=== PATIENT | female | born 2000 | race Caucasian/White ===

== ENCOUNTER 2024-07-21 19:23 | Inpatient (IN) | payer OTHER, SELFPAY ==
--- OUTSIDE RECORDS SUMMARY | 2024-07-21 19:28 | XMS_ITS | Clinical Summary ---
Author Organization [facility] Address [address] [place] [phone] Phone Care Team Providers Care Lead Pressman [employer] Name Role Phone Physician, No Pcp Primary Care Provider Unavaila ble Allergies Active Allergy Reactions Criticality Noted Date Comments Sulfa (Sulfonamide Antibiotics) 09/2024 Medications Medication Sig Dispensed Refills Start Date End Date Status LORazepam (ATIVAN) 0.5 mg tablet Take 1 tablet (0.5 mg total) by mouth 1 (one) time each day. Max Daily Amount: 0.5 mg Active buPROPion SR (WELLBUTRIN SR) 150 mg 12 hr tablet Take 1 tablet (150 mg total) by mouth 1 (one) time each day. Do not crush, chew, or split. Active cloNIDine (CATAPRES) 0.1 mg tablet Take 1 tablet (0.1 mg total) by mouth 2 (two) times a day. Active norethindrone-ethinyl estradiol (FEMHRT 1/5) 1-5 mg-mcg per tablet Take 1 tablet by mouth 1 (one) time each day. Active DULoxetine (CYMBALTA) [address] capsule Take 2 capsules (120 mg total) by mouth 1 (one) time each day. Do not crush or chew. Active ARIPiprazole (ABILIFY) 5 mg tablet Take 1 tablet (5 mg total) by mouth 1 (one) time each day. Active methylphenidate 36 mg ER tablet Take 1 tablet (36 mg total) by mouth 1 (one) time each day in the morning. Do not crush, chew, or split. Max Daily Amount: 36 mg Active Encounters Date Type Department Care Team Description 07/20/2024 7:18 PM EST - 07/21/2024 7:08 PM EST Emergency [facility] Emergency [address] [place] [address] Dallas Negrete MD Millay, Scot A, MD Cauchon, Matthew C, Major depressive disorder, recurrent episode, moderate (CMS/HCC) (Primary Dx) Discharge Disposition: Another Health Care Institution Not Defined from Last 3 Months Social History Tobacco Use Types Packs/Day Years Used Date Smoking Tobacco: Never Assessed Sex and Gender Information Value Date Recorded Sex Assigned at Female 07/20/2024 8:41 PM EST Gender Identity Female 07/20/2024 8:41 PM EST Sexual Orientation Straight 07/20/2024 8: 41 PM EST Job Start Date Occupation Industry Not on file Not on file Not on file Obstetrics History Last Filed Vital Signs Vital Sign Reading Time Taken Comments Blood Pressure 94/68 07/21/2024 3:33 PM EST Pulse 90 07/21/2024 3:33 PM EST Temperature 36.3 ??C (97.3 ??F) 07/21/2024 3:33 PM ES T Respiratory Rate 18 07/21/2024 5:54 AM EST Oxygen Saturation 100% 07/21/2024 3:33 PM EST Inhaled Oxygen Concentration - - Weight 72.6 kg (160 lb) 07/20/2024 7:23 PM EST Height 160 cm (5' 3 ) 07/20/2024 7:23 PM EST Body Mass Index 28.34 07/20/2024 7:23 PM EST Plan of Treatment Health Maintenance Due Date Last Done Comments Cholesterol Screening (Lipid Panel) 07/17/2019 HIV Screening 07/17/2019 Hepatitis C Screening 07/17/2019 Social Influencers of Health Screening 07/17/2019 Cervical Cancer Screening: Pap Smear 02/16/2020 COVID-19 Vaccine ( season) 2024 Influenza Vaccine (#1) 2024 9, 04/01/2017, 02/22/2016, Additional history exists Depression Screening 07/06/2025 07/06/2024 DTaP,Tdap,and Td Vaccines (8 - Td or Tdap) 10/17/2030 10/17/2020, 05/27/2011, 04/18/2004, Additional history exists HIB Vaccines Completed 05/29/2000, 12/1999, 1999, Additional history exists Pneumococcal Vaccine: Pediatrics (0 to 5 Years) and At-Risk Patients (6 to 64 Years) Completed 08/27/2000, 05/29/2000, 02/20/2000 Hepatitis B Vaccines Completed 07/29/2001, 04/06/2001, 1999 MMR Vaccines Completed 04/27/2003, 05/29/2000 IPV Vaccines Completed 04/18/2004, 08/14, 1999, Additional history exists Varicella Vaccines Completed 07/01/2007, 02/20/2000 HPV Vaccines Completed 02/22/2016, 08/15, 03/07/2015 Meningococcal ACWY Vaccine Completed 04/01, 08/31/2012, 05/27/2011 Hepatitis A Vaccines Aged Out No long er eligible based on patient's age to complete this topic RSV Immunization Patients Under 20 months Aged Out No longer eligible based on patient's age to complete this topic Procedures Procedure Name Priority Date/Time Associated Diagnosis Comments ECG 12-LEAD STAT 07/20/2024 11:05 PM EST ECG 12-LEAD STAT 07/20/2024 8:10 PM EST CBC WITH AUTO DIFFERENTIAL STAT 07/20/2024 7:59 PM EST SALICYLATE LEVEL STAT 07/20/2024 7:59 PM EST ACETAMINOPHEN LEVEL STAT 07/20/2024 7 :59 PM EST ETHANOL STAT 07/20/2024 7:59 PM EST COMPREHENSIVE METABOLIC PANEL STAT 07/20/2024 7:59 PM EST CBC AND DIFFERENTIAL STAT 07/20/2024 7:59 PM EST POC , URINE DIAGNOSTIC STAT 07/20/2024 7:49 PM EST POC , URINE DIAGNOSTIC STAT 07/20/2024 7:45 PM EST METHADONE SCREEN, URINE STAT 07/20/2024 7:43 PM EST PHENCYCLIDINE, URINE STAT 07/20/2024 7:43 PM EST BUPRENORPHINE SCREEN, URINE STAT 07/20/2024 7:43 PM EST DRUG ABUSE SCREEN 8A PANEL, URINE STAT 07/20/2024 7:43 PM EST from Last 3 Months Results * (ABNORMAL) CBC auto differential (07/20/2024 7:59 PM EST) [facility] WBC 11.9(H) 4.8 - 10.8 K/mcL LAB HEMETOLOGY METHOD 07/20/2024 8:[address] [facility] RBC 4.40 3.80 - 4.80 M/mcL LAB HEMETOLOGY METHOD 07/20/2024 8:[address] [facility] Hemoglobin 13.6 11.5 - 16.0 g/dL LAB HEMETOLOGY METHOD 07/20/2024 8:[address] [facility] Hematocrit 38.9 35.0 - 47.0 % LAB HEMETOLOGY METHOD 07/20/2024 8:[address] [facility] MCV 89.2 79.0 - 98.0 FL LAB HEMETOLOGY METHOD 07/20/2024 8:[address] [facility] MCH 31.2 27.0 - 32.0 pcg LAB HEMETOLOGY METHOD 07/20/2024 8:[address] [facility] MCHC 35.0 32.0 - 37.0 g/dL LAB HEMETOLOGY METHOD 07/20/2024 8:[address] [facility] RDW 11.0 11.0 - 15.0 % LAB HEMETOLOGY METHOD 07/20/2024 8:[address] [facility] Platelets 284 130 - 400 K/mcL LAB HEMETOLOGY METHOD 07/20/2024 8:[address] [facility] MPV 10.5 7.0 - 11.0 FL LAB HEMETOLOGY METHOD 07/20/2024 8:[address] [facility] NRBC 0.0 <1.0 % LAB HEMETOLOGY METHOD 07/20/2024 8:[address] [facility] NRBC Absolute 0.00 <0.10 K/mcL LAB HEMETOLOGY METHOD 07/20/2024 8:[address] [facility] Neutrophils Relative 71.2 % LAB HEMETOLOGY METHOD 07/20/2024 8:[address] [facility] Lymphocytes Relative 17.8 % LAB HEMETOLOGY METHOD 07/20/2024 8:[address] [facility] Monocytes Relative 9.8 % LAB HEMETOLOGY METHOD 07/20/2024 8:[address] [facility] Eosinophils Relative 0.4 % LAB HEMETOLOGY METHOD 07/20/2024 8:[address] [facility] Basophils Relative 0.3 % LAB HEMETOLOGY METHOD 07/20/2024 8:[address] [facility] Immature Granulocytes Relative 0.5 % LAB HEMETOLOGY METHOD 07/20/2024 8:[address] [facility] Neutrophils Absolute 8.45(H) 1.50 - 7.00 K/mcL LAB HEMETOLOGY METHOD 07/20/2024 8:[address] [facility] Lymphocytes Absolute 2.12 1.00 - 5.00 K/mcL LAB HEMETOLOGY METHOD 07/20/2024 8:[address] [facility] Monocytes Absolute 1.16(H) 0.20 - 1.00 K/mcL LAB HEMETOLOGY METHOD 07/20/2024 8:[address] [facility] Eosinophils Absolute 0.05 0.00 - 0.50 K/mcL LAB HEMETOLOGY METHOD 07/20/2024 8:31 PM EST [facility] Basophils Absolute 0.04 0.00 - 0.20 K/[facility] LAB HEMETOLOGY METHOD 07/20/2024 8:31 PM EST [facility] Immature Granulocytes Absolute 0.06(H) 0.00 - 0.03 K/[facility] LAB HEMETOLOGY METHOD 07/20/2024 8:31 PM EST [facility] Blood Venous blood specimen / Unknown Venipuncture / Unknown 07/20/2024 7:59 PM EST 07/20/2024 8:11 PM EST Dallas Negrete MD LAB BLOOD ORDERABLE S Performing Organization Address City/[facility]/ZIP Co de Phone Number [facility] [address] [place] [address], * Ethanol (07/20/2024 7:59 PM EST) Ethanol Level <3 0 - 10 mg/dL LAB CHEMISTRY METHOD 07/20/2024 8:50 PM EST [facility] Blood Venous blood specimen / Unknown Venipuncture / Unknown 07/20/2024 7:59 PM EST 07/20/2024 8:11 PM EST Dallas Negrete MD LAB BLOOD ORDERABLE S Performing Organization Address City/[facility]/ZIP Co de Phone Number [facility] [address] [place] [address], * (ABNORMAL) Acetaminophen level (07/20/2024 7:59 PM EST) Acetaminophen Level <2.0(L) 10.0 - 30.0 mcg/mL LAB CHEMISTRY METHOD 07/20/2024 8:50 PM EST [facility] Blood Venous blood specimen / Unknown Venipuncture / Unknown 07/20/2024 7:59 PM EST 07/20/2024 8:11 PM EST Dallas Negrete MD LAB BLOOD ORDERABLE S [facility] [address] [place] [address], [place] [phone] * (ABNORMAL) Salicylate level (07/20/2024 7:59 PM EST) Salicylate Level <1.7(L) 2.0 - 29.0 mg/dL LAB CHEMISTRY METHOD 07/20/2024 8:50 PM EST [facility] Blood Venous blood specimen / Unknown Venipuncture / Unknown 07/20/2024 7:59 PM EST 07/20/2024 8:11 PM EST Dallas Negrete MD LAB BLOOD ORDERABLE S Performing Organization Address City/[facility]/ZIP Co de Phone Number [facility] [address] [place] [address], [place] [phone] * (ABNORMAL) Comprehensive metabolic panel (07/20/2024 7:59 PM EST) Sodium 135 133 - 145 mmol/L LAB CHEMISTRY METHOD 07/20/2024 8:[address] [facility] Potassium 3.9 3.5 - 5.5 mmol/L LAB CHEMISTRY METHOD 07/20/2024 8:[address] [facility] Chloride 105 96 - 110 mmol/L LAB CHEMISTRY METHOD 07/20/2024 8:[address] [facility] CO2 24 21 - 32 mmol/L LAB CHEMISTRY METHOD 07/20/2024 8:[address] [facility] Anion Gap 6 3 - 11 LAB CHEMISTRY METHOD 07/20/2024 8:[address] [facility] Glucose 136(H) 70 - 100 mg/dL LAB CHEMISTRY METHOD 07/20/2024 8:[address] [facility] BUN 12 5 - 25 mg/dL LAB CHEMISTRY METHOD 07/20/2024 8:[address] [facility] Creatinine 0.91 0.50 - 1.10 mg/dL LAB CHEMISTRY METHOD 07/20/2024 8:[address] [facility] eGFR 90 >=60 mL/min/1. 73m2 LAB CHEMISTRY METHOD 07/20/2024 8:[address] [facility] Comment:Calculation based on the??Chronic Kidney Disease Epidemiology Collaboration (CKD-EPI) equation refit??without adjustment for race. BUN/Creatinine Ratio 13.2 LAB CHEMISTRY METHOD 07/20/2024 8:[address] [facility] Calcium 9.2 8.5 - 10.5 mg/dL LAB CHEMISTRY METHOD 07/20/2024 8:[address] [facility] AST (SGOT) 13 10 - 42 unit/L LAB CHEMISTRY METHOD 07/20/2024 8:[address] [facility] ALT (SGPT) 21 10 - 60 unit/L LAB CHEMISTRY METHOD 07/20/2024 8:[address] [facility] Alkaline Phosphatase 62 42 - 121 unit/L LAB CHEMISTRY METHOD 07/20/2024 8:[address] [facility] Total Protein 6.7 6.0 - 8.0 g/dL LAB CHEMISTRY METHOD 07/20/2024 8:[address] [facility] Albumin 3.9 3.2 - 5.0 g/dL LAB CHEMISTRY METHOD 07/20/2024 8:[address] [facility] Total Bilirubin 0.3 0.0 - 1.4 mg/dL LAB CHEMISTRY METHOD 07/20/2024 8:[address] [facility] Blood Venous blood specimen / Unknown Venipuncture / Unknown 07/20/2024 7:59 PM EST 07/20/2024 8:11 PM EST Dallas Negrete MD LAB BLOOD ORDERABLE S [facility] [address] [place] [address], [place] [phone] * POC , urine manually resulted (07/20/2024 7:49 PM EST) Only the most recent of2 resultswithin the time period is included. HCG, Ur POC Negative Negative POC hCG Int QC Pass? Yes Yes Urine Urine specimen obtained by clean catch procedure / Unknown 07/20/2024 7:49 PM EST Dallas Negrete MD POINT OF CARE TEST ENTER/EDIT ORDERABLES * Drug abuse screen 8a panel, urine (07/20/2024 7:43 PM EST) Amphetamine Screen, Ur Negative Negative LAB CHEMISTRY METHOD 07/20/2024 9:[address] [facility] Comment:Certain OTC medicati ons containing ephedrine, phenylephrine, pseudoephedrine and phenylpropanolamine can cause false positive results. Barbiturate Screen, Ur Negative Negative LAB CHEMISTRY METHOD 07/20/2024 9:14 PM EST [facility] Benzodiazepine Screen, Ur Negative Negative LAB CHEMISTRY METHOD 07/20/2024 9:[address] [facility] Cocaine Screen, Ur Negative Negative LAB CHEMISTRY METHOD 07/20/2024 9:14 PM EST [facility] Opiate Screen, Ur Negative Negative LAB CHEMISTRY METHOD 07/20/2024 9:[address] [facility] Cannabinoid (THC) Screen, Ur Negative Negative LAB CHEMISTRY METHOD 07/20/2024 9:[address] [facility] Comment:Specimens from patie nts taking pantoprazole sodium (Protonix) have been shown to produce false positive results. Oxycodone Screen, Ur Negative Negative LAB CHEMISTRY METHOD 07/20/2024 9:14 PM EST [facility] Fentanyl, Ur Negative Negative LAB CHEMISTRY METHOD 07/20/2024 9:[address] [facility] Urine Urine specimen obtained by clean catch procedure / Unknown Non-blood Collection / Unknown 07/20/2024 7:43 PM EST 07/20/2024 8:04 PM EST Tamika [facility] - 07/20/2024 9:14 PM EST Assay cutoffs: Amphetamines ? 1000 ng/mL Barbiturates ?200 ng/mL Benzodiazepines ?? 200 ng/mL Cocaine ? 300 ng/mL Fentanyl ?1 ng/mL Opiates ? 300 ng/mL Oxycodone ? 100 ng/mL THC ?50 ng/mL Semi-quantitative assay for screening purposes only. Unconfirmed screening result should not be used for non-medical purposes. *ALTERNATE METHOD CONFIRMATION DONE UPON REQUEST ONLY* Dallas Negrete MD LAB URINE ORDERABLE S Performing Organization Address [facility] de Phone Number [facility] [address] [place] [address], * Buprenorphine screen, urine (07/20/2024 7:43 PM EST) [facility] Buprenorphine Screen Urine Negative Negative LAB CHEMISTRY METHOD 07/20/2024 8:48 PM EST [facility] Urine Urine specimen obtained by clean catch procedure / Unknown Non-blood Collection / Unknown 07/20/2024 7:43 PM EST 07/20/2024 8:04 PM EST Tamika [facility] - 07/20/2024 8:48 PM EST Assay cutoff 5 ng/mL Semi-quantitative assay for screening purposes only. Unconfirmed screening result should not be used for non-medical purposes. *ALTERNATE METHOD CONFIRMATION DONE UPON REQUEST ONLY* Dallas Negrete MD LAB URINE ORDERABLE S Performing Organization Address [facility]/ZIP Co de Phone Number [facility] [address] [place] [address], [place] [phone] * Methadone, urine (07/20/2024 7:43 PM EST) Methadone Screen, Urine Negative Negative LAB CHEMISTRY METHOD 07/20/2024 8:48 PM EST [facility] Comment: Assay cutoff 300 ng/mL Semi-quantitative assay for screening purposes only. Unconfirmed screening result should not be used for non-medical purposes. *ALTERNATE METHOD CONFIRMATION DONE UPON REQUEST ONLY* Urine Urine specimen obtained by clean catch procedure / Unknown Non-blood Collection / Unknown 07/20/2024 7:43 PM EST 07/20/2024 8:04 PM EST Dallas Negrete MD LAB URINE ORDERABLE S Performing Organization Address [facility]/ZIP Co de Phone Number [facility] [address] [place] [address], [place] [phone] * Phencyclidine, urine (07/20/2024 7:43 PM EST) PCP Scrn, Ur Negative Negative LAB CHEMISTRY METHOD 07/20/2024 8:48 PM EST [facility] Comment: Assay cutoff 25 ng/mL Semi-quantitative assay for screening purposes only. Unconfirmed screening result should not be used for non-medical purposes. *ALTERNATE METHOD CONFIRMATION DONE UPON REQUEST ONLY* Urine Urine specimen obtained by clean catch procedure / Unknown Non-blood Collection / Unknown 07/20/2024 7:43 PM EST 07/20/2024 8:04 PM EST Dallas Negrete MD LAB URINE ORDERABLE S [facility] [address] [place] [address], [place] [phone] from Last 3 Months Care Teams Lead [employer]man [employer] Relationship Specialty Start Date End Date Physician, No Pcp PCP - General 07/20/24
[2024-07-21 19:40] VITALS: BP 102/71; PULSE 90; RESP 16; TEMP 36.6; O2SAT 99
[2024-07-21 20:25] VITALS: BMI 28.1
--- NOTE | 2024-07-21 23:01 | PC.ADMIT ---
PT IS A 24 YEAR OLD, MALTESE SPEAKING, FEMALE ADMITTED TO [facility] FROM [facility] FOR AN INTENTIONAL SUICIDE ATTEMPT VIA OVERDOSE ON CLONIDINE. PT WAS ADMITTED ON A CONDITIONAL VOLUNTARY. 15 MINUTE CHECKS. PT HAS TURNERS SYNDROME. NO OTHER MEDICAL CONCERNS. SKIN CHECK WAS UNREMARKABLE. INDEPENDENT AMBULATION. EKG NORMAL SINUS RHYTHM. VITAL SIGNS STABLE. PT HAS A HISTORY OF CHRONIC DEPRESSION. NO PRIOR PSYCHIATRIC ADMISSIONS. NO PRIOR SUICIDE ATTEMPTS. NEGATIVE TOX SCREEN. SULFA ALLERGY. PT REPORTS THAT SHE DRINKS ALCOHOL 1-2 TIMES PER WEEK, 1 OR 2 DRINKS PER TIME. PT REPORTS THAT SHE HAS A THERAPIST WHICH SHE FINDS MINIMALLY HELPFUL. PT HAS A PSYCHIATRIST AND IS ON MEDICATIONS WHICH SHE ALSO FINDS MINIMALLY HELPFUL. SHE REPORTS MILD ANXIETY. SEVERE DEPRESSION. OCCASIONAL THOUGHTS OF SUICIDE. DENIES ANY CURRENT THOUGHTS, PLAN OR INTENT. PT DENIES AH/VH/HI. PT REPORTS EXPERIENCING FREQUENT EPISODES OF DISSOCIATION WHERE SHE FEELS SHE IS NOT IN REALITY . PT LIVES WITH HER MOTHER WHICH SHE FEELS LIKE A BURDEN TO AT TIMES. PT REPORTS THAT SHE HAS A MILD TRAUMA HISTORY. SHE REPORTS HER SISTER HAD A SUBSTANCE USE PROBLEM YEARS AGO WHICH WAS DIFFICULT. HER FATHER FROM ALCOHOL RELATED CAUSES APPROXIMATELY ONE YEAR AGO. PT SIGNED RELEASES, PARTICIPATED IN SAFETY TOOL, AND WENT TO SLEEP. FEELS SAFE ON UNIT.
--- NOTE | 2024-07-21 23:36 | HO.PM.IMCN ---
History of Present Illness Data of Consult Service Date: 07/21/24 Requesting physician: Marky Gillette Primary Care Provider: Unknown Physician HPI Reason for consult: Medical consult Patient is a 24-year-old female with a past medical history significant for alcohol use disorder, and Nash's syndrome, transferred from [facility] and admitted to adult Psychiatry for intentional suicide attempt to overdose on clonidine. She reports that she drinks 1 to 2 times a week not in excess and has no history of alcohol withdrawal. She has no current medical complaints including headache, change in vision, chest pain, shortness of breath, abdominal pain, urinary symptoms including frequency urgency or hematuria. Review of Systems Constitutional: Constitutional: Denies body ache(s), Denies chills, Denies fatigue, Denies fever(s) and Denies headache(s) Eyes: Eyes: Denies change in vision and Denies photophobia ENT: Denies headache(s), Denies nasal congestion, Denies nasal discharge and Denies neck pain Cardiovascular: Cardiovascular: Denies chest pain, Denies rapid heart rate, Denies leg edema, Denies lightheadedness and Denies dyspnea Respiratory: Respiratory: Denies chest congestion, Denies cough, Denies dyspnea and Denies wheezing Gastrointestinal: Gastrointestinal: Denies constipation, Denies diarrhea, Denies nausea and Denies vomiting Genitourinary: Genitourinary: Denies hematuria, Denies difficulty voiding and Denies urinary urgency Musculoskeletal: Musculoskeletal: Denies neck pain, Denies numbness and Denies tingling Integumentary/Breasts: Skin/Breast: Denies rash Neurologic: Denies confusion, Denies headache(s), Denies numbness and Denies tingling Psychiatric: Psychiatric: Denies confusion Endocrine: Endocrine: Denies fatigue Hematologic/Lymphatic: Hematologic/Lymphatic: Denies easy bleeding and Denies easy bruising Allergic/Immunologic: Allergic/Immunologic: Denies wheezing PMFSH Functional capacity: independent ambulation Social History Household Members: Family Household Members Other:: MOTHER Housing: House Do you presently have visiting nurse or other home services: No Patient Tobacco Use Status: Never used Tobacco Smoked in Last 30 Days: No e-Cigarette/Vaping Use: Never Used Patient Interested in Nicotine Replacement: No Patient Given Instructions on How to Stop Smoking: No Second Hand Smoke Exposure: No Use of substances other than those prescribed or required for medical reasons: No Currently Displaying Signs/Symptoms of Drug Intoxication Withdrawal: No Any prior treatment program specific to substance use: No Have you been hit, kicked, punched, or otherwise hurt by someone within the past year? If so, by whom?: No Do you feel safe in your current relationship?: No Current Relationship Is there a partner from a previous relationship who is making you feel unsafe now?: No Are you made to feel afraid or neglected: No Advance Directives: No Advance Directives Information Provided: No Do you have thoughts of harming others: None Do you have a plan to hurt others: No Plan Recently lost weight without trying: No Eating poorly because of decreased appetite: No Nutrition Risks: No Nutritional Risk Patient : No : No Poor oral hygiene: No Narrative: Social occasional alcohol, 1 to 2 times a week, 1-2 drinks at a time. No substance use or smoking Meds Allergies Allergy/AdvReac Type Severity Reaction Status Date / Time Sulfa (Sulfonamide Allergy Unknown Verified 07/21/24 20:23 Antibiotics) Active Medications: Current Medications Acetaminophen (Acetaminophen 325 Mg Tablet) 650 mg PO Q6H PRN PRN Reason: Headache/Pain Mild Scale (1-3) Al Hydroxide/Mg Hydroxide (Magnesium Hydrox/Alum Hydrox 30 Ml Oral.Susp) 30 ml PO Q6H PRN PRN Reason: Heartburn/Nausea Hydroxyzine HCl (Hydroxyzine Hcl 25 Mg Tablet) 25 mg PO Q6H PRN PRN Reason: Anxiety Magnesium Hydroxide (Milk Of Magnesia 30 Ml Oral.Susp) 30 ml PO DAILY PRN PRN Reason: Constipation Nicotine Polacrilex (Nicotine Polacrilex 2 Mg Gum) 4 mg BUCCAL Q2H PRN PRN Reason: Nicotine Cravings Trazodone HCl (Trazodone Hcl 50 Mg Tablet) 50 mg PO BEDTIME MRX1 PRN PRN Reason: Insomnia Home Medications ?Medication ?Instructions ?Recorded ?Confirmed ?Last Taken ?Type aripiprazole 5 mg tablet 5 mg PO DAILY 07/21/24 07/21/24 Unknown History bupropion HCl 150 mg 24 hr tablet, 150 mg PO DAILY 07/21/24 07/21/24 Unknown History extended release dextroamphetamine-amphetamine ER 25 mg PO QAM 07/21/24 07/21/24 Unknown History 25 mg 24hr capsule,extend release duloxetine 60 mg capsule,delayed 120 mg PO DAILY 07/21/24 07/21/24 Unknown History release Physical Exam Vital Signs and Narrative: Vital Signs: Last Vital Signs Temp 97.9 F 07/21/24 19:40 Pulse 90 07/21/24 19:40 Resp 16 07/21/24 19:40 BP 102/71 07/21/24 19:40 Pulse Ox 99 07/21/24 19:40 O2 Del Method Room Air 07/21/24 19:40 BMI result Body Mass Index 28.1 General: AOx3, no acute distress Resp: CTA bilaterally CVS: S1, S2, RRR GI: +BS, NT, no distention Skin: Warm, dry Neuro: Cranial nerves II-XII grossly intact bilaterally. Motor grossly intact bilaterally Extremities: No LE edema Psych: Appropriate affect Const: General: No confusion Orientation/consciousness: No confusion Eyes: Direct Ophthalmoscopy: No photophobia Neuro: General: No confusion Assessment and Plan (1) Medical clearance for psychiatric admission: Status: Acute Plan Patient is a 24-year-old female with a past medical history significant for alcohol use disorder, and Nash's syndrome, transferred from [facility] and admitted to adult Psychiatry for intentional suicide attempt to overdose on clonidine. No acute medical concerns. Patient cleared for psychiatric floor. Mood disorder - plan per psych Alcohol use disorder - does not report significant alcohol use at this time therefore no concern for alcohol withdrawal Thank you for allowing me to participate in the pt's care. Signing off for now. Please contact the medical team if any questions or concerns.
[2024-07-22 08:00] VITALS: BP 88/51; PULSE 70; RESP 18; TEMP 36.6; O2SAT 99
[2024-07-22 09:58] LABS: MANUAL DIFF FLAG NO
[2024-07-22 10:08] LABS: Basophils Percent Auto 0.3 % (0-2); Eosinophils Absolute Auto 0.1 X10*3/uL (0.0-0.4); Eosinophils Percent Auto 2.1 % (0-4); Hematocrit 41.1 % (37.0-47.0); Hemoglobin 14.3 g/dl (12.0-16.0); Imm Gran Abs Auto 0.03 X10*3/uL (0.00-0.03); Imm Gran Pct Auto 0.5 % (0.0-0.4); Lymphocytes Absolute Auto 2.4 X10*3/uL (1.2-4.9); Lymphocytes Percent Auto 36.1 % (20-40); Mean Corpuscular HGB Conc 34.8 g/dl (31.0-35.0); Mean Corpuscular Hemoglobin 31.6 pg (27.0-33.0); Mean Corpuscular Volume 90.9 fL (80.0-98.0); Mean Platelet Volume 10.6 fL (9.4-12.3); Monocytes Absolute Auto 0.5 X10*3/uL (0.1-1.2); Monocytes Percent Auto 6.9 % (2-11); Neutrophils Absolute Auto 3.5 x10*3/uL (2.0-8.3); Neutrophils Percent Auto 54.1 % (45-73); Platelet Count 252 X10*3/uL (160-400); Red Blood Count 4.52 X10*6/uL (4.20-5.50); Red Cell Distribution Width 11.4 % (11.0-16.0); White Blood Count 6.5 X10*3/uL (4.8-10.8)
[2024-07-22 11:00] LABS: Alanine Aminotransferase 13 U/L (0-31); Alkaline Phosphatase 61 U/L (39-117); Aspartate Amino Transferase 25 U/L (5-31); Bilirubin Direct 0.1 mg/dL (0.0-0.5); Bilirubin Total 0.4 mg/dL (0.0-1.0); Cholesterol 190 mg/dL (<200); HDL Cholesterol 58 mg/dL (>40); LDL Cholesterol Calculated 106 mg/dL (<100); Total Protein 6.5 g/dL (6.5-8.0); Triglycerides 134 mg/dL (<150)
[2024-07-22 11:06] LABS: Free T4 (Free Thyroxine) 1.17 ng/dL (0.71-1.85)
[2024-07-22 11:15] LABS: Folate 7.3 ng/mL (> or = 4.0); Vitamin B12 212 pg/mL (200-900)
[2024-07-22 11:18] LABS: Estimated Average Glucose 97 mg/dL; Hemoglobin A1C 113.2644 umol/L; Total Hemoglobin (HGBA1C) 3598.4106 umol/L
--- NOTE | 2024-07-22 11:39 | HO.PSYADMNOT ---
HPI Date of Service: 07/22/24 Chief Complaint: Major depressive disorder, recurrent, moderate Sources of Information: patient interviewed, chart reviewed and crisis/core team assessment reviewed HPI Subjective Notes: Romero Warning, Conditional Voluntary and 3 Day Narrative: Pt is a 24-year-old female with history of Nash syndrome, depression anxiety, starting in middle school who self presents for worsening depression, following SI with intentional overdose. Patient reports that on Cymbalta 120 mg her depression was a little improved and last summer she was doing overall okay, enjoying working at [employer] in [place]. Got back this fall, at home by herself, depression set back in but it ebbed some. Around late April depression worsened, with seasonal change and the approaching 1 year anniversary of her fathers this June. Patient mostly staying at home by herself throughout the day. With worsening depression, pt developed diminished interest,concentration, appetite low energy, increased guilty feelings, and trouble sleeping; chronically she'll have intermittent passive wish however, these thoughts intensified. Due to depression, started missing Cymbalta doses about 3x week over last 2 weeks This past week, she had an increase in self-deprecating thoughts, that she's a bad person. She tried to distract herself but became overwhelmed with unrelenting thoughts that she does not deserve to be here and made sudden decision to take an overdose, left a note from mom and took overdose of Clonidine; she immediately called 911. In hindsight she does not think she wanted to be forever, and more just wanted the intrusive thoughts to stop. Patient currently not suicidal but remains very depressed and open to medication management. Denies history of manic type episodes or behaviors; no drug use; minimal alcohol intake; no overt trauma history Patient seen on 07/22/2024 around 11:30 Past Psychiatric History: No past psych admissions No past suicide attempts Medication trials: -currently on Cymbalta 120 mg the past year which she finds helpful -currently on Wellbutrin XL 150 mg for about a year which she thought was helpful -currently on Abilify 5 mg for about a year which she feels helped with moments of deeper depression -prozac: helped but caused tremors -paxil: Does not remember effect -others Medical Evaluation Reviewed: Yes [facility] Medical History (Updated 07/23/24 @ 09:19 by Marky Gillette MD) MDD (major depressive disorder), recurrent severe, without psychosis Family History: Mother: Depression father: alcoholism Sister: Addiction history Social History: graduate with associate's degree Father a year ago July 2023 3 sisters lives at home mom who is supportive Substance History: None Trauma History: No overt trauma history Diagnostics Vital Signs (24Hr): Vital Signs - 24 hr 07/21/24 19:40 07/22/24 08:00 Temperature 97.9 F 97.8 F Pulse Rate 90 70 Respiratory Rate 16 18 Blood Pressure 102/71 88/51 L Pulse Oximetry 99 99 Oxygen Delivery Method Room Air Room Air BMI result Body Mass Index 28.1 Labs 07/22/24 09:30 Labs: Laboratory Results - last 48 hr 07/22/24 09:30 WBC 6.5 RBC 4.52 Hgb 14.3 Hct 41.1 MCV 90.9 MCH 31.6 MCHC 34.8 RDW 11.4 Plt Count 252 MPV 10.6 Immature Gran % (Auto) 0.5 H Neut % (Auto) 54.1 Lymph % (Auto) 36.1 [place] % (Auto) 6.9 Eos % (Auto) 2.1 Baso % (Auto) 0.3 Lymph # (Auto) 2.4 [place] # (Auto) 0.5 Eos # (Auto) 0.1 Baso # (Auto) 0.0 Abs Immat Gran (auto) 0.03 Absolute Neuts (auto) 3.5 Absolute Nucleated RBC 0.000 Nucleated RBC % (auto) 0.0 Estimat Average Glucose 97 Hemoglobin A1c % 5.0 Total Bilirubin 0.4 Direct Bilirubin 0.1 AST 25 ALT 13 Alkaline Phosphatase 61 Total Protein 6.5 Albumin 4.0 Triglycerides 134 Cholesterol 190 LDL Cholesterol, Calc 106 H HDL Cholesterol 58 Vitamin B12 212 Folate 7.3 TSH 2.20 Free T4 1.17 Meds/Allergies Meds Home Medications ?Medication ?Instructions ?Recorded ?Confirmed ?Type aripiprazole 5 mg tablet 5 mg PO DAILY 07/21/24 07/22/24 History bupropion HCl 150 mg 24 hr tablet, 150 mg PO DAILY 07/21/24 07/22/24 History extended release duloxetine 60 mg capsule,delayed 120 mg PO DAILY 07/21/24 07/22/24 History release lorazepam 0.5 mg tablet 0.5 mg PO DAILY PRN Anxiety 07/22/24 07/22/24 History methylphenidate HCl 36 mg 36 mg PO DAILY 07/22/24 07/22/24 History tablet,extended release 24 hr trazodone 50 mg tablet 50 - 100 mg PO BEDTIME 07/22/24 07/22/24 History Allergies Allergies Allergy/AdvReac Type Severity Reaction Status Date / Time Sulfa (Sulfonamide Allergy Unknown Verified 07/21/24 20:23 Antibiotics) Mental Status Exam Mental Status Exam Narrative: Pt is alert and oriented; behavior is cooperative, quiet, calm; patient is not in distress; dressed in casual attire with unkempt hair but adequate hygiene; mood is described as depressed and affect congruent, downcast, reticent; eye contact limited; Speech is slow and soft; psychomotor retardation present; thought process is organized and goal directed; Thought content is on self-deprecating thoughts but also on tx; otherwise pertinent to relevant topics and without any delusional content, paranoid ideations or grandiosity; intermittent passive SI remains but active SI fully resolved; no HI; intrusive thoughts; not sure if AH though patient does seem to be a little internally preoccupied. Patients insight and judgment impaired Assessment & Plan Assessment & Plan (1) MDD (major depressive disorder), recurrent severe, without psychosis: Status: Acute Code(s): F33.2 - Major depressive disorder, recurrent severe without psychotic features (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 Patient reports that on Cymbalta 120 mg her depression was a little improved and last summer she was doing overall okay, enjoying working at [employer] in [place]. Got back this fall, at home by herself, depression set back in but it ebbed some. Around late April depression worsened, with seasonal change and the approaching 1 year anniversary of her fathers this June. Patient mostly staying at home by herself throughout the day. With worsening depression, pt developed diminished interest,concentration, appetite low energy, increased guilty feelings, and trouble sleeping; chronically she'll have intermittent passive wish however, these thoughts intensified. Due to depression, started missing Cymbalta doses about 3x week over last 2 weeks This past week, she had an increase in self-deprecating thoughts, that she's a bad person. She tried to distract herself but became overwhelmed with unrelenting thoughts that she does not deserve to be here and made sudden decision to take an overdose, left a note from mom and took overdose of Clonidine; she immediately called 911. In hindsight she does not think she wanted to be forever, and more just wanted the intrusive thoughts to stop. Patient currently not suicidal but remains very depressed and open to medication management. Denies history of manic type episodes or behaviors; no drug use; minimal alcohol intake; no overt trauma history Formulation/clinical reasoning: Patient has chronic depression and anxiety and prevents with severe depression and clear psychomotor retardation. Also has intrusive thoughts which seem to be self-deprecating thoughts. Will seek to better rule out OCD; need to further assess if any AH. Patient on 3 medications for depression, the combination only being partially helpful. Seems that Abilify was started before Wellbutrin maxed out. Sewer Tapper discussed risks/side effects of medication regimen including risks of antipsychotic/Abilify and also the possibility that with increased Wellbutrin, she may not need Abilify, all of which patient understands. However she wants to remain on Abilify however since she thought it was helpful but agrees to increasing Wellbutrin; will leave Cymbalta since patient found it partially helpful. -history of Nash syndrome which patient cites says something in which has been difficult to accept and a part of her ongoing chronic depression -has therapist however it is clearly not a fit; consistent helpful therapy very likely strong missing component Plan: CV Q 15 minutes Continue Cymbalta 120 mg daily Increase Wellbutrin XL to 300 mg daily Continue Abilify 5 mg daily Will seek together collateral Patient educated on: diagnosis, medication risk/benefits and therapeutic strategies Informed Consent: understands Reason for continued inpatient stay Substantial Risk for: rapid decompensation Statement Statement: I have reviewed the history and physical and performed a pertinent examination on my patient. No changes have occurred unless specified. If the History and Physical was not performed prior to admission, the Hospitalist's service will be consulted for completing the admission physical. Time Spent With Patient Time: Total time managing care of this patient today ____ minutes.
[2024-07-22] MEDS: ARIPiprazole 5 MG TABLET PO (13:01)
[2024-07-22] MEDS: buPROPion HCl XL 300 MG TAB.ER.24H PO (13:01)
[2024-07-22] MEDS: ETHINYL ESTRADIOL PO (14:21)
[2024-07-22] MEDS: NORETHINDRONE ACETATE PO (14:21)
[2024-07-22 20:00] VITALS: BP 128/86; PULSE 104; TEMP 36.7; O2SAT 99
[2024-07-22] MEDS: traZODone HCL 50 MG TABLET PO (21:07)
[2024-07-23 08:00] VITALS: BP 117/72; PULSE 90; TEMP 36.8; O2SAT 98
[2024-07-23] MEDS: ARIPiprazole 5 MG TABLET PO (09:19)
[2024-07-23] MEDS: DULoxetine HCl 60 MG CAPSULE.DR 120 MG PO (09:19)
[2024-07-23] MEDS: NORETHINDRONE ACETATE PO (09:19)
[2024-07-23] MEDS: buPROPion HCl XL 300 MG TAB.ER.24H PO (09:19)
[2024-07-23] MEDS: ETHINYL ESTRADIOL PO (09:19)
--- NOTE | 2024-07-23 09:20 | P.PNPSI_ITS ---
Subjective Subjective Date of Service: 07/23/24 Reason For Visit: Major depressive disorder, recurrent, moderate Interim History: Met with patient; discussed with team Patient reports that she is feeling a little better and has a noticeably brighter affect. She is not sure why she is feeling better, did sleep well enough last night. Patient realized after talking with her mom that she is actually on Wellbutrin 450 mg. Discussed how patient is doing better despite the fact that she has been on lower dose than usual and that perhaps it has been the social interaction of the milieu that has helped her mood increase. Patient started asking about possible discharge Mental Status Exam Mental Status Exam Narrative: Pt is alert and oriented; behavior is cooperative, friendly and calm; patient is not in distress; dressed in casual attire with adequate hygiene; mood is described as better and affect congruent, noticeably brighter; eye contact appropriate; Speech is with a latent pause however otherwise normal rate, volume and prosody; no psychomotor agitation/retardation present; thought process is organized and goal directed; Thought content is on tx, intermittently with self- deprecating thoughts but much less; otherwise pertinent to relevant topics and without any delusional content, paranoid ideations or grandiosity; denies any SI/HI. Denies AVH; seems internally preoccupied but this was addressed and patient said she is just thinking about what she wants to say. Patients insight and judgment improving Diagnostics Vital Signs (24Hr): Vital Signs - 24 hr 07/22/24 20:00 07/23/24 08:00 Temperature 98.1 F 98.2 F Pulse Rate 104 H 90 Blood Pressure 128/86 117/72 Pulse Oximetry 99 98 Oxygen Delivery Method Room Air Room Air BMI result Body Mass Index 28.1 Labs 07/22/24 09:30 Labs: Laboratory Results - last 48 hr 07/22/24 09:30 WBC 6.5 RBC 4.52 Hgb 14.3 Hct 41.1 MCV 90.9 MCH 31.6 MCHC 34.8 RDW 11.4 Plt Count 252 MPV 10.6 Immature Gran % (Auto) 0.5 H Neut % (Auto) 54.1 Lymph % (Auto) 36.1 [place] % (Auto) 6.9 Eos % (Auto) 2.1 Baso % (Auto) 0.3 Lymph # (Auto) 2.4 [place] # (Auto) 0.5 Eos # (Auto) 0.1 Baso # (Auto) 0.0 Abs Immat Gran (auto) 0.03 Absolute Neuts (auto) 3.5 Absolute Nucleated RBC 0.000 Nucleated RBC % (auto) 0.0 Estimat Average Glucose 97 Hemoglobin A1c % 5.0 Total Bilirubin 0.4 Direct Bilirubin 0.1 AST 25 ALT 13 Alkaline Phosphatase 61 Total Protein 6.5 Albumin 4.0 Triglycerides 134 Cholesterol 190 LDL Cholesterol, Calc 106 H HDL Cholesterol 58 Vitamin B12 212 Folate 7.3 TSH 2.20 Free T4 1.17 Medications Medications Current Medications Acetaminophen (Acetaminophen 325 Mg Tablet) 650 mg PO Q6H PRN PRN Reason: Headache/Pain Mild Scale (1-3) Al Hydroxide/Mg Hydroxide (Magnesium Hydrox/Alum Hydrox 30 Ml Oral.Susp) 30 ml PO Q6H PRN PRN Reason: Heartburn/Nausea Aripiprazole (Aripiprazole 5 Mg Tablet) 5 mg PO DAILY [facility] Last Admin: 07/22/24 13:01 Dose: 5 mg Bupropion HCl (Bupropion Hcl Xl 300 Mg Tab.Er.24h) 300 mg PO DAILY [facility] Last Admin: 07/22/24 13:01 Dose: 300 mg Duloxetine HCl (Duloxetine Hcl 60 Mg Capsule.Dr) 120 mg PO DAILY [facility] Hydroxyzine HCl (Hydroxyzine Hcl 25 Mg Tablet) 25 mg PO Q6H PRN PRN Reason: mild Anxiety Magnesium Hydroxide (Milk Of Magnesia 30 Ml Oral.Susp) 30 ml PO DAILY PRN PRN Reason: Constipation Nicotine Polacrilex (Nicotine Polacrilex 2 Mg Gum) 4 mg BUCCAL Q2H PRN PRN Reason: Nicotine Cravings Pt Owned Med ( Fyavolv [ Norethindrone Acetate/Ethinyl Estradiol] 1mg/5mcg Tablets) 1 each PO DAILY [facility] Last Admin: 07/22/24 14:21 Dose: 1 each Trazodone HCl (Trazodone Hcl 50 Mg Tablet) 50 mg PO BEDTIME MRX1 PRN PRN Reason: Insomnia Last Admin: 07/22/24 21:07 Dose: 50 mg Allergies Allergies Allergy/AdvReac Type Severity Reaction Status Date / Time Sulfa (Sulfonamide Allergy Unknown Verified 07/21/24 20:23 Antibiotics) Assessment & Plan Assessment & Plan (1) MDD (major depressive disorder), recurrent severe, without psychosis: Status: Acute Code(s): F33.2 - Major depressive disorder, recurrent severe without psychotic features (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 Patient reports that on Cymbalta 120 mg her depression was a little improved and last summer she was doing overall okay, enjoying working at [employer] in [place]. Got back this fall, at home by herself, depression set back in but it ebbed some. Around late April depression worsened, with seasonal change and the approaching 1 year anniversary of her fathers this June. Patient mostly staying at home by herself throughout the day. With worsening depression, pt developed diminished interest,concentration, appetite low energy, increased guilty feelings, and trouble sleeping; chronically she'll have intermittent passive wish however, these thoughts intensified. Due to depression, started missing Cymbalta doses about 3x week over last 2 weeks This past week, she had an increase in self-deprecating thoughts, that she's a bad person. She tried to distract herself but became overwhelmed with unrelenting thoughts that she does not deserve to be here and made sudden decision to take an overdose, left a note from mom and took overdose of Clonidine; she immediately called 911. In hindsight she does not think she wanted to be forever, and more just wanted the intrusive thoughts to stop. Patient currently not suicidal but remains very depressed and open to medication management. Denies history of manic type episodes or behaviors; no drug use; minimal alcohol intake; no overt trauma history Formulation/clinical reasoning: Patient has chronic depression and anxiety and prevents with severe depression and clear psychomotor retardation. Also has intrusive thoughts which seem to be self-deprecating thoughts. Will seek to better rule out OCD; need to further assess if any AH. Patient on 3 medications for depression, the combination only being partially helpful. Seems that Abilify was started before Wellbutrin maxed out. [employer] Professor discussed risks/side effects of medication regimen including risks of antipsychotic/Abilify and also the possibility that with increased Wellbutrin, she may not need Abilify, all of which patient understands. However she wants to remain on Abilify however since she thought it was helpful but agrees to increasing Wellbutrin; will leave Cymbalta since patient found it partially helpful. -history of Nash syndrome which patient cites says something in which has been difficult to accept and a part of her ongoing chronic depression -has therapist however it is clearly not a fit; consistent helpful therapy very likely strong missing component Hospital course: 07/23 Patient reports that she is feeling a little better and has a noticeably brighter affect. She is not sure why she is feeling better, did sleep well enough last night. Patient realized after talking with her mom that she is actually on Wellbutrin 450 mg. Discussed how patient is doing better despite the fact that she has been on lower dose than usual and that perhaps it has been the social interaction of the milieu that has helped her mood increase. Patient started asking about possible discharge -discussed what appears to be internal preoccupation; patient says her speech latency is just due to thinking through what she wants to say and denies any AH -will continue to monitor patient's progress Plan: CV Q 15 minutes Continue Cymbalta 120 mg daily Continue Wellbutrin XL to 450 mg daily Continue Abilify 5 mg daily Will seek together collateral Patient educated on: diagnosis, medication risk/benefits and therapeutic strategies Informed Consent: understands Reason for continued inpatient stay Substantial Risk for: stable for discharge, rapid decompensation and med/psych decompensation Time Spent With Patient Time: Total time managing care of this patient today ____ minutes.
[2024-07-23 19:46] VITALS: BP 131/95; PULSE 110; RESP 16; TEMP 36.8; O2SAT 99
[2024-07-23] MEDS: traZODone HCL 100 MG TABLET PO (21:37)
[2024-07-23] MEDS: traZODone HCL 50 MG TABLET PO (21:37)
[2024-07-23] MEDS: cloNIDine HCL 0.1 MG TABLET PO (21:37)
[2024-07-24 08:00] VITALS: BP 97/64; PULSE 73; RESP 16; TEMP 36.6; O2SAT 99
--- NOTE | 2024-07-24 08:13 | HO.PSYCHPN ---
Subjective Subjective Date of Service: 07/24/24 Reason For Visit: Major depressive disorder, recurrent, moderate Interim History: Met with patient; discussed with team. Slept better last night. Tense stay in room and reading. Patient reports mood is a little bit better. No suicidal thoughts or thoughts of self-harm. Feels the medications are helpful. Has noticed that Adderall is more effective than Ritalin. A mood perspective, appetite still low along with depression. Medication Compliance: Yes Side effects from medications: No Attending Groups: Intermittent Review of Systems Acute medical concerns: No Review of Systems Review of Systems Unremarkable Mental Status Exam Mental Status Exam Narrative: Pt is alert and oriented; behavior is cooperative, friendly and calm; patient is not in distress; dressed in casual attire with adequate hygiene; mood is described as better and affect congruent, eye contact appropriate; Speech is with a latent pause however otherwise normal rate, volume and prosody; no psychomotor agitation/retardation present; thought process is organized and goal directed; Thought content is on tx and pertinent to relevant topics and without any delusional content, paranoid ideations or grandiosity; denies any SI/HI. Denies AVH. Patients insight and judgment improving Diagnostics Vital Signs (24Hr): Vital Signs - 24 hr 07/23/24 19:46 Temperature 98.2 F Pulse Rate 110 H Respiratory Rate 16 Blood Pressure 131/95 H Pulse Oximetry 99 Oxygen Delivery Method Room Air BMI result Body Mass Index 28.1 Labs 07/22/24 09:30 Labs: Laboratory Results - last 48 hr 07/22/24 09:30 WBC 6.5 RBC 4.52 Hgb 14.3 Hct 41.1 MCV 90.9 MCH 31.6 MCHC 34.8 RDW 11.4 Plt Count 252 MPV 10.6 Immature Gran % (Auto) 0.5 H Neut % (Auto) 54.1 Lymph % (Auto) 36.1 Garfield % (Auto) 6.9 Eos % (Auto) 2.1 Baso % (Auto) 0.3 Lymph # (Auto) 2.4 Garfield # (Auto) 0.5 Eos # (Auto) 0.1 Baso # (Auto) 0.0 Abs Immat Gran (auto) 0.03 Absolute Neuts (auto) 3.5 Absolute Nucleated RBC 0.000 Nucleated RBC % (auto) 0.0 Estimat Average Glucose 97 Hemoglobin A1c % 5.0 Total Bilirubin 0.4 Direct Bilirubin 0.1 AST 25 ALT 13 Alkaline Phosphatase 61 Total Protein 6.5 Albumin 4.0 Triglycerides 134 Cholesterol 190 LDL Cholesterol, Calc 106 H HDL Cholesterol 58 Vitamin B12 212 Folate 7.3 TSH 2.20 Free T4 1.17 Medications Medications Current Medications Acetaminophen (Acetaminophen 325 Mg Tablet) 650 mg PO Q6H PRN PRN Reason: Headache/Pain Mild Scale (1-3) Al Hydroxide/Mg Hydroxide (Magnesium Hydrox/Alum Hydrox 30 Ml Oral.Susp) 30 ml PO Q6H PRN PRN Reason: Heartburn/Nausea Amphetamine/Dextroamphetamine (Dextroamphetamine/Amphetamine Xr 10 Mg Cap.Er.24h) 30 mg PO DAILY [facility] Aripiprazole (Aripiprazole 5 Mg Tablet) 5 mg PO DAILY [facility] Last Admin: 07/23/24 09:19 Dose: 5 mg Bupropion HCl (Bupropion Hcl Xl 150 Mg Tab.Er.24h) 450 mg PO DAILY [facility] Clonidine HCl (Clonidine Hcl 0.1 Mg Tablet) 0.1 mg PO BEDTIME [facility]; Protocol Last Admin: 07/23/24 21:37 Dose: 0.1 mg Duloxetine HCl (Duloxetine Hcl 60 Mg Capsule.Dr) 120 mg PO DAILY [facility] Last Admin: 07/23/24 09:19 Dose: 120 mg Hydroxyzine HCl (Hydroxyzine Hcl 25 Mg Tablet) 25 mg PO Q6H PRN PRN Reason: mild Anxiety Magnesium Hydroxide (Milk Of Magnesia 30 Ml Oral.Susp) 30 ml PO DAILY PRN PRN Reason: Constipation Nicotine Polacrilex (Nicotine Polacrilex 2 Mg Gum) 4 mg BUCCAL Q2H PRN PRN Reason: Nicotine Cravings Pt Owned Med ( Fyavolv [ Norethindrone Acetate/Ethinyl Estradiol] 1mg/5mcg Tablets) 1 each PO DAILY [facility] Last Admin: 07/23/24 09:19 Dose: 1 each Trazodone HCl (Trazodone Hcl 50 Mg Tablet) 50 mg PO BEDTIME MRX1 PRN PRN Reason: Insomnia Last Admin: 07/23/24 21:37 Dose: 50 mg Trazodone HCl (Trazodone Hcl 100 Mg Tablet) 100 mg PO BEDTIME [facility] Last Admin: 07/23/24 21:37 Dose: 100 mg Allergies Allergies Allergy/AdvReac Type Severity Reaction Status Date / Time Sulfa (Sulfonamide Allergy Unknown Verified 07/21/24 20:23 Antibiotics) Assessment & Plan Assessment & Plan (1) MDD (major depressive disorder), recurrent severe, without psychosis: Status: Acute Code(s): F33.2 - Major depressive disorder, recurrent severe without psychotic features (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 Patient reports that on Cymbalta 120 mg her depression was a little improved and last summer she was doing overall okay, enjoying working at [employer] in [place]. Got back this fall, at home by herself, depression set back in but it ebbed some. Around late April depression worsened, with seasonal change and the approaching 1 year anniversary of her fathers this June. Patient mostly staying at home by herself throughout the day. With worsening depression, pt developed diminished interest,concentration, appetite low energy, increased guilty feelings, and trouble sleeping; chronically she'll have intermittent passive wish however, these thoughts intensified. Due to depression, started missing Cymbalta doses about 3x week over last 2 weeks This past week, she had an increase in self-deprecating thoughts, that she's a bad person. She tried to distract herself but became overwhelmed with unrelenting thoughts that she does not deserve to be here and made sudden decision to take an overdose, left a note from mom and took overdose of Clonidine; she immediately called 911. In hindsight she does not think she wanted to be forever, and more just wanted the intrusive thoughts to stop. Patient currently not suicidal but remains very depressed and open to medication management. Denies history of manic type episodes or behaviors; no drug use; minimal alcohol intake; no overt trauma history Formulation/clinical reasoning: Patient has chronic depression and anxiety and prevents with severe depression and clear psychomotor retardation. Also has intrusive thoughts which seem to be self-deprecating thoughts. Will seek to better rule out OCD; need to further assess if any AH. Patient on 3 medications for depression, the combination only being partially helpful. Seems that Abilify was started before Wellbutrin maxed out. Physician Relations Specialist discussed risks/side effects of medication regimen including risks of antipsychotic/Abilify and also the possibility that with increased Wellbutrin, she may not need Abilify, all of which patient understands. However she wants to remain on Abilify however since she thought it was helpful but agrees to increasing Wellbutrin; will leave Cymbalta since patient found it partially helpful. -history of Nash syndrome which patient cites says something in which has been difficult to accept and a part of her ongoing chronic depression -has therapist however it is clearly not a fit; consistent helpful therapy very likely strong missing component Hospital course: 07/23 Patient reports that she is feeling a little better and has a noticeably brighter affect. She is not sure why she is feeling better, did sleep well enough last night. Patient realized after talking with her mom that she is actually on Wellbutrin 450 mg. Discussed how patient is doing better despite the fact that she has been on lower dose than usual and that perhaps it has been the social interaction of the milieu that has helped her mood increase. Patient started asking about possible discharge -discussed what appears to be internal preoccupation; patient says her speech latency is just due to thinking through what she wants to say and denies any AH -will continue to monitor patient's progress 07/24: no changes. Notices adderal is more effective than ritalin Plan: CV Q 15 minutes Continue Cymbalta 120 mg daily Continue Wellbutrin XL to 450 mg daily Continue Abilify 5 mg daily Will seek together collateral Reason for continued inpatient stay Substantial Risk for: harm to self and rapid decompensation Time Spent With Patient Time: Total time managing care of this patient today ____ minutes.
[2024-07-24] MEDS: Dextroamphetamine/Amphetamine XR 10 MG CAP.ER.24H 30 MG PO (08:50)
[2024-07-24] MEDS: ARIPiprazole 5 MG TABLET PO (08:50)
[2024-07-24] MEDS: buPROPion HCl XL 150 MG TAB.ER.24H 450 MG PO (08:50)
[2024-07-24] MEDS: DULoxetine HCl 60 MG CAPSULE.DR 120 MG PO (08:50)
[2024-07-24] MEDS: NORETHINDRONE ACETATE PO (08:51)
[2024-07-24] MEDS: ETHINYL ESTRADIOL PO (08:51)
[2024-07-24 19:45] VITALS: BP 125/89; PULSE 117; RESP 16; TEMP 36.4; O2SAT 100
[2024-07-24] MEDS: cloNIDine HCL 0.1 MG TABLET PO (21:09)
[2024-07-24] MEDS: traZODone HCL 100 MG TABLET PO (21:09)
[2024-07-24] MEDS: traZODone HCL 50 MG TABLET PO (21:10)
[2024-07-25 07:50] VITALS: BP 109/62; PULSE 98; RESP 18; TEMP 36.4; O2SAT 97
[2024-07-25] MEDS: buPROPion HCl XL 150 MG TAB.ER.24H 450 MG PO (08:13)
[2024-07-25] MEDS: DULoxetine HCl 60 MG CAPSULE.DR 120 MG PO (08:14)
[2024-07-25] MEDS: Dextroamphetamine/Amphetamine XR 10 MG CAP.ER.24H 30 MG PO (08:15)
[2024-07-25] MEDS: ARIPiprazole 5 MG TABLET PO (08:16)
[2024-07-25] MEDS: NORETHINDRONE ACETATE PO (08:28)
[2024-07-25] MEDS: ETHINYL ESTRADIOL PO (08:28)
--- NOTE | 2024-07-25 11:19 | HO.PSYCHPN ---
Subjective Subjective Date of Service: 07/25/24 Reason For Visit: Major depressive disorder, recurrent, moderate Interim History: Met with patient; discussed with team. Sleep improving. Feeling less depressed. Positive around family visiting. Attended our group. Still reading in room. No med concerns. Medication Compliance: Yes Side effects from medications: No Attending Groups: Yes Review of Systems Acute medical concerns: No Review of Systems Review of Systems Unremarkable Mental Status Exam Mental Status Exam Narrative: Pt is alert and oriented; behavior is cooperative, friendly and calm; patient is not in distress; dressed in casual attire with adequate hygiene; mood is described as better and affect congruent, eye contact appropriate; Speech is with a latent pause however otherwise normal rate, volume and prosody; no psychomotor agitation/retardation present; thought process is organized and goal directed; Thought content is on tx and pertinent to relevant topics and without any delusional content, paranoid ideations or grandiosity; denies any SI/HI. Denies AVH. Patients insight and judgment improving Diagnostics Vital Signs (24Hr): Vital Signs - 24 hr 07/24/24 19:45 07/25/24 07:50 Temperature 97.6 F 97.5 F Pulse Rate 117 H 98 Respiratory Rate 16 18 Blood Pressure 125/89 109/62 Pulse Oximetry 100 97 Oxygen Delivery Method Room Air Room Air BMI result Body Mass Index 28.1 Labs 07/22/24 09:30 Medications Medications Current Medications Acetaminophen (Acetaminophen 325 Mg Tablet) 650 mg PO Q6H PRN PRN Reason: Headache/Pain Mild Scale (1-3) Al Hydroxide/Mg Hydroxide (Magnesium Hydrox/Alum Hydrox 30 Ml Oral.Susp) 30 ml PO Q6H PRN PRN Reason: Heartburn/Nausea Amphetamine/Dextroamphetamine (Dextroamphetamine/Amphetamine Xr 10 Mg Cap.Er.24h) 30 mg PO DAILY [facility] Last Admin: 07/25/24 08:15 Dose: 30 mg Aripiprazole (Aripiprazole 5 Mg Tablet) 5 mg PO DAILY [facility] Last Admin: 07/25/24 08:16 Dose: 5 mg Bupropion HCl (Bupropion Hcl Xl 150 Mg Tab.Er.24h) 450 mg PO DAILY [facility] Last Admin: 07/25/24 08:13 Dose: 450 mg Clonidine HCl (Clonidine Hcl 0.1 Mg Tablet) 0.1 mg PO BEDTIME [facility]; Protocol Last Admin: 07/24/24 21:09 Dose: 0.1 mg Duloxetine HCl (Duloxetine Hcl 60 Mg Capsule.Dr) 120 mg PO DAILY [facility] Last Admin: 07/25/24 08:14 Dose: 120 mg Hydroxyzine HCl (Hydroxyzine Hcl 25 Mg Tablet) 25 mg PO Q6H PRN PRN Reason: mild Anxiety Magnesium Hydroxide (Milk Of Magnesia 30 Ml Oral.Susp) 30 ml PO DAILY PRN PRN Reason: Constipation Nicotine Polacrilex (Nicotine Polacrilex 2 Mg Gum) 4 mg BUCCAL Q2H PRN PRN Reason: Nicotine Cravings Pt Owned Med ( Fyavolv [ Norethindrone Acetate/Ethinyl Estradiol] 1mg/5mcg Tablets) 1 each PO DAILY [facility] Last Admin: 07/25/24 08:28 Dose: 1 each Trazodone HCl (Trazodone Hcl 50 Mg Tablet) 50 mg PO BEDTIME MRX1 PRN PRN Reason: Insomnia Last Admin: 07/24/24 21:10 Dose: 50 mg Trazodone HCl (Trazodone Hcl 100 Mg Tablet) 100 mg PO BEDTIME [facility] Last Admin: 07/24/24 21:09 Dose: 100 mg Allergies Allergies Allergy/AdvReac Type Severity Reaction Status Date / Time Sulfa (Sulfonamide Allergy Unknown Verified 07/21/24 20:23 Antibiotics) Assessment & Plan Assessment & Plan (1) MDD (major depressive disorder), recurrent severe, without psychosis: Status: Acute Code(s): F33.2 - Major depressive disorder, recurrent severe without psychotic features (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 Patient reports that on Cymbalta 120 mg her depression was a little improved and last summer she was doing overall okay, enjoying working at [employer] in [place]. Got back this fall, at home by herself, depression set back in but it ebbed some. Around late April depression worsened, with seasonal change and the approaching 1 year anniversary of her fathers this June. Patient mostly staying at home by herself throughout the day. With worsening depression, pt developed diminished interest,concentration, appetite low energy, increased guilty feelings, and trouble sleeping; chronically she'll have intermittent passive wish however, these thoughts intensified. Due to depression, started missing Cymbalta doses about 3x week over last 2 weeks This past week, she had an increase in self-deprecating thoughts, that she's a bad person. She tried to distract herself but became overwhelmed with unrelenting thoughts that she does not deserve to be here and made sudden decision to take an overdose, left a note from mom and took overdose of Clonidine; she immediately called 911. In hindsight she does not think she wanted to be forever, and more just wanted the intrusive thoughts to stop. Patient currently not suicidal but remains very depressed and open to medication management. Denies history of manic type episodes or behaviors; no drug use; minimal alcohol intake; no overt trauma history Formulation/clinical reasoning: Patient has chronic depression and anxiety and prevents with severe depression and clear psychomotor retardation. Also has intrusive thoughts which seem to be self-deprecating thoughts. Will seek to better rule out OCD; need to further assess if any AH. Patient on 3 medications for depression, the combination only being partially helpful. Seems that Abilify was started before Wellbutrin maxed out. Equities Analyst discussed risks/side effects of medication regimen including risks of antipsychotic/Abilify and also the possibility that with increased Wellbutrin, she may not need Abilify, all of which patient understands. However she wants to remain on Abilify however since she thought it was helpful but agrees to increasing Wellbutrin; will leave Cymbalta since patient found it partially helpful. -history of Nash syndrome which patient cites says something in which has been difficult to accept and a part of her ongoing chronic depression -has therapist however it is clearly not a fit; consistent helpful therapy very likely strong missing component Hospital course: 07/23 Patient reports that she is feeling a little better and has a noticeably brighter affect. She is not sure why she is feeling better, did sleep well enough last night. Patient realized after talking with her mom that she is actually on Wellbutrin 450 mg. Discussed how patient is doing better despite the fact that she has been on lower dose than usual and that perhaps it has been the social interaction of the milieu that has helped her mood increase. Patient started asking about possible discharge -discussed what appears to be internal preoccupation; patient says her speech latency is just due to thinking through what she wants to say and denies any AH -will continue to monitor patient's progress 07/24: no changes. Notices adderal is more effective than ritalin 07/25: no changes Plan: CV Q 15 minutes Continue Cymbalta 120 mg daily Continue Wellbutrin XL to 450 mg daily Continue Abilify 5 mg daily Will seek together collateral Reason for continued inpatient stay Substantial Risk for: harm to self and inability to function Time Spent With Patient Time: Total time managing care of this patient today ____ minutes.
[2024-07-25 20:00] VITALS: BP 137/90; PULSE 114; RESP 16; TEMP 36.7; O2SAT 100
[2024-07-25 21:27] VITALS: BP 137/90
[2024-07-25] MEDS: traZODone HCL 50 MG TABLET PO (21:27)
[2024-07-25] MEDS: cloNIDine HCL 0.1 MG TABLET PO (21:27)
[2024-07-25] MEDS: traZODone HCL 100 MG TABLET PO (21:27)
[2024-07-26 07:42] VITALS: BP 110/57; PULSE 93; RESP 18; TEMP 37; O2SAT 100
[2024-07-26] MEDS: DULoxetine HCl 60 MG CAPSULE.DR 120 MG PO (07:57)
[2024-07-26] MEDS: Dextroamphetamine/Amphetamine XR 10 MG CAP.ER.24H 30 MG PO (07:57)
[2024-07-26] MEDS: ARIPiprazole 5 MG TABLET PO (07:58)
[2024-07-26] MEDS: ETHINYL ESTRADIOL PO (07:58)
[2024-07-26] MEDS: buPROPion HCl XL 150 MG TAB.ER.24H 450 MG PO (07:58)
[2024-07-26] MEDS: NORETHINDRONE ACETATE PO (07:58)
[2024-07-26] MEDS: Milk of Magnesia 30 ML ORAL.SUSP PO (08:14)
--- NOTE | 2024-07-26 09:42 | HO.PSYCHPN ---
Subjective Subjective Date of Service: 07/26/24 Reason For Visit: Major depressive disorder, recurrent, moderate Interim History: Met with patient; discussed with team Patient says that her mood is better and she is feeling much more stable.... She says she still gets perioids of depressive moments that last about an hour, triggered by some negative thought however once she realizes that she can get herself out of it. Discussed her speech latency and her struggle intrusive thoughts. Patient says that if she watches a pest control worker shows she will start to ask herself if she is a sociopath.. She will worry about it for little while until she questions herself and realizes it is not true; it remains resolved until she watches another pest control worker show. No obvious compulsions. Discussed medication management and she agrees to start clomipramine and make Abilify a p.r.n.. Also discussed how Patient will talks to herself sometimes to help soothe herself, repeating things she heard her mother say years ago; help normalize this for patient. Diagnostics Vital Signs (24Hr): Vital Signs - 24 hr 07/25/24 20:00 07/25/24 21:27 07/26/24 07:42 Temperature 98.1 F 98.6 F Pulse Rate 114 H 93 Respiratory Rate 16 18 Blood Pressure 137/90 H 137/90 H 110/57 L Pulse Oximetry 100 100 Oxygen Delivery Method Room Air Room Air BMI result Body Mass Index 28.1 Labs 07/22/24 09:30 Medications Medications Current Medications Acetaminophen (Acetaminophen 325 Mg Tablet) 650 mg PO Q6H PRN PRN Reason: Headache/Pain Mild Scale (1-3) Al Hydroxide/Mg Hydroxide (Magnesium Hydrox/Alum Hydrox 30 Ml Oral.Susp) 30 ml PO Q6H PRN PRN Reason: Heartburn/Nausea Amphetamine/Dextroamphetamine (Dextroamphetamine/Amphetamine Xr 10 Mg Cap.Er.24h) 30 mg PO DAILY [facility] Last Admin: 07/26/24 07:57 Dose: 30 mg Aripiprazole (Aripiprazole 5 Mg Tablet) 5 mg PO DAILY [facility] Last Admin: 07/26/24 07:58 Dose: 5 mg Bupropion HCl (Bupropion Hcl Xl 150 Mg Tab.Er.24h) 450 mg PO DAILY [facility] Last Admin: 07/26/24 07:58 Dose: 450 mg Clonidine HCl (Clonidine Hcl 0.1 Mg Tablet) 0.1 mg PO BEDTIME [facility]; Protocol Last Admin: 07/25/24 21:27 Dose: 0.1 mg Duloxetine HCl (Duloxetine Hcl 60 Mg Capsule.Dr) 120 mg PO DAILY [facility] Last Admin: 07/26/24 07:57 Dose: 120 mg Hydroxyzine HCl (Hydroxyzine Hcl 25 Mg Tablet) 25 mg PO Q6H PRN PRN Reason: mild Anxiety Magnesium Hydroxide (Milk Of Magnesia 30 Ml Oral.Susp) 30 ml PO DAILY PRN PRN Reason: Constipation Last Admin: 07/26/24 08:14 Dose: 30 ml Nicotine Polacrilex (Nicotine Polacrilex 2 Mg Gum) 4 mg BUCCAL Q2H PRN PRN Reason: Nicotine Cravings Pt Owned Med ( Fyavolv [ Norethindrone Acetate/Ethinyl Estradiol] 1mg/5mcg Tablets) 1 each PO DAILY [facility] Last Admin: 07/26/24 07:58 Dose: 1 each Trazodone HCl (Trazodone Hcl 50 Mg Tablet) 50 mg PO BEDTIME [facility]1 PRN PRN Reason: Insomnia Last Admin: 07/25/24 21:27 Dose: 50 mg Trazodone HCl (Trazodone Hcl 100 Mg Tablet) 100 mg PO BEDTIME [facility] Last Admin: 07/25/24 21:27 Dose: 100 mg Allergies Allergies Allergy/AdvReac Type Severity Reaction Status Date / Time Sulfa (Sulfonamide Allergy Unknown Verified 07/21/24 20:23 Antibiotics) Assessment & Plan Assessment & Plan (1) MDD (major depressive disorder), recurrent severe, without psychosis: Status: Acute Code(s): F33.2 - Major depressive disorder, recurrent severe without psychotic features (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 Patient reports that on Cymbalta 120 mg her depression was a little improved and last summer she was doing overall okay, enjoying working at [employer] in [place]. Got back this fall, at home by herself, depression set back in but it ebbed some. Around late April depression worsened, with seasonal change and the approaching 1 year anniversary of her fathers this June. Patient mostly staying at home by herself throughout the day. With worsening depression, pt developed diminished interest,concentration, appetite low energy, increased guilty feelings, and trouble sleeping; chronically she'll have intermittent passive wish however, these thoughts intensified. Due to depression, started missing Cymbalta doses about 3x week over last 2 weeks This past week, she had an increase in self-deprecating thoughts, that she's a bad person. She tried to distract herself but became overwhelmed with unrelenting thoughts that she does not deserve to be here and made sudden decision to take an overdose, left a note from mom and took overdose of Clonidine; she immediately called 911. In hindsight she does not think she wanted to be forever, and more just wanted the intrusive thoughts to stop. Patient currently not suicidal but remains very depressed and open to medication management. Denies history of manic type episodes or behaviors; no drug use; minimal alcohol intake; no overt trauma history Formulation/clinical reasoning: Patient has chronic depression and anxiety and prevents with severe depression and clear psychomotor retardation. Also has intrusive thoughts which seem to be self-deprecating thoughts. Will seek to better rule out OCD; need to further assess if any AH. Patient on 3 medications for depression, the combination only being partially helpful. Seems that Abilify was started before Wellbutrin maxed out. Senior Solutions Engineer discussed risks/side effects of medication regimen including risks of antipsychotic/Abilify and also the possibility that with increased Wellbutrin, she may not need Abilify, all of which patient understands. However she wants to remain on Abilify however since she thought it was helpful but agrees to increasing Wellbutrin; will leave Cymbalta since patient found it partially helpful. -history of Nash syndrome which patient cites says something in which has been difficult to accept and a part of her ongoing chronic depression -has therapist however it is clearly not a fit; consistent helpful therapy very likely strong missing component Hospital course: 07/23 Patient reports that she is feeling a little better and has a noticeably brighter affect. She is not sure why she is feeling better, did sleep well enough last night. Patient realized after talking with her mom that she is actually on Wellbutrin 450 mg. Discussed how patient is doing better despite the fact that she has been on lower dose than usual and that perhaps it has been the social interaction of the milieu that has helped her mood increase. Patient started asking about possible discharge -discussed what appears to be internal preoccupation; patient says her speech latency is just due to thinking through what she wants to say and denies any AH -will continue to monitor patient's progress 07/24: no changes. Notices adderal is more effective than ritalin 07/26 Patient says that her mood is better and she is feeling much more stable.... She says she still gets perioids of depressive moments that last about an hour, triggered by some negative thought however once she realizes that she can get herself out of it. Discussed her speech latency and her struggle intrusive thoughts. Patient says that if she watches a pest control worker shows she will start to ask herself if she is a sociopath.. She will worry about it for little while until she questions herself and realizes it is not true; it remains resolved until she watches another pest control worker show. No obvious compulsions. Discussed medication management and she agrees to start clomipramine and make Abilify a p.r.n.. Also discussed how Patient will talks to herself sometimes to help soothe herself, repeating things she heard her mother say years ago; help normalize this for patient. -no SI; future oriented; talking about ways she can keep herself engaged socially which she finds has been the wilson to treating depression Plan: CV Q 15 minutes Start clomipramine 25mg qhs Continue Cymbalta 120 mg daily Continue Wellbutrin XL to 450 mg daily [facility] TO prn Abilify 5 mg daily; open clomipramine can replace this Will seek together collateral Patient educated on: diagnosis, medication risk/benefits and therapeutic strategies Informed Consent: understands Reason for continued inpatient stay Substantial Risk for: stable for discharge and rapid decompensation Time Spent With Patient Time: Total time managing care of this patient today ____ minutes.
[2024-07-26 20:00] VITALS: BP 122/87; PULSE 107; TEMP 36.4; O2SAT 100
[2024-07-26 21:12] VITALS: BP 122/87
[2024-07-26] MEDS: traZODone HCL 100 MG TABLET PO (21:12)
[2024-07-26] MEDS: clomiPRAMINE HCl 25 MG CAPSULE PO (21:12)
[2024-07-26] MEDS: cloNIDine HCL 0.1 MG TABLET PO (21:12)
--- NOTE | 2024-07-27 00:29 | PC.NURSE ---
Patient filled out a 3 day notice this evening at approximately 2029; this will be up on , 07/29/24.
[2024-07-27 08:00] VITALS: BP 99/66; PULSE 96; RESP 18; TEMP 36.7; O2SAT 97
[2024-07-27] MEDS: DULoxetine HCl 60 MG CAPSULE.DR 120 MG PO (08:07)
[2024-07-27] MEDS: Dextroamphetamine/Amphetamine XR 10 MG CAP.ER.24H 30 MG PO (08:07)
[2024-07-27] MEDS: buPROPion HCl XL 150 MG TAB.ER.24H 450 MG PO (08:07)
[2024-07-27] MEDS: NORETHINDRONE ACETATE PO (08:09)
[2024-07-27] MEDS: ETHINYL ESTRADIOL PO (08:09)
--- NOTE | 2024-07-27 09:37 | P.PNPSI_ITS ---
Subjective Subjective Date of Service: 07/27/24 Reason For Visit: Major depressive disorder, recurrent, moderate Interim History: met with patient; discussed with team; family meeting with patients sister pt reports doing better; discussed in detail however intrusive thoughts with sisterbritni Tamayo's input. Pt will often have intrusive thoughts that interfere with life functioning. One example is when patient will be vacuuming the room and every few minutes she will stop vacuuming, close her eyes and be as if frozen for 30 seconds...this was addressed at her job as well as she was falling behind due to same. Patient shares that frequently it is an upsetting memory from high school that will intrude upon distracts her. She is aware the whole time and can still hear things and is aware of her surroundings. She says she is often embarrassed to talk about it which is why she has not really shared much about this with her therapist. Understands that this is necessary as well as sharing about particular high school memories that are upsetting. Patient feels good about pursuing treatment in this way. Mental Status Exam Mental Status Exam Narrative: Pt is alert and oriented; behavior is cooperative, friendly and calm; patient is not in distress; dressed in casual attire with adequate hygiene; mood is described as good and affect congruent, brighter; more calm. eye contact appropriate; Speech is with intermittent latent pauses which is baseline; otherwise normal rate, volume and prosody; no psychomotor agitation/retardation present; thought process is organized and goal directed; Thought content is on tx and pertinent to relevant topics and without any delusional content, paranoid ideations or grandiosity; denies any SI/HI. Denies AVH. Patients insight and judgment fair and adequate Diagnostics Vital Signs (24Hr): Vital Signs - 24 hr 07/26/24 20:00 07/26/24 21:12 07/27/24 08:00 Temperature 97.6 F 98.0 F Pulse Rate 107 H 96 Respiratory Rate 18 Blood Pressure 122/87 122/87 99/66 Pulse Oximetry 100 97 Oxygen Delivery Method Room Air Room Air BMI result Body Mass Index 28.1 Labs 07/22/24 09:30 Labs: Laboratory Results - last 48 hr 07/22/24 09:30 WBC 6.5 RBC 4.52 Hgb 14.3 Hct 41.1 MCV 90.9 MCH 31.6 MCHC 34.8 RDW 11.4 Plt Count 252 MPV 10.6 Immature Gran % (Auto) 0.5 H Neut % (Auto) 54.1 Lymph % (Auto) 36.1 [place] % (Auto) 6.9 Eos % (Auto) 2.1 Baso % (Auto) 0.3 Lymph # (Auto) 2.4 [place] # (Auto) 0.5 Eos # (Auto) 0.1 Baso # (Auto) 0.0 Abs Immat Gran (auto) 0.03 Absolute Neuts (auto) 3.5 Absolute Nucleated RBC 0.000 Nucleated RBC % (auto) 0.0 Estimat Average Glucose 97 Hemoglobin A1c % 5.0 Total Bilirubin 0.4 Direct Bilirubin 0.1 AST 25 ALT 13 Alkaline Phosphatase 61 Total Protein 6.5 Albumin 4.0 Triglycerides 134 Cholesterol 190 LDL Cholesterol, Calc 106 H HDL Cholesterol 58 Vitamin B12 212 Folate 7.3 TSH 2.20 Free T4 1.17 Medications Medications Current Medications Acetaminophen (Acetaminophen 325 Mg Tablet) 650 mg PO Q6H PRN PRN Reason: Headache/Pain Mild Scale (1-3) Al Hydroxide/Mg Hydroxide (Magnesium Hydrox/Alum Hydrox 30 Ml Oral.Susp) 30 ml PO Q6H PRN PRN Reason: Heartburn/Nausea Amphetamine/Dextroamphetamine (Dextroamphetamine/Amphetamine Xr 10 Mg Cap.Er.24h) 30 mg PO DAILY [facility] Last Admin: 07/27/24 08:07 Dose: 30 mg Aripiprazole (Aripiprazole 5 Mg Tablet) 5 mg PO DAILY PRN PRN Reason: depression/agitation Bupropion HCl (Bupropion Hcl Xl 150 Mg Tab.Er.24h) 450 mg PO DAILY [facility] Last Admin: 07/27/24 08:07 Dose: 450 mg Clomipramine HCl (Clomipramine Hcl 25 Mg Capsule) 25 mg PO BEDTIME [facility] Last Admin: 07/26/24 21:12 Dose: 25 mg Clonidine HCl (Clonidine Hcl 0.1 Mg Tablet) 0.1 mg PO BEDTIME [facility]; Protocol Last Admin: 07/26/24 21:12 Dose: 0.1 mg Duloxetine HCl (Duloxetine Hcl 60 Mg Capsule.Dr) 120 mg PO DAILY [facility] Last Admin: 07/27/24 08:07 Dose: 120 mg Hydroxyzine HCl (Hydroxyzine Hcl 25 Mg Tablet) 25 mg PO Q6H PRN PRN Reason: mild Anxiety Magnesium Hydroxide (Milk Of Magnesia 30 Ml Oral.Susp) 30 ml PO DAILY PRN PRN Reason: Constipation Last Admin: 07/26/24 08:14 Dose: 30 ml Nicotine Polacrilex (Nicotine Polacrilex 2 Mg Gum) 4 mg BUCCAL Q2H PRN PRN Reason: Nicotine Cravings Pt Owned Med ( Fyavolv [ Norethindrone Acetate/Ethinyl Estradiol] 1mg/5mcg Tablets) 1 each PO DAILY [facility] Last Admin: 07/27/24 08:09 Dose: 1 each Trazodone HCl (Trazodone Hcl 50 Mg Tablet) 50 mg PO BEDTIME MRX1 PRN PRN Reason: Insomnia Last Admin: 07/25/24 21:27 Dose: 50 mg Trazodone HCl (Trazodone Hcl 100 Mg Tablet) 100 mg PO BEDTIME [facility] Last Admin: 07/26/24 21:12 Dose: 100 mg Allergies Allergies Allergy/AdvReac Type Severity Reaction Status Date / Time Sulfa (Sulfonamide Allergy Unknown Verified 07/21/24 20:23 Antibiotics) Assessment & Plan Assessment & Plan (1) MDD (major depressive disorder), recurrent severe, without psychosis: Status: Acute Code(s): F33.2 - Major depressive disorder, recurrent severe without psychotic features (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 Patient reports that on Cymbalta 120 mg her depression was a little improved and last summer she was doing overall okay, enjoying working at [employer] in [place]. Got back this fall, at home by herself, depression set back in but it ebbed some. Around late April depression worsened, with seasonal change and the approaching 1 year anniversary of her fathers this June. Patient mostly staying at home by herself throughout the day. With worsening depression, pt developed diminished interest,concentration, appetite low energy, increased guilty feelings, and trouble sleeping; chronically she'll have intermittent passive wish however, these thoughts intensified. Due to depression, started missing Cymbalta doses about 3x week over last 2 weeks This past week, she had an increase in self-deprecating thoughts, that she's a bad person. She tried to distract herself but became overwhelmed with unrelenting thoughts that she does not deserve to be here and made sudden decision to take an overdose, left a note from mom and took overdose of Clonidine; she immediately called 911. In hindsight she does not think she wanted to be forever, and more just wanted the intrusive thoughts to stop. Patient currently not suicidal but remains very depressed and open to medication management. Denies history of manic type episodes or behaviors; no drug use; minimal alcohol intake; no overt trauma history Formulation/clinical reasoning: Patient has chronic depression and anxiety and prevents with severe depression and clear psychomotor retardation. Also has intrusive thoughts which seem to be self-deprecating thoughts. Will seek to better rule out OCD; need to further assess if any AH. Patient on 3 medications for depression, the combination only being partially helpful. Seems that Abilify was started before Wellbutrin maxed out. Child Psychology Teacher discussed risks/side effects of medication regimen including risks of antipsychotic/Abilify and also the possibility that with increased Wellbutrin, she may not need Abilify, all of which patient understands. However she wants to remain on Abilify however since she thought it was helpful but agrees to increasing Wellbutrin; will leave Cymbalta since patient found it partially helpful. -history of Nash syndrome which patient cites says something in which has been difficult to accept and a part of her ongoing chronic depression -has therapist however it is clearly not a fit; consistent helpful therapy very likely strong missing component Hospital course: 07/23 Patient reports that she is feeling a little better and has a noticeably brighter affect. She is not sure why she is feeling better, did sleep well enough last night. Patient realized after talking with her mom that she is actually on Wellbutrin 450 mg. Discussed how patient is doing better despite the fact that she has been on lower dose than usual and that perhaps it has been the social interaction of the milieu that has helped her mood increase. Patient started asking about possible discharge -discussed what appears to be internal preoccupation; patient says her speech latency is just due to thinking through what she wants to say and denies any AH -will continue to monitor patient's progress 07/24: no changes. Notices adderal is more effective than ritalin 07/26 Patient says that her mood is better and she is feeling much more stable.... She says she still gets perioids of depressive moments that last about an hour, triggered by some negative thought however once she realizes that she can get herself out of it. Discussed her speech latency and her struggle intrusive thoughts. Patient says that if she watches a [employer] shows she will start to ask herself if she is a sociopath.. She will worry about it for little while until she questions herself and realizes it is not true; it remains resolved until she watches another [employer] show. No obvious compulsions. Discussed medication management and she agrees to start clomipramine and make Abilify a p.r.n.. Also discussed how Patient will talks to herself sometimes to help soothe herself, repeating things she heard her mother say years ago; help normalize this for patient. -no SI; future oriented; talking about ways she can keep herself engaged socially which she finds has been the wilson to treating depression 07/27 pt reports doing better; discussed in detail however intrusive thoughts with sisterbritni Tamayo's input. Pt will often have intrusive thoughts that interfere with life functioning. One example is when patient will be vacuuming the room and every few minutes she will stop vacuuming, close her eyes and be as if frozen for 30 seconds...this was addressed at her job as well as she was falling behind due to same. Patient shares that frequently it is an upsetting memory from high school that will intrude upon distracts her. She is aware the whole time and can still hear things and is aware of her surroundings. She says she is often embarrassed to talk about it which is why she has not really shared much about this with her therapist. Understands that this is necessary as well as sharing about particular high school memories that are upsetting. Patient feels good about pursuing treatment in this way. -increasing clomipramine to 50 mg; will likely continue to titrate -continued Cymbalta and Wellbutrin since patient reports these have helped her mood; will defer to outpatient provider to see how clomipramine does and whether not it can replace 1 of these 2 medications -patient will remain on the unit for further stabilization and possible titration of clomipramine; otherwise she is in good behavioral and impulse control, good mood, future oriented and okay for discharge. Plan: Three day Q 15 minutes Increase to clomipramine 50mg qhs Continue Cymbalta 120 mg daily Continue Wellbutrin XL to 450 mg daily ChangE TO prn Abilify 5 mg daily; open clomipramine can replace this Will seek together collateral Patient educated on: diagnosis, medication risk/benefits and therapeutic strategies Informed Consent: understands Reason for continued inpatient stay Substantial Risk for: stable for discharge Time Spent With Patient Time: Total time managing care of this patient today ____ minutes.
[2024-07-27 20:00] VITALS: BP 124/88; PULSE 101; TEMP 36.9; O2SAT 99
[2024-07-27 21:00] VITALS: BP 124/88
[2024-07-27] MEDS: clomiPRAMINE HCl 25 MG CAPSULE 50 MG PO (21:00)
[2024-07-27] MEDS: traZODone HCL 100 MG TABLET PO (21:00)
[2024-07-27] MEDS: cloNIDine HCL 0.1 MG TABLET PO (21:00)
[2024-07-28 08:00] VITALS: BP 112/68; PULSE 107; RESP 18; TEMP 36.4; O2SAT 98
[2024-07-28] MEDS: DULoxetine HCl 60 MG CAPSULE.DR 120 MG PO (08:16)
[2024-07-28] MEDS: buPROPion HCl XL 150 MG TAB.ER.24H 450 MG PO (08:16)
[2024-07-28] MEDS: Dextroamphetamine/Amphetamine XR 10 MG CAP.ER.24H 30 MG PO (08:16)
[2024-07-28] MEDS: ETHINYL ESTRADIOL PO (08:16)
[2024-07-28] MEDS: NORETHINDRONE ACETATE PO (08:16)
--- NOTE | 2024-07-28 13:42 | P.PNPSI_ITS ---
Subjective Subjective Date of Service: 07/28/24 Reason For Visit: Major depressive disorder, recurrent, moderate Interim History: Active on unit, attending groups. Pt reports she is feeling a lot better than when I got here because I'm spending time around people and not alone . Pt reports she plans on attending PHP after discharge;social science manager aware and putting in referral. 3 day up on 07/29/24; plan to discharge home. Pt reports she plans on following up with her outpatient providers. denies SI/HI/VH/AH. Medication Compliance: Yes Side effects from medications: No Attending Groups: Yes Mental Status Exam Mental Status Exam Narrative: Pt is alert and oriented; behavior is cooperative and calm; dressed in casual attire with adequate hygiene; mood is described as good ; eye contact appropriate; Speech is with intermittent latent pauses which is baseline; otherwise normal rate, volume and prosody; thought process is organized; Thought content is on tx; denies SI/HI/AH/VH Diagnostics Vital Signs (24Hr): Vital Signs - 24 hr 07/27/24 20:00 07/27/24 21:00 07/28/24 08:00 Temperature 98.5 F 97.6 F Pulse Rate 101 H 107 H Respiratory Rate 18 Blood Pressure 124/88 124/88 112/68 Pulse Oximetry 99 98 Oxygen Delivery Method Room Air Room Air BMI result Body Mass Index 28.1 Labs 07/22/24 09:30 Medications Medications Current Medications Acetaminophen (Acetaminophen 325 Mg Tablet) 650 mg PO Q6H PRN PRN Reason: Headache/Pain Mild Scale (1-3) Al Hydroxide/Mg Hydroxide (Magnesium Hydrox/Alum Hydrox 30 Ml Oral.Susp) 30 ml PO Q6H PRN PRN Reason: Heartburn/Nausea Amphetamine/Dextroamphetamine (Dextroamphetamine/Amphetamine Xr 10 Mg Cap.Er.24h) 30 mg PO DAILY [facility] Last Admin: 07/28/24 08:16 Dose: 30 mg Aripiprazole (Aripiprazole 5 Mg Tablet) 5 mg PO DAILY PRN PRN Reason: depression/agitation Bupropion HCl (Bupropion Hcl Xl 150 Mg Tab.Er.24h) 450 mg PO DAILY [facility] Last Admin: 07/28/24 08:16 Dose: 450 mg Clomipramine HCl (Clomipramine Hcl 25 Mg Capsule) 50 mg PO BEDTIME [facility] Last Admin: 07/27/24 21:00 Dose: 50 mg Clonidine HCl (Clonidine Hcl 0.1 Mg Tablet) 0.1 mg PO BEDTIME [facility]; Protocol Last Admin: 07/27/24 21:00 Dose: 0.1 mg Duloxetine HCl (Duloxetine Hcl 60 Mg Capsule.Dr) 120 mg PO DAILY [facility] Last Admin: 07/28/24 08:16 Dose: 120 mg Hydroxyzine HCl (Hydroxyzine Hcl 25 Mg Tablet) 25 mg PO Q6H PRN PRN Reason: mild Anxiety Magnesium Hydroxide (Milk Of Magnesia 30 Ml Oral.Susp) 30 ml PO DAILY PRN PRN Reason: Constipation Last Admin: 07/26/24 08:14 Dose: 30 ml Nicotine Polacrilex (Nicotine Polacrilex 2 Mg Gum) 4 mg BUCCAL Q2H PRN PRN Reason: Nicotine Cravings Pt Owned Med ( Fyavolv [ Norethindrone Acetate/Ethinyl Estradiol] 1mg/5mcg Tablets) 1 each PO DAILY [facility] Last Admin: 07/28/24 08:16 Dose: 1 each Trazodone HCl (Trazodone Hcl 50 Mg Tablet) 50 mg PO BEDTIME MRX1 PRN PRN Reason: Insomnia Last Admin: 07/25/24 21:27 Dose: 50 mg Trazodone HCl (Trazodone Hcl 100 Mg Tablet) 100 mg PO BEDTIME [facility] Last Admin: 07/27/24 21:00 Dose: 100 mg Allergies Allergies Allergy/AdvReac Type Severity Reaction Status Date / Time Sulfa (Sulfonamide Allergy Unknown Verified 07/21/24 20:23 Antibiotics) Assessment & Plan Assessment & Plan (1) MDD (major depressive disorder), recurrent severe, without psychosis: Status: Acute Code(s): F33.2 - Major depressive disorder, recurrent severe without psychotic features (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 Patient reports that on Cymbalta 120 mg her depression was a little improved and last summer she was doing overall okay, enjoying working at [employer] in [place]. Got back this fall, at home by herself, depression set back in but it ebbed some. Around late April depression worsened, with seasonal change and the approaching 1 year anniversary of her fathers this June. Patient mostly staying at home by herself throughout the day. With worsening depression, pt developed diminished interest,concentration, appetite low energy, increased guilty feelings, and trouble sleeping; chronically she'll have intermittent passive wish however, these thoughts intensified. Due to depression, started missing Cymbalta doses about 3x week over last 2 weeks This past week, she had an increase in self-deprecating thoughts, that she's a bad person. She tried to distract herself but became overwhelmed with unrelenting thoughts that she does not deserve to be here and made sudden decision to take an overdose, left a note from mom and took overdose of Clonidine; she immediately called 911. In hindsight she does not think she wanted to be forever, and more just wanted the intrusive thoughts to stop. Patient currently not suicidal but remains very depressed and open to medication management. Denies history of manic type episodes or behaviors; no drug use; minimal alcohol intake; no overt trauma history Formulation/clinical reasoning: Patient has chronic depression and anxiety and prevents with severe depression and clear psychomotor retardation. Also has intrusive thoughts which seem to be self-deprecating thoughts. Will seek to better rule out OCD; need to further assess if any AH. Patient on 3 medications for depression, the combination only being partially helpful. Seems that Abilify was started before Wellbutrin maxed out. Track Patrol discussed risks/side effects of medication regimen including risks of antipsychotic/Abilify and also the possibility that with increased Wellbutrin, she may not need Abilify, all of which patient understands. However she wants to remain on Abilify however since she thought it was helpful but agrees to increasing Wellbutrin; will leave Cymbalta since patient found it partially helpful. -history of Nash syndrome which patient cites says something in which has been difficult to accept and a part of her ongoing chronic depression -has therapist however it is clearly not a fit; consistent helpful therapy very likely strong missing component Hospital course: 07/23 Patient reports that she is feeling a little better and has a noticeably brighter affect. She is not sure why she is feeling better, did sleep well enough last night. Patient realized after talking with her mom that she is actually on Wellbutrin 450 mg. Discussed how patient is doing better despite the fact that she has been on lower dose than usual and that perhaps it has been the social interaction of the milieu that has helped her mood increase. Patient started asking about possible discharge -discussed what appears to be internal preoccupation; patient says her speech latency is just due to thinking through what she wants to say and denies any AH -will continue to monitor patient's progress 07/24: no changes. Notices adderal is more effective than ritalin 07/26 Patient says that her mood is better and she is feeling much more stable.... She says she still gets perioids of depressive moments that last about an hour, triggered by some negative thought however once she realizes that she can get herself out of it. Discussed her speech latency and her struggle intrusive thoughts. Patient says that if she watches a director experimental [employer] shows she will start to ask herself if she is a sociopath.. She will worry about it for little while until she questions herself and realizes it is not true; it remains resolved until she watches another director experimental medicine show. No obvious compulsions. Discussed medication management and she agrees to start clomipramine and make Abilify a p.r.n.. Also discussed how Patient will talks to herself sometimes to help soothe herself, repeating things she heard her mother say years ago; help normalize this for patient. -no SI; future oriented; talking about ways she can keep herself engaged socially which she finds has been the wilson to treating depression 07/27 pt reports doing better; discussed in detail however intrusive thoughts with sisterbritni Tamayo's input. Pt will often have intrusive thoughts that interfere with life functioning. One example is when patient will be vacuuming the room and every few minutes she will stop vacuuming, close her eyes and be as if frozen for 30 seconds...this was addressed at her job as well as she was falling behind due to same. Patient shares that frequently it is an upsetting memory from high school that will intrude upon distracts her. She is aware the whole time and can still hear things and is aware of her surroundings. She says she is often embarrassed to talk about it which is why she has not really shared much about this with her therapist. Understands that this is necessary as well as sharing about particular high school memories that are upsetting. Patient feels good about pursuing treatment in this way. -increasing clomipramine to 50 mg; will likely continue to titrate -continued Cymbalta and Wellbutrin since patient reports these have helped her mood; will defer to outpatient provider to see how clomipramine does and whether not it can replace 1 of these 2 medications -patient will remain on the unit for further stabilization and possible titration of clomipramine; otherwise she is in good behavioral and impulse control, good mood, future oriented and okay for discharge. 07/28: Active on unit, attending groups. Pt reports she is feeling a lot better than when I got here because I'm spending time around people and not alone . Pt reports she plans on attending PHP after discharge;social science manager aware and putting in referral. 3 day up on 07/29/24; plan to discharge home. Pt reports she plans on following up with her outpatient providers. denies SI/HI/VH/AH. Plan: Three day Q 15 minutes Increase to clomipramine 50mg qhs Continue Cymbalta 120 mg daily Continue Wellbutrin XL to 450 mg daily ChangE TO prn Abilify 5 mg daily; open clomipramine can replace this Will seek together collateral Patient educated on: diagnosis and medication risk/benefits Reason for continued inpatient stay Substantial Risk for: stable for discharge Time Spent With Patient Time: Total time managing care of this patient today _20___ minutes.
[2024-07-28 19:53] VITALS: BP 140/94; PULSE 101; TEMP 36.8; O2SAT 98
[2024-07-28] MEDS: clomiPRAMINE HCl 25 MG CAPSULE 50 MG PO (21:22)
[2024-07-28] MEDS: cloNIDine HCL 0.1 MG TABLET PO (21:22)
[2024-07-28] MEDS: traZODone HCL 100 MG TABLET PO (21:22)
[2024-07-29 08:00] VITALS: BP 107/73; PULSE 89; RESP 16; TEMP 36.8; O2SAT 100
[2024-07-29] MEDS: ETHINYL ESTRADIOL PO (08:57)
[2024-07-29] MEDS: NORETHINDRONE ACETATE PO (08:57)
[2024-07-29] MEDS: DULoxetine HCl 60 MG CAPSULE.DR 120 MG PO (08:58)
[2024-07-29] MEDS: buPROPion HCl XL 150 MG TAB.ER.24H 450 MG PO (08:58)
[2024-07-29] MEDS: Dextroamphetamine/Amphetamine XR 10 MG CAP.ER.24H 30 MG PO (08:59)
--- NOTE | 2024-07-29 15:31 | PM.PSYDC ---
DS: Providers Provider Date of Service: 07/29/24 Date of admission: 07/21/24 19:23 Date of discharge: 07/29/24 Primary care physician: Unknown Physician Attending physician on admission: Marky Gillette Consults: 07/21/24 20:50 Consult to Hospitalist Routine Comment: Consulting Provider: [facility] Reason For Exam: OSH admission Attending physician on discharge: Ivan Murphy Discharging clinician: Genevieve Copeland DS: Diagnosis Discharge Diagnosis (1) MDD (major depressive disorder), recurrent severe, without psychosis: Status: Acute (2) Nash syndrome: Status: Acute DS: Medications Discharge Medications Home Medications: Home Medications ?Medication ?Instructions ?Recorded ?Confirmed methylphenidate HCl 36 mg 36 mg PO DAILY 07/22/24 07/22/24 tablet,extended release 24 hr Previous Rx's ?Medication ?Instructions ?Recorded Patient Own Medication 1 ea PO DAILY ##0 07/28/24 bupropion HCl 150 mg 24 hr tablet, 450 mg (3 x 150 mg) PO DAILY 7 07/28/24 extended release days #21 tabs clomipramine 50 mg capsule 50 mg PO BEDTIME 7 days #7 caps 07/28/24 clonidine HCl 0.1 mg tablet 0.1 mg PO BEDTIME 7 days #7 tabs 07/28/24 duloxetine 60 mg capsule,delayed 120 mg (2 x 60 mg) PO DAILY 7 days 07/28/24 release #14 caps trazodone 100 mg tablet 100 mg PO BEDTIME 7 days #7 tabs 07/28/24 Mental Status Exam Mental Status Exam Narrative: Pt is alert and oriented; behavior is cooperative and calm; dressed in casual attire; mood is described as good ; eye contact appropriate; Speech is with intermittent latent pauses which is baseline; otherwise normal rate, volume and prosody; thought process is organized; Thought content is on tx; denies SI/HI/AH/VH Data Data Completed and Pending Completed studies during hospitalization [Text1]: 07/22/24 09:30 WBC 6.5 RBC 4.52 Hgb 14.3 Hct 41.1 MCV 90.9 MCH 31.6 MCHC 34.8 RDW 11.4 Plt Count 252 MPV 10.6 Immature Gran % (Auto) 0.5 H Neut % (Auto) 54.1 Lymph % (Auto) 36.1 [place] % (Auto) 6.9 Eos % (Auto) 2.1 Baso % (Auto) 0.3 Lymph # (Auto) 2.4 [place] # (Auto) 0.5 Eos # (Auto) 0.1 Baso # (Auto) 0.0 Abs Immat Gran (auto) 0.03 Absolute Neuts (auto) 3.5 Absolute Nucleated RBC 0.000 Nucleated RBC % (auto) 0.0 Estimat Average Glucose 97 Hemoglobin A1c % 5.0 Total Bilirubin 0.4 Direct Bilirubin 0.1 AST 25 ALT 13 Alkaline Phosphatase 61 Total Protein 6.5 Albumin 4.0 Triglycerides 134 Cholesterol 190 LDL Cholesterol, Calc 106 H HDL Cholesterol 58 Vitamin B12 212 Folate 7.3 TSH 2.20 Free T4 1.17 DS: Summary Hospital Course Hospital Course: Pt is a 24-year-old female with history of Nash syndrome, depression anxiety, starting in middle school who self presents for worsening depression, following SI with intentional overdose. Patient reports that on Cymbalta 120 mg her depression was a little improved and last summer she was doing overall okay, enjoying working at [employer] in [place]. Got back this fall, at home by herself, depression set back in but it ebbed some. Around late April depression worsened, with seasonal change and the approaching 1 year anniversary of her fathers this June. Patient mostly staying at home by herself throughout the day. With worsening depression, pt developed diminished interest,concentration, appetite low energy, increased guilty feelings, and trouble sleeping; chronically she'll have intermittent passive wish however, these thoughts intensified. Due to depression, started missing Cymbalta doses about 3x week over last 2 weeks This past week, she had an increase in self-deprecating thoughts, that she's a bad person. She tried to distract herself but became overwhelmed with unrelenting thoughts that she does not deserve to be here and made sudden decision to take an overdose, left a note from mom and took overdose of Clonidine; she immediately called 911. In hindsight she does not think she wanted to be forever, and more just wanted the intrusive thoughts to stop. Patient currently not suicidal but remains very depressed and open to medication management. Denies history of manic type episodes or behaviors; no drug use; minimal alcohol intake; no overt trauma history Formulation/clinical reasoning: Patient has chronic depression and anxiety and prevents with severe depression and clear psychomotor retardation. Also has intrusive thoughts which seem to be self-deprecating thoughts. Will seek to better rule out OCD; need to further assess if any AH. Patient on 3 medications for depression, the combination only being partially helpful. Seems that Abilify was started before Wellbutrin maxed out. Die Maker [employer] discussed risks/side effects of medication regimen including risks of antipsychotic/Abilify and also the possibility that with increased Wellbutrin, she may not need Abilify, all of which patient understands. However she wants to remain on Abilify however since she thought it was helpful but agrees to increasing Wellbutrin; will leave Cymbalta since patient found it partially helpful. -history of Nash syndrome which patient cites says something in which has been difficult to accept and a part of her ongoing chronic depression -has therapist however it is clearly not a fit; consistent helpful therapy very likely strong missing component Plan: Three day Q 15 minutes Increase to clomipramine 50mg qhs Continue Cymbalta 120 mg daily Continue Wellbutrin XL to 450 mg daily ChangE TO prn Abilify 5 mg daily; open clomipramine can replace this Will seek together collateral Hospital course: Patient reports that she is feeling a little better and has a noticeably brighter affect. She is not sure why she is feeling better, did sleep well enough last night. Patient realized after talking with her mom that she is actually on Wellbutrin 450 mg. Discussed how patient is doing better despite the fact that she has been on lower dose than usual and that perhaps it has been the social interaction of the milieu that has helped her mood increase. Patient started asking about possible discharge -discussed what appears to be internal preoccupation; patient says her speech latency is just due to thinking through what she wants to say and denies any AH -will continue to monitor patient's progress no changes. Notices adderal is more effective than ritalin Patient says that her mood is better and she is feeling much more stable.... She says she still gets perioids of depressive moments that last about an hour, triggered by some negative thought however once she realizes that she can get herself out of it. Discussed her speech latency and her struggle intrusive thoughts. Patient says that if she watches a presidential support specialist shows she will start to ask herself if she is a sociopath.. She will worry about it for little while until she questions herself and realizes it is not true; it remains resolved until she watches another presidential support specialist show. No obvious compulsions. Discussed medication management and she agrees to start clomipramine and make Abilify a p.r.n.. Also discussed how Patient will talks to herself sometimes to help soothe herself, repeating things she heard her mother say years ago; help normalize this for patient. -no SI; future oriented; talking about ways she can keep herself engaged socially which she finds has been the wilson to treating depression pt reports doing better; discussed in detail however intrusive thoughts with sisterbritni Tamayo's input. Pt will often have intrusive thoughts that interfere with life functioning. One example is when patient will be vacuuming the room and every few minutes she will stop vacuuming, close her eyes and be as if frozen for 30 seconds...this was addressed at her job as well as she was falling behind due to same. Patient shares that frequently it is an upsetting memory from high school that will intrude upon distracts her. She is aware the whole time and can still hear things and is aware of her surroundings. She says she is often embarrassed to talk about it which is why she has not really shared much about this with her therapist. Understands that this is necessary as well as sharing about particular high school memories that are upsetting. Patient feels good about pursuing treatment in this way. -increasing clomipramine to 50 mg; will likely continue to titrate -continued Cymbalta and Wellbutrin since patient reports these have helped her mood; will defer to outpatient provider to see how clomipramine does and whether not it can replace 1 of these 2 medications -patient will remain on the unit for further stabilization and possible titration of clomipramine; otherwise she is in good behavioral and impulse control, good mood, future oriented and okay for discharge. Active on unit, attending groups. Pt reports she is feeling a lot better than when I got here because I'm spending time around people and not alone . Pt reports she plans on attending PHP after discharge;licensed master social worker aware and putting in referral. 3 day up on 07/29/24; plan to discharge home. Pt reports she plans on following up with her outpatient providers. denies SI/HI/VH/AH. Status at Discharge Cognitive/behavioral status at discharge: Patient has insight and demonstrates good judgment in terms of wanting to pursue treatment. Patient has a safety plan that includes presenting to the closest ER or calling 911 if feeling unsafe. Functional status at discharge: independent ambulation Overall status at discharge: patient is back to baseline Time Spent with Patient Time attestation: Total time managing care of this patient today __20__ minutes. Time spent: Less than 30 minutes Discharge Plan Discharge Anticipated Discharge Date/Time: 07/29/24 11:00 Patient Disposition: Home, Self-Care Discharge Diagnosis: MDD Referrals: Therapy- Geena Pate [Other] - 07/30/24 3:00 pm (Appointment will be via telehealth ) Medication Management- Danielle Gil [Other] - 08/31/24 10:30 am (Appointment is via telehealth) [facility]- Walk-in [Other] - 1 Week (Open Friday?Friday, 8am?8pm; Friday/Friday, 9am?5pm. ) [facility]'s Partial Hospitalization Program [Other] - 1 Week (Alisha will call you with your appointment date and time, if you do not hear from her in one week please call the provided number) Physician,Unknown J [Primary Care Provider] - 1 Week (Pt declined PCP follow up appt.) Discharge Medications: New trazodone 100 mg Tablet 100 mg PO BEDTIME 7 Days Qty: 7 3RF Patient Own Medication 1 ea PO DAILY Qty: 0 0RF clonidine HCl 0.1 mg Tablet 0.1 mg PO BEDTIME 7 Days Qty: 7 3RF Protocol: Hold for SBP< HOLD for SBP < : 90 bupropion HCl 150 mg Tablet Extended Release 24 Hr 450 mg PO DAILY 7 Days Qty: 21 3RF clomipramine 50 mg capsule 50 mg PO BEDTIME 7 Days Qty: 7 3RF duloxetine 60 mg Capsule,Delayed Release(Dr/Ec) 120 mg PO DAILY 7 Days Qty: 14 3RF Continued methylphenidate HCl 36 mg tablet extended release 24hr 36 mg PO DAILY Discontinued aripiprazole 5 mg tablet 5 mg PO DAILY bupropion HCl 150 mg tablet extended release 24 hr 150 mg PO DAILY duloxetine 60 mg capsule,delayed release(DR/EC) 120 mg PO DAILY trazodone 50 mg tablet 50 - 100 mg PO BEDTIME lorazepam 0.5 mg tablet 0.5 mg PO DAILY PRN (Reason: Anxiety) Discharge Orders: Discharge Order (Routine); Ordered 07/29/24 Ordered By: Genevieve Copeland Diet: Regular diet Activity on Discharge: As tolerated Stand Alone Forms: Patient Portal Discharge page, Community Support Print Language: Irish Care Plan Goals: Maintain mood and safe behaviors Take medications as prescribed Practice coping skills Continue with outpatient providers and reach out to them as needed Health Concerns: Mood stability and behaviors Plan of Treatment: Follow up with your PCP, psychiatric provider and other outpatient providers regarding above concerns Take medications as prescribed Assessment: Patient has insight and demonstrates good judgment in terms of wanting to pursue treatment. Patient has a safety plan that includes presenting to the closest ER or calling 911 if feeling unsafe. Discharge Date/Time: 07/29/24 10:50
== END 2024-07-29 10:50 | disposition home or self-care (01) | DRG 885 ==
PROVIDERS: Psychiatry & Neurology Psychiatry; Admitting Provider Psychiatry & Neurology Psychiatry; Visit Provider Psychiatry & Neurology Psychiatry
DX: F33.2 Major depressive disorder, recurrent severe without psychotic features (principal); Q96.9 Turner's syndrome, unspecified; Z63.4 Disappearance and death of family member; Z79.899 Other long term (current) drug therapy
CPT/HCPCS: 36415; 80061; 80076; 82607; 82746; 83036; 84439; 84443; 85025

== ENCOUNTER → 2024-07-21 19:23 | Outpatient (BNV) | payer OTHER, SELFPAY | PROVIDERS: Admitting Provider Psychiatry & Neurology Psychiatry; Visit Provider Physician Assistant | DX: Z00.8 Encounter for other general examination (principal) | CPT/HCPCS: 99429 ==

== ENCOUNTER → 2024-07-21 19:23 | Outpatient (BNV) | payer OTHER, SELFPAY | PROVIDERS: Admitting Provider Psychiatry & Neurology Psychiatry; Visit Provider Psychiatry & Neurology Psychiatry | DX: F33.2 Major depressive disorder, recurrent severe without psychotic features (principal); Q96.9 Turner's syndrome, unspecified | CPT/HCPCS: 90792; 99232 ==

== ENCOUNTER 2024-08-19 17:18 | Inpatient (IN) | payer OTHER, SELFPAY ==
[2024-08-19 18:22] VITALS: BMI 29.0
[2024-08-19 18:23] VITALS: BP 121/82; PULSE 100; RESP 17; TEMP 36.3; O2SAT 99
--- NOTE | 2024-08-19 18:33 | PC.ADMIT ---
Patient is a 24 year old female transferred from [facility] at 1740 on a CV for treatment of Major Depressive Disorder. Patient was admitted after a medication overdose, taking between 15-20 ibuprofen related to an increase in feelings of depression. Pt has an extensive hx of admissions r/t depression and suicidal attempts, with the most recent being last month after overdosing on clonidine. Patient is pleasant with the admission process, affect is blunted though she is pleasant, calm and cooperative. She rates current depression a 4 but denies anxiety and though she admits to the recent suicidal attempt, she denies any current thoughts of wanting to hurt herself. Patient is A&Ox3 with clear speech and organized thought process. Reports appetite and sleep are fine , tox screen negative and she is denying any other physical complaints. Skin check completed with excoriations noted to bilateral knuckles, pt reports it's from dry skin. She is placed on 15 minute checks for safety
--- OUTSIDE RECORDS SUMMARY | 2024-08-19 19:36 | XMS_ITS ---
Author Organization [facility] Address [address] [facility] [place] [address] Care Team Providers Care Protective Signal Operations Supervisor Name Role Phone Roxy Banuelos [place] [phone] REASON FOR VISIT bought Vircin Encounters Encounter Location Date Provider Diagnosis [address] [address] 05/05/2023 Roxy Banuelos Plan Of Treatment No Information Progress Notes * Bertha STUBBSDOB:[birth year] (23 yo F)Acc No.[id number]:05/05/2023 Patient:?Bertha Stubbs :2000???Age:23 Y???Sex:Female Address:[address] [place], [place] [address], [address] * true * Date:? Generated for Betyi fabricio/Adrianna/eTransmitting on:?08/19/2024 07:36 PM EST
--- OUTSIDE RECORDS SUMMARY | 2024-08-19 19:36 | XMS_ITS ---
Author Organization [facility] Address [address] [facility] [place] [address] Care Team Providers Care Quality Compliance Coordinator Name Role Phone Roxy Banuelos Unavailable [phone] TristinPretty urban Unavailable [phone] Allergies Allergen (clinical drug ingredient) Drug/Non Drug Allergy documented on EMR Reaction Allergy Type Onset Date Status Substance with sulfonamide structure and antibacterial mechanism of action (substance) Sulfa Antibiotics Unknown Drug Allergy Active REASON FOR VISIT Wart(s) Medications Medication SIG (Take, Route, Frequency, Duration) Notes Start Date End Date Status Fish Oil 1000 MG 1 capsule Orally Onc e a day for 30 day(s) Active Fyavolv 1-5 MG-MCG 1 tablet Orally Once a day for 30 day(s) Active DULoxetine HCl 60 MG 1 capsule Orally Tw ice a day Active buPROPion HCl 100 MG 1 tablet Orally Twi ce a day for 30 day(s) Active Amphetamine-Dextroamphetam ine 20 MG 1 tablet Orally Twice a day Active Abilify Active Social History Tobacco Use: Social History Observation Description Date Details (start date - stop date) Never Smoker NA - NA Tobacco Use/Smoking Question Answer Notes Are you a: nonsmoker Alcohol Screen Question Answer Notes Did you have a drink containing alcohol in the p ast year? Yes Points 0 Interpretation Negative Tobacco use other than smoking: Question Answer Notes Are you an other tobacco user? No Vital Signs Height 5 ft 3 in in 06/05/2023 Weight 145 lbs 06/05/2023 BMI 25.68 kg/m2 06/05/2023 Encounters Encounter Location Date Provider Diagnosis [facility] [address] [facility] [place] [address] 06/05/2023 Pretty Jang Right foot pain M79.671 ; Plantar wart B07.0 and Pain in left foot M79.672 Assessments Encounter Date Diagnosis (ICD Code) Assessment Notes Treatment Notes Treatment Clinical Notes Section Notes 06/05/2023 Right foot pain (ICD-10 - M79.671) 06/05/2023 Plantar wart (ICD-10 - B07.0) 06/05/2023 Pain in left foot (ICD-10 - M79.672) Plan Of Treatment Next Appt Details Follow Up: prn, Reason: Pt l eaving until November Procedure Notes * Category Sub-Category Detail Notes Wart Treatment Procedure Verrucae were de brided to pin-point bleeding margins with sterile 15 surgical blade, silver nitrate chemocautery applied, recomm. immune-boosting meds such as zinc, recomm. follow up with topical chemosurgical agents , Discussed/Rxed use of Custom Compounded anti-viral creams , use until the lesion is completely resolved Progress Notes * Bertha STUBBSDOB:[birth year] (23 yo F)Acc No.[id number]:06/05/2023 Progress Notes Patient:?Estellamanishtrice Bertha Provider:?Pretty Jang DPM :2000???Age:23 Y???Sex:Female D ate:06/05/2023 Address:[address] [place], [place] [id number] Subjective: * Chief Complaints: * ???Wart(s) * HPI: ???Skin problems:?Pt States PCP Visit: ?DATE?11/27/2022 * ROS:?General/Constitutional:?Nausea?denies, denies.?Vomiting?denies, denies.?Hunger Thirst?denies, denies.?Loss appetite?denies, denies.?Chills?denies, denies.?Fatigue?denies, denies.?Fever?denies, denies.?Night Sweats denies, denies.?Unexplained weight loss?denies, denies.?Unexplained weight gain?denies, denies.?HEENTM:?Dentures?denies, denies.?Dizziness?denies, denies.?Glasses/contacts?denies, denies.?Retinopathy?denies, denies.?Blurred/double vision?denies, denies.?TMJ?denies, denies.?Discharge/drainage?denies, denies.?Implants?denies, denies.?Sore throat?denies, denies.?Dental implants?denies, denies.?Hard of hearing ?denies, denies.?Difficulty chewing/swallowing/speaking?denies, denies.?Nose bleeds?denies, denies.?Sore mouth?denies, denies.?Respiratory:?On Oxygen?denies, denies.?Pneumonia/pleurisy?denies, denies.?Bronchitis?denies, denies.?Emphysema?denies, denies.?Coughing?denies, denies.?Cough blood?denies, denies.?Shortness of breath?denies, denies.?Wheezing?denies, denies.?Cardiovascular:?Pacemaker?denies, denies.?MVP?denies, denies.?WPW?denies, denies.?CHF?denies, denies.?Heart attack?denies, denies.?Septal defect?denies, denies.?Rapid beat?denies, denies.?Chest pain ?denies, denies.?Atrial Fib.?denies, denies.?Murmur/Palpitations?denies, denies.?Gastrointestinal:?Hemorrhoids?denies, denies.?Stomach/Abdominal pain?denies, denies.?Dark blood stool?denies, denies.?Irritable bowel ?denies, denies.?Constipation?denies, denies.?Diarrhea?denies, denies.?Hematology:?Swelling?denies, denies.?Clots?denies, denies.?Varicose Veins?denies, denies.?Bruising?denies, denies.?Bleeding problem?denies, denies.?Genitourinary:?Blood urine?denies, denies.?Frequent/Painfu/urination/bladder control?denies, denies.?Kidney stones?denies, denies.?Infection (UTI)?denies, denies.?Nephropathy?denies, denies.?sex trans dis (STD)?denies, denies.?Prostate?denies, denies.?Musculoskeletal:?Hammertoes?denies, denies.?Bunions?denies, denies.?Back Pain?denies, denies.?Muscle Cramps/ Resting?denies, denies.?Muscle cramps / walking?denies, denies.?Generalized aches and pains?denies, denies.?Weakness?denies, denies.?Integ.:?[place]?denies, denies.?Scars?denies, denies.?Corns/calluses?denies, denies.?Ingrown nails?denies, denies.?Painful nails?denies, denies.?Open Sores?denies, denies.?Rashes?denies, denies.?Neurologic:?Difficulty sleeping?denies, denies.?Brain disorder?denies, denies.?Numbness?denies, denies.?Balance trouble?denies, denies.?Confusion?denies, denies.?Fainting/blackouts?denies, denies.?Tingling?denies, denies.?Tremors?denies, denies.? * Medical History:? * Surgical History:?Ear tube P lacement 2008 * Hospitalization/Major Diagno stic Procedure:?No Hospitalization History. * Family History:?Mother: nisha kay, diagnosed with Family history of arthritis.?Father: alive.?Paternal Grand Mother: unknown, diagnosed with Diabetic - NIDDM, Unspecified essential hypertension, Family history of arthritis.?Maternal Grand Mother: unknown, diagnosed with Family history of arthritis, Diabetic - NIDDM, Unspecified essential hypertension.?Maternal Grand Father: unknown, cancer.?Paternal uncle: unknown, heart attack.? * Social History:?Tobacco Use:?Tobacco Use/Smoking?Are you a:?nonsmoker ?Tobacco use other than smoking?Are you an other tobacco user??No ???Drugs/Alcohol:?Drugs?Have you used drugs other than those for medical reasons in the past 12 months??No ?Alcohol Screen?Did you have a drink containing alcohol in the past year??Yes ?Points?0 ?Interpretation?Negative ???Miscellaneous:?Caffeine: yes, frequency:, 1-2 cups per day. ?Exercise: yes, reading, watching TV, hanging out with Friends. ?Marital status: single. ?Occupation: weeks/months/years, [employer] in [place]. * Medications:?TakingAbilify F vianney Oil 1000 MG Capsule 1 capsule Orally Once a dayFyavolv 1-5 MG-MCG Tablet 1 tablet Orally Once a dayDULoxetine HCl 60 MG Capsule Delayed Release Sprinkle 1 capsule Orally Twice a daybuPROPion HCl 100 MG Tablet 1 tablet Orally Twice a dayAmphetamine-Dextroamphetamine 20 MG Tablet 1 tablet Orally Twice a dayMedication List reviewed and reconciled with the patientTaking Lauren Taking Fish Oil 1000 MG Capsule 1 capsule Orally Once a dayTaking Fyavolv 1-5 MG-MCG Tablet 1 tablet Orally Once a dayTaking DULoxetine HCl 60 MG Capsule Delayed Release Sprinkle 1 capsule Orally Twice a dayTaking buPROPion HCl 100 MG Tablet 1 tablet Orally Twice a dayTaking Amphetamine-Dextroamphetamine 20 MG Tablet 1 tablet Orally Twice a dayMedication List reviewed and reconciled with the patient * Allergies:?Sulfa Antibiotics yes[Allergies Verified] Objective: * Vitals:?Ht: 5 ft 3 in, Wt: 1 45, BMI:25.68, Shoe size: 9. * Examination: ???Dermatologic: ?VERRUCA:?Reveals Multiple ( 4), multi-loculated , mosaic-patterned, round, raised, flat-topped, petechial bleeding papule(s), with cauliflower appearance and interruption of skin lines, with pain to lateral compression, and size estimated at 3mm diameter, plantar Forefoot, RIGHT , Reveals a Single , multi-loculated , mosaic-patterned, round, raised, flat-topped, petechial bleeding papule(s), with cauliflower appearance and interruption of skin lines, pain to lateral compression, and size estimated at 5 mm diameter , plantar Forefoot , LEFT.? Assessment: * Assessment: 1.?Right foot pain - M79.671 ?2.?Plantar wart - B07.0 (Primary)?3.?Pain in left foot - M79.672? Plan: * Treatment: * Procedures:?Wart Treatment:?Procedure?Verrucae were debrided to pin-point bleeding margins with sterile 15 surgical blade, silver nitrate chemocautery applied, recomm. immune-boosting meds such as zinc, recomm. follow up with topical chemosurgical agents , Discussed/Rxed use of Custom Compounded anti-viral creams , use?until the lesion is completely resolved.? * Procedure Codes:?65578 Wart Destruction, 1-14, Modifiers: XS * Follow Up:?prn (Reason: Pt l eaving until November) * Images: * Sign off status: Completed true * Provider:?Pretty Jang, SATNAM Date:? Generated for Randolph regalado/Adrianna/Apurva on:?08/19/2024 07:36 PM EST History and Physical Notes * HPI (History of Present Illness) Category Sub-Category Detail Notes Category Not es Skin problems Pt States PCP Visit: DATE: 11/27/2022 Examination Category Sub-Category Detail Notes Category Not es Dermatologic VERRUCA: Reveals Multiple ( 4), multi-loculated , mosaic-patterned, round, raised, flat-topped, petechial bleeding papule(s), with cauliflower appearance and interruption of skin lines, with pain to lateral compression, and size estimated at 3mm diameter, plantar Forefoot, RIGHT , Reveals a Single , multi-loculated , mosaic-patterned, round, raised, flat-topped, petechial bleeding papule(s), with cauliflower appearance and interruption of skin lines, pain to lateral compression, and size estimated at 5 mm diameter , plantar Forefoot , LEFT
--- OUTSIDE RECORDS SUMMARY | 2024-08-19 19:37 | XMS_ITS | Encounter Summary ---
Author Organization [facility] Address [address] [place] [address] Care Team Providers Care Bag Hanger Name Role Phone Physician, No Pcp Primary Care Provider Unavaila ble Reason for Visit * Reason Comments Drug Overdose ?clonidine od- took 10 pills 45min ago=intentional Encounter Details Date Type Department Care Team (Late st Contact Info) Description 07/20/2024 7:18 PM EST - 07/21/2024 7:08 PM EST Emergency [facility] Emergency [address] [place] [id number] Dallas Negrete MD [address] [address] Dank Guevara MD [address] [place] [address] Maulik Dey, DO [address] [place] [address] Major depressive disorder, recurrent episode, moderate (CMS/HCC) (Primary Dx) Discharge Disposition: Psych[facility] Social History Tobacco Use Types Packs/Day Years Used Date Smoking Tobacco: Never Assessed Comments Unknown Sex and Gender Information Value Date Recorded Sex Assigned at Female 07/20/2024 8:41 PM EST Legal Sex Female 9:48 PM EST Gender Identity Female 07/20/2024 8:41 PM EST Sexual Orientation Straight 07/20/2024 8: 41 PM EST documented as of this encounter Last Filed Vital Signs Vital Sign Reading [...] Mass Index 28.34 07/20/2024 7:23 PM EST documented in this encounter Functional Status * Are you deaf or do you have serious difficulty hearing? Answer Date of Assessment Author No 07/20/2024 8:21 PM Yolande Shaw RN * Are you blind or do you have serious difficulty seeing, even when wearing glasses? Answer Date of Assessment Author No 07/20/2024 8:21 PM Yolande Shaw RN * Do you have serious difficulty walking or climbing stairs? Answer Date of Assessment Author No 07/20/2024 8:21 PM Yolande Shaw RN * Do you have serious difficulty dressing or bathing? Answer Date of Assessment Author No 07/20/2024 8:21 PM Yolande Shaw RN * Because of a physical, mental, or emotional condition, do you have serious difficulty doing errandsalone such as visiting the doctor? Answer Date of Assessment Author No 07/20/2024 8:21 PM Yolande Shaw RN documented as of this encounter Mental Status * Because of a physical, mental, or emotional condition, do you have serious difficulty concentrating, remembering, or making decisions? (5 years old or older) Answer Entry Date Author No 07/20/2024 8:21 PM Yolande Shaw RN documented in this encounter Medications at Time of Discharge buPROPion XL (WELLBUTRIN XL) 300 mg 24 hr tablet Take 1 tablet (300 mg total) by mouth daily. 08/04/2020 DULoxetine (CYMBALTA) [address] capsule Take 2 capsules (120 mg total) by mouth daily. 06/01/2024 traZODone (DESYREL) 50 mg tablet Take 1-2 tablets (50-100 mg total) by mouth daily. 09/12/2023 ARIPiprazole (ABILIFY) 5 mg tablet Take 1 tablet (5 mg total) by mouth 1 (one) time each day. cloNIDine (CATAPRES) 0.1 mg tablet Take 1 tablet (0.1 mg total) by mouth 2 (two) times a day. DULoxetine (CYMBALTA) [address] capsule Take 2 capsules (120 mg total) by mouth 1 (one) time each day. Do not crush or chew. LORazepam (ATIVAN) 0.5 mg tablet Take 1 tablet (0.5 mg total) by mouth 1 (one) time each day. Max Daily Amount: 0.5 mg methylphenidate 36 mg ER tablet Take 1 tablet (36 mg total) by mouth 1 (one) time each day in the morning. Do not crush, chew, or split. Max Daily Amount: 36 mg norethindrone-et hinyl estradiol (FEMHRT 06/20) 1-5 mg-mcg per tablet Take 1 tablet by mouth 1 (one) time each day. buPROPion SR (WELLBUTRIN SR) 150 mg 12 hr tablet Take 1 tablet (150 mg total) by mouth 1 (one) time each day. Do not crush, chew, or split. 08/18/2024 documented as of this encounter Discharge Disposition Disposition Code Departure Means Destination [facility] documented in this encounter Progress Notes * Julian Jarquin RN - 07/21/2024 5:54 PM EST Patients mom took her personal cellphone patient is aware. * Julian Jarquin RN - 07/21/2024 5:13 PM EST Transport to picker tender helper patient at 6pm. [facility] rec completed * Julian Jarquin RN - 07/21/2024 5:10 PM EST Medications verified by Chris * Donna Isaac LCSW - 07/21/2024 2:17 PM EST BE FOUND- Patient accepted to [facility], , by Dr. Marky Pal. ETA will be determined during nurse to nurse. * Maulik Dey DO - 07/21/2024 8:30 AM EST ED Course as of 07/21/24 1501 Tue Jul 20, 2024 2147 Discussed with poison control. Observe for bradycardia. Supportive care, IVF, can tolderate low HR unless symptomatic. Monitor for SENIOR APPLICATIONS ENGINEER and resp depression. Repeat EKG in 2 hours for stability. If asymptomatic can monitor until midnight and be medically cleared. [JL] 2309 EKG shows no change in QTc. Signed out to oncoming provider. Medically cleared for crisis at 12AM [JL] Wed Jul 21, 2024 0830 Signed out to ne at shift transfer care. Intentional overdose, medically stable. Pending crisis evaluation. No overnight issues with patient or nurse. [MC] ED Course User Index [JL] Dallas Negrete MD [MC] Maulik Dey DO Clinical Impressions as of 07/21/24 1501 Major depressive disorder, recurrent episode, moderate (CMS/HCC) Transfer to Another Facility 1. Major depressive disorder, recurrent episode, moderate (CMS/HCC) Procedures * Susanne Payne RN - 07/21/2024 6:47 AM EST REPORT TO JULIAN DE LA ROSA * Susanne Payne RN - 07/21/2024 6:01 AM EST POISON CONTROL CALLED REQUESTING MOST RECENT SET OF VS, VS HAD JUST BEEN COMPLETED,VS PROVIDED TO POISON CONTROL * Susanne Payne RN - 07/21/2024 5:45 AM EST RESTING, COOPERATIVE FOR VS,REPOSITIONS AND RETURNS TO SLEEP AFTER VS * Susanne Payne RN - 07/21/2024 4:07 AM EST Pt resting on hospital bed, repositioning self for comfort, nad, rr even * Susanne Payne RN - 07/21/2024 3:00 AM EST PT REPOSITIONS IN BED INDEPENDENTLY * Susanne Payne RN - 07/21/2024 1:22 AM EST PT INDEPENDENTLY REPOSITIONING IN BED * Susanne Payne RN - 07/21/2024 1:11 AM EST AMBULATORY FROM YELLOW POD TO AQUA POD * Susanne Payne RN - 07/21/2024 12:58 AM EST ASSUMED CARE OF PT * Yenny Nash RN - 07/21/2024 12:50 AM EST Security check complete and pt wanded. Pt has stable vitals and no medical complaints. Transitionedpatient into aqua pod. IV removed. Belongings list complete, belongings placed in appropriate locker. [place] [id number] * Yenny Avilez RN - 07/20/2024 10:22 PM EST Mother at bedside, mother is a RN here in [facility]. * Yenny Avilez RN - 07/20/2024 8:35 PM EST Pt able to drink all of the charcoal, dry heaving immediately after - zofran given for nausea. At this time has not vomited anything up, states zofran helped nausea. BP noted to drop from 136/108 at 194 to 112/92 at 2031. Provider notified, no new orders will watch for additional changes in BP. Fluids running at 125 ml/hr. Pt requested this RN to call her mom, called x2 no answer left voicemail to call back. * Yenny Avilez RN - 07/20/2024 8:19 PM EST Pt drinking charcoal, tolerating at this time. BP stable. Pt scared but cooperative. * Marina Ley RN - 07/20/2024 7:21 PM EST Pt took ?clonidine pills x 10- intentional od * Dallas Negrete MD - 07/20/2024 7:16 PM EST Emergency Medicine Note Patient Name: Twyla Banks Initial Evaluation: 07/20/2024 : 2000 Patient's PCP: No primary care provider on file. Emergency Physician: Dallas Negrete MD History of Present Illness Chief Complaint: Chief Complaint Patient presents with ??? Drug Overdose ?clonidine od- took 10 pills 45min ago =intentional HPI: Is a 24-year-old female the history of chronic depression with a recently self-reported intentional overdose of clonidine approximately 10 tablets of clonidine 0.1 mg. At 6:30pm She also takes medication for depression but did not overdose on this. Denies any other drug use. Prior suicide attempts. There is a long history of depression ROS: I have performed a ROS with the pertinent positives and negatives documented in the history ofpresent illness. Previous History History reviewed. No pertinent past medical history. History reviewed. No pertinent surgical history. No family history on file. is allergic to sulfa (sulfonamide antibiotics). No current facility-administered medications on file prior to encounter. No current outpatient medications on file prior to encounter. Physical Exam ED Triage Vitals [07/20/241922] Temp Heart Rate Resp BP 36.4 ??C (97.5 ??F) 90 16 (!) 131/101 SpO2 Temp src Heart Rate Source Patient Position 100 % -- -- Sitting BP Location FiO2 (%) Left arm -- General: Well-appearing, well nourished, in no acute distress HEENT: PERRL, EOMI, external ears and nose appear unremarkable, airway is patent Neck: Supple, full range of motion, no meningismus, no JVD Chest: Clear to auscultation; no evidence of respiratory distress Circulatory: The rate and rhythm , no murmurs rubs or gallops Abdomen: Non-distended, Non-Tender Extremities: Normal ROM, No edema, ranging all extremities without difficulty Skin: Warm and dry, well-perfused , no rashes Neuro: Alert and oriented x 3. no motor or sensory deficits Psyche: Flat affect Results Labs Reviewed CBC AND DIFFERENTIAL Narrative: The following orders were created for panel order CBC and differential. Procedure Abnormality Status --------- ------ CBC auto differential[[id number]] Please view results for these tests on the individual orders. COMPREHENSIVE METABOLIC PANEL ETHANOL ACETAMINOPHEN LEVEL SALICYLATE LEVEL DRUG ABUSE SCREEN 8A PANEL, URINE BUPRENORPHINE SCREEN, URINE PHENCYCLIDINE, URINE METHADONE SCREEN, URINE CBC WITH AUTO DIFFERENTIAL Abnormal Labs Reviewed - No abnormal labs to display No orders to display I have discussed the incidental/abnormal imaging and/or lab abnormalities with the patient and haveinstructed them the need for further evaluation and workup with their primary care doctor. I have provided the patient with a paper copy of the abnormality. The laboratory results, imaging results and other diagnostic exam results were reviewed in the EMR. EKG Interpretation EKG shows a normal sinus rhythm rate of 86 bpm T wave inversion in V2 no terminal R wave in aVR QTcis 4 4 9 ms Critical Care Time None Medical Decision Making Medications - No data to display ED Course as of 07/20/242309 [facility] Jul 20, [id number] Discussed with poison control. Observe for bradycardia. Supportive care, IVF, can tolderate low HR unless symptomatic. Monitor for SENIOR APPLICATIONS ENGINEER and resp depression. Repeat EKG in 2 hours for stability. If asymptomatic can monitor until midnight and be medically cleared. [JL] 230 EKG shows no change in QTc. Signed out to oncoming provider. Medically cleared for crisis at 12AM [JL] ED Course User Index [JL] Dallas Negrete MD Procedures Procedures Diagnosis No diagnosis found. Disposition Data Unavailable ED Prescriptions None Physician Attestation Dallas Negrete MD 07/20/241932 Dallas Negrete MD 07/20/241944 Dallas Negrete MD 07/20/242048 Dallas Negrete MD 07/20/242146 Dallas Negrete MD 07/20/242309 documented in this encounter Consult Notes * Donna Isaac LCSW - 07/21/2024 10:09 AM ESTAssociated Order(s): IP CONSULT TO [employer] [facility] [facility] - Crisis Assessment Important times Time of arrival: 07/20/24 19:16 Time of referral: 07/21/24 04:45 Time of readiness: 07/21/24 08:40 Time assessment started: 07/21/24 08:45 Time of disposition: 07/21/24 10:00 Location: [facility] Emergency Room (ER) Consulted case with: JAQUELIN Peralta LCSW -*PURPOSE OF CONSULT/PRESENTING PROBLEM*- Twyla Banks is being seen by [facility] Behavioral Health Specialist due to coming into the ED for a drug overdose suicide attempt by taking 10 tablets of clonidine 0.1 mg at 6:30 pm 07/20/24. Twyla shared about having family issues that she feels is her fault, causing her to feel like a ???burden?? and a ???bad person?? . Twyla disclosed that she has diagnosed depression and that she doesn't feel as if her medication she takes is working. Twyla sees her therapist twice a month and mentioned that she doesn't feel like her therapist is helping and that its not a good fit for her. Inpatient services were recommended to her, and she agreed it would be the best option for her to receive better mental health services and review her medications. 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 Social/Educational History: Guardian: Self [place] Status: N/A State Agency Involvement: None Wilfredo's Order: None Marital Status: Not discussed Alternative Placement Details: None Living Situation for patient: Patient lives with her mom. Friendships/Family/Social Peer Support/Relationships: Patient mentioned her mom a good relationship. Highest level of education: Not discussed Occupation: Not discussed Employment/Extracurricular Activities/Hobbies: Not discussed Limitations of Daily Activities: None -*LIVING SITUATION*- Twyla said that she lives with her mom. -*STRENGTHS & SUPPORTS*- Help-seeking, Twyla mentioned her mother being a support in her life. -*COLLATERRALS, CONTACT INFORMATION, AND ENGAGEMENT LEVEL*- Therapist: Twyla mentioned seeing a therapist but the name and number were not disclosed. Psychiatrist: Dr. Gil at [facility], mentioned by her mother. PCP: Family: Fiona Layton, mother. Cell phone: [phone] Fiona mentioned that Twyla has been ???very Down?? the last few months. She mentioned that Twyla has come to her talking about hurting herself and constant talk about it would be ???better if she wasn't here?? . Fiona mentioned that when Twyla was in high school it was the worst mentally, she has ever been, and she feels as is Twyla is resorting bad to that mental state. She noticed that Twyla has been talking to herself in private and in public and that she has been isolating herself more than usual and constantly in her room. Twyla's mom said that she has been to a [facility] where she befriended someone and created a safety plan for when either of them felt like hurting themselves. Other: Patient mentioned she has a therapist but that they were not a good fit for her. -*MENTAL STATUS EXAM*- Speech: WNL Eye Contact: Intermittent Motor Activity: WNL Mood: Depressed Affect: Appropriate Sleep: Poor Appetite: Poor Memory: WNL Attention/ Concentration: WNL Behavior: Cooperative Hallucinations: Not discussed Delusions: Not discussed Thought Content: WNL SI: Denied HI: Denied Thought Process: WNL Orientation Impairment: None Insight: Poor Judgment: Poor Impulse Control: Fair -*SUBSTANCE USE*- She reported drinking alcohol, we did not discuss how much and how frequently. Tox screen was clearall substances or alcohol. SUBSTANCE USE TREATMENT HISTORY: None reported FAMILY HISTORY OF SUBSTANCE USE: None reported -*MENTAL HEALTH*- Past/Current Diagnoses: Nash Syndrome ADHD Major Depressive OCD Current Medications: Wellbutrin 450 mg Duloxetine Clonidine Trazadone TREATMENT HISTORY: Twyla has no behavioral health history with [facility]. She has seen therapists and psychologist in the past and currently and takes antidepressants. She denied any history of inpatient admissions. FAMILY HISTORY OF MENTAL ILLNESS: Not discussed with patient. TRAUMA HISTORY: Twyla disclosed that there was trauma history in high school and that she felt as if she was going through psychosis. -*RISK ASSESSMENT*- Self-Harm: Current, patient had intentional overdose on psychiatric medications prior to arrival tot ED. Suicidality: Current, Passed. Patient stated that she isn't currently feeling suicidal but has had thoughts in the past. Homicidally: None Physical Assault: None Physical Aggression: None Property Damage: None Verbal Aggression: None Family History of suicide: Not discussed Protective factor: Can advocate for her own needs Help-seeking Open and willing to get mental health treatment. Was honest about her medication not working for her and that her therapist wasn't a got fit for her. Risk factors: Current suicide attempt by overdose on medciations. Past suicidal thoughts. Major depressive diagnosis. Suicide risk: Based on history and current presentation, patient's level of risk for intentional lethal harm is low-moderate. -*Risk Assessment Summary and Safety Plan*- SAFETY PLAN COMPLETED? No CONSIDERATIONS FOR REFERRALS: Transportation: Able to transport self Preferred Gender of Provider: Current providers Appt Times Availability: Any -*INTERVENTIONS*- Risk assessment Motivational interviewing Empathetic listening -*RESPONSE TO INTERVENTIONS*- Twyla was fully engaged during the assessment. She was open to trying new mental health treatments such as new antidepressants and trying to find a new therapist that better fits her needs. DSM-5 DIAGNOSIS: F33.1 Major depressive disorder, recurrent, moderate -*PLAN*- Based on the severity of Twyla's overdose, she would benefit from voluntary inpatient to help review medications, therapeutic options, and to ensure she safety to return home when she is ready. Patient meets criteria for inpatient hospitalization for safety and containment, mood stabilization, medication evaluation, individual and group therapies, and connection to community providers. Patient is currently voluntary for admission, however, should they change their mind, they need to be re-evaluated by the Behavioral Health team to determine if that is appropriate based on their current level of risk and presentation. It is a pleasure to assist in the care of Twyla Banks here at [facility]. This report is written and finalized by: JAQUELIN Quezada Student Forest Management Teacher Supervised by JAQUELIN Chadwick, [facility] Behavioral Health Specialist [facility] (tel): / (fax): documented in this encounter Plan of Treatment Not on file documented as of this encounter Procedures Procedure Name Priority Date/Time Associated Diagnosis Comments ECG 12-LEAD STAT 07/20/2024 11:05 PM EST ECG 12-LEAD STAT 07/20/2024 8:10 PM EST CBC WITH AUTO DIFFERENTIAL STAT 07/20/2024 7:59 PM EST CBC AND DIFFERENTIAL STAT 07/20/2024 7:59 PM EST ETHANOL STAT 07/20/2024 7:59 PM EST ACETAMINOPHEN LEVEL STAT 07/20/2024 7 :59 PM EST SALICYLATE LEVEL STAT 07/20/2024 7:59 PM EST COMPREHENSIVE METABOLIC PANEL STAT 07/20/2024 7:59 PM EST POC , URINE DIAGNOSTIC STAT 07/20/2024 7:49 PM EST POC , URINE DIAGNOSTIC STAT 07/20/2024 7:45 PM EST DRUG ABUSE SCREEN 8A PANEL, URINE STAT 07/20/2024 7:43 PM EST BUPRENORPHINE SCREEN, URINE STAT 07/20/2024 7:43 PM EST METHADONE SCREEN, URINE STAT 07/20/2024 7:43 PM EST PHENCYCLIDINE, URINE STAT 07/20/2024 7:43 PM EST ECG ANNOTATED 07/20/2024 documented in this encounter Results * ECG 12 lead (07/20/2024 11:05 PM EST) Ventricular Rate ECG 80 BPM GEMUSE Atrial Rate 80 BPM GEMUSE P-R Interval 154 ms GEMUSE QRS Duration 92 ms GEMUSE Q-T Interval 402 ms GEMUSE QTc 463 ms GEMUSE P Wave [place] 80 degrees GEMUSE R [place] 74 degrees GEMUSE T [place] 63 degrees GEMUSE ECG Interpretation Normal sinus rhythm Possible Left atrial enlargement When compared with ECG of 20-JUL-2024 20:10, (unconfirmed) No significant change was found Confirmed by XUAN DENNISON ([id number]) on 07/22/2024 4:55:39 AM GEMUSE 07/20/2024 11:0 5 PM EST 07/22/2024 4:55 AM EST us Dallas Negrete MD ECG ORDERABLES Final Resul t GEMUSE * ECG 12 lead (07/20/2024 8:10 PM EST) Ventricular Rate ECG 86 BPM GEMUSE Atrial Rate 86 BPM GEMUSE P-R Interval 150 ms GEMUSE QRS Duration 80 ms GEMUSE Q-T Interval 376 ms GEMUSE QTc 449 ms GEMUSE P Wave [place] 73 degrees GEMUSE R [place] 65 degrees GEMUSE T [place] 59 degrees GEMUSE ECG Interpretation Normal sinus rhythm Possible Left atrial enlargement No previous ECGs available Confirmed by XUAN DENNISON ([id number]) on 07/22/2024 4:54:13 AM GEMUSE 07/20/2024 8:10 PM EST 07/22/2024 4:54 AM EST us Dallas Negrete MD ECG ORDERABLES Final Resul t GEMUSE * (ABNORMAL) CBC auto differential (07/20/2024 7:59 PM EST) [facility] WBC 11.9(H) 4.8 - 10.8 K/mcL LAB HEMETOLOGY METHOD 07/20/2024 8:31 PM [facility] RBC 4.40 3.80 - 4.80 M/mcL LAB HEMETOLOGY METHOD 07/20/2024 8:31 PM [facility] Hemoglobin 13.6 11.5 - 16.0 g/dL LAB HEMETOLOGY METHOD 07/20/2024 8:31 PM [facility] Hematocrit 38.9 35.0 - 47.0 % LAB HEMETOLOGY METHOD 07/20/2024 8:31 PM [facility] MCV 89.2 79.0 - 98.0 FL LAB HEMETOLOGY METHOD 07/20/2024 8:31 PM [facility] MCH 31.2 27.0 - 32.0 pcg LAB HEMETOLOGY METHOD 07/20/2024 8:31 PM [facility] MCHC 35.0 32.0 - 37.0 g/dL LAB HEMETOLOGY METHOD 07/20/2024 8:31 PM [facility] RDW 11.0 11.0 - 15.0 % LAB HEMETOLOGY METHOD 07/20/2024 8:31 PM [facility] Platelets 284 130 - 400 K/mcL LAB HEMETOLOGY METHOD 07/20/2024 8:31 PM [facility] MPV 10.5 7.0 - 11.0 FL LAB HEMETOLOGY METHOD 07/20/2024 8:31 PM [facility] NRBC 0.0 <1.0 % LAB HEMETOLOGY METHOD 07/20/2024 8:31 PM [facility] NRBC Absolute 0.00 <0.10 K/mcL LAB HEMETOLOGY METHOD 07/20/2024 8:31 PM [facility] Neutrophils Relative 71.2 % LAB HEMETOLOGY METHOD 07/20/2024 8:31 PM [facility] Lymphocytes Relative 17.8 % LAB HEMETOLOGY METHOD 07/20/2024 8:31 PM [facility] Monocytes Relative 9.8 % LAB HEMETOLOGY METHOD 07/20/2024 8:31 PM [facility] Eosinophils Relative 0.4 % LAB HEMETOLOGY METHOD 07/20/2024 8:31 PM [facility] Basophils Relative 0.3 % LAB HEMETOLOGY METHOD 07/20/2024 8:31 PM [facility] Immature Granulocytes Relative 0.5 % LAB HEMETOLOGY METHOD 07/20/2024 8:31 PM [facility] Neutrophils Absolute 8.45(H) 1.50 - 7.00 K/mcL LAB HEMETOLOGY METHOD 07/20/2024 8:31 PM [facility] Lymphocytes Absolute 2.12 1.00 - 5.00 K/mcL LAB HEMETOLOGY METHOD 07/20/2024 8:31 PM EST [facility] Monocytes Absolute 1.16(H) 0.20 - 1.00 K/[facility] LAB HEMETOLOGY METHOD 07/20/2024 8:31 PM EST [facility] Eosinophils Absolute 0.05 0.00 - 0.50 K/[facility] LAB HEMETOLOGY METHOD 07/20/2024 8:31 PM EST [facility] Basophils Absolute 0.04 0.00 - 0.20 K/[facility] LAB HEMETOLOGY METHOD 07/20/2024 8:31 PM EST [facility] Immature Granulocytes Absolute 0.06(H) 0.00 - 0.03 K/[facility] LAB HEMETOLOGY METHOD 07/20/2024 8:31 PM EST [facility] Blood Venous blood specimen / Unknown Venipuncture / Unknown 07/20/2024 7:59 PM EST 07/20/2024 8:11 PM EST Dallas Negrete MD LAB BLOOD ORDERABLES Final Result Performing Organization Address City/[facility]/ZIP Co de Phone Number [facility] [address] [place] [address], [place] [phone] * (ABNORMAL) Salicylate level (07/20/2024 7:59 PM EST) Salicylate Level <1.7(L) 2.0 - 29.0 mg/dL LAB CHEMISTRY METHOD 07/20/2024 8:50 PM EST [facility] Blood Venous blood specimen / Unknown Venipuncture / Unknown 07/20/2024 7:59 PM EST 07/20/2024 8:11 PM EST Dallas Negrete MD LAB BLOOD ORDERABLES Final Result [facility] [address] [place] [address], [place] [phone] * (ABNORMAL) Acetaminophen level (07/20/2024 7:59 PM EST) Acetaminophen Level <2.0(L) 10.0 - 30.0 mcg/mL LAB CHEMISTRY METHOD 07/20/2024 8:50 PM EST [facility] Blood Venous blood specimen / Unknown Venipuncture / Unknown 07/20/2024 7:59 PM EST 07/20/2024 8:11 PM EST Dallas Negrete MD LAB BLOOD ORDERABLES Final Result Performing Organization Address City/[facility]/ZIP Co de Phone Number [facility] [address] [place] [address], [place] [phone] * Ethanol (07/20/2024 7:59 PM EST) Ethanol Level <3 0 - 10 mg/dL LAB CHEMISTRY METHOD 07/20/2024 8:50 PM EST [facility] Blood Venous blood specimen / Unknown Venipuncture / Unknown 07/20/2024 7:59 PM EST 07/20/2024 8:11 PM EST Dallas Negrete MD LAB BLOOD ORDERABLES Final Result Performing Organization Address City/[facility]/ZIP Co de Phone Number [facility] [address] [place] [address], [place] [phone] * (ABNORMAL) Comprehensive metabolic panel (07/20/2024 7:59 PM EST) Sodium 135 133 - 145 mmol/L LAB CHEMISTRY METHOD 07/20/2024 8:50 PM EST [facility] Potassium 3.9 3.5 - 5.5 mmol/L LAB CHEMISTRY METHOD 07/20/2024 8:50 PM EST [facility] Chloride 105 96 - 110 mmol/L LAB CHEMISTRY METHOD 07/20/2024 8:50 PM [facility] CO2 24 21 - 32 mmol/L LAB CHEMISTRY METHOD 07/20/2024 8:50 PM [facility] Anion Gap 6 3 - 11 LAB CHEMISTRY METHOD 07/20/2024 8:50 PM [facility] Glucose 136(H) 70 - 100 mg/dL LAB CHEMISTRY METHOD 07/20/2024 8:50 PM [facility] BUN 12 5 - 25 mg/dL LAB CHEMISTRY METHOD 07/20/2024 8:50 PM [facility] Creatinine 0.91 0.50 - 1.10 mg/dL LAB CHEMISTRY METHOD 07/20/2024 8:50 PM [facility] eGFR 90 >=60 mL/min/1. 73m2 LAB CHEMISTRY METHOD 07/20/2024 8:50 PM [facility] Comment:Calculation based on the??Chronic Kidney Disease Epidemiology Collaboration (CKD-EPI) equation refit??without adjustment for race. BUN/Creatinine Ratio 13.2 LAB CHEMISTRY METHOD 07/20/2024 8:50 PM [facility] Calcium 9.2 8.5 - 10.5 mg/dL LAB CHEMISTRY METHOD 07/20/2024 8:50 PM [facility] AST (SGOT) 13 10 - 42 unit/L LAB CHEMISTRY METHOD 07/20/2024 8:50 PM [facility] ALT (SGPT) 21 10 - 60 unit/L LAB CHEMISTRY METHOD 07/20/2024 8:50 PM [facility] Alkaline Phosphatase 62 42 - 121 unit/L LAB CHEMISTRY METHOD 07/20/2024 8:50 PM [facility] Total Protein 6.7 6.0 - 8.0 g/dL LAB CHEMISTRY METHOD 07/20/2024 8:50 PM [facility] Albumin 3.9 3.2 - 5.0 g/dL LAB CHEMISTRY METHOD 07/20/2024 8:50 PM [facility] Total Bilirubin 0.3 0.0 - 1.4 mg/dL LAB CHEMISTRY METHOD 07/20/2024 8:50 PM EST [facility] Blood Venous blood specimen / Unknown Venipuncture / Unknown 07/20/2024 7:59 PM EST 07/20/2024 8:11 PM EST Dallas Negrete MD LAB BLOOD ORDERABLES Final Result [facility] [address] [place] [address], [place] [phone] * POC , urine manually resulted (07/20/2024 7:49 PM EST) HCG, Ur POC Negative Negative POC hCG Int QC Pass? Yes Yes Urine Urine specimen obtained by clean catch procedure / Unknown 07/20/2024 7:49 PM EST Dallas Negrete MD POINT OF CARE TEST ENTER/ED IT ORDERABLES Final Result * (ABNORMAL) POC , urine manually resulted (07/20/2024 7:45 PM EST) HCG, Ur POC Negative Negative POC hCG Int QC Pass? No(A) Yes Urine Urine specimen obtained by clean catch procedure / Unknown 07/20/2024 7:45 PM EST Dallas Negrete MD POINT OF CARE TEST ENTER/ED IT ORDERABLES Final Result * Methadone, urine (07/20/2024 7:43 PM EST) Methadone Screen, Urine Negative Negative LAB CHEMISTRY METHOD 07/20/2024 8:48 PM EST [facility] Comment: Assay cutoff 300 ng/mL Semi-quantitative assay for screening purposes only. Unconfirmed screening result should not be used for non-medical purposes. *ALTERNATE METHOD CONFIRMATION DONE UPON REQUEST ONLY* Urine Urine specimen obtained by clean catch procedure / Unknown Non-blood Collection / Unknown 07/20/2024 7:43 PM EST 07/20/2024 8:04 PM EST Dallas Negrete MD LAB URINE ORDERABLES Final Result Performing Organization Address [facility]/ZIP Co de Phone Number [facility] [address] [place] [address], [place] [phone] * Phencyclidine, urine (07/20/2024 7:43 PM EST) PCP Scrn, Ur Negative Negative LAB CHEMISTRY METHOD 07/20/2024 8:48 PM EST [facility] Comment: Assay cutoff 25 ng/mL Semi-quantitative assay for screening purposes only. Unconfirmed screening result should not be used for non-medical purposes. *ALTERNATE METHOD CONFIRMATION DONE UPON REQUEST ONLY* Urine Urine specimen obtained by clean catch procedure / Unknown Non-blood Collection / Unknown 07/20/2024 7:43 PM EST 07/20/2024 8:04 PM EST Dallas Negrete MD LAB URINE ORDERABLES Final Result Performing Organization Address City/[facility]/ZIP Co de Phone Number [facility] [address] [place] [address], [place] [phone] * Buprenorphine screen, urine (07/20/2024 7:43 PM EST) Buprenorphine Screen Urine Negative Negative LAB CHEMISTRY METHOD 07/20/2024 8:48 PM EST [facility] Urine Urine specimen obtained by clean catch procedure / Unknown Non-blood Collection / Unknown 07/20/2024 7:43 PM EST 07/20/2024 8:04 PM EST Narrative [facility] - 07/20/2024 8:48 PM EST Assay cutoff 5 ng/mL Semi-quantitative assay for screening purposes only. Unconfirmed screening result should not be used for non-medical purposes. *ALTERNATE METHOD CONFIRMATION DONE UPON REQUEST ONLY* us Dallas Negrete MD LAB URINE ORDERABLES Final Result [facility] [address] [place] [address], * Drug abuse screen 8a panel, urine (07/20/2024 7:43 PM EST) Amphetamine Screen, Ur Negative Negative LAB CHEMISTRY METHOD 07/20/2024 9:14 PM EST [facility] Comment:Certain OTC medicati ons containing ephedrine, phenylephrine, pseudoephedrine and phenylpropanolamine can cause false positive results. Barbiturate Screen, Ur Negative Negative LAB CHEMISTRY METHOD 07/20/2024 9:14 PM EST [facility] Benzodiazepine Screen, Ur Negative Negative LAB CHEMISTRY METHOD 07/20/2024 9:14 PM [facility] Cocaine Screen, Ur Negative Negative LAB CHEMISTRY METHOD 07/20/2024 9:14 PM EST [facility] Opiate Screen, Ur Negative Negative LAB CHEMISTRY METHOD 07/20/2024 9:14 PM [facility] Cannabinoid (THC) Screen, Ur Negative Negative LAB CHEMISTRY METHOD 07/20/2024 9:14 PM [facility] Comment:Specimens from patie nts taking pantoprazole sodium (Protonix) have been shown to produce false positive results. Oxycodone Screen, Ur Negative Negative LAB CHEMISTRY METHOD 07/20/2024 9:14 PM EST [facility] Fentanyl, Ur Negative Negative LAB CHEMISTRY METHOD 07/20/2024 9:14 PM [facility] Urine Urine specimen obtained by clean catch procedure / Unknown Non-blood Collection / Unknown 07/20/2024 7:43 PM EST 07/20/2024 8:04 PM EST [facility] - 07/20/2024 9:14 PM EST Assay [...] REQUEST ONLY* Dallas Negrete MD LAB URINE ORDERABLES Final Result [facility] [address] [place] [address], * ECG-Annotated (07/20/2024) Provider Onbase MD ECG ORDERABLES Final Result documented in this encounter Visit Diagnoses Diagnosis Major depressive disorder, recurrent episode, moderate (CMS/HCC)- Primary Major depressive disorder, recurrent episode, moderate documented in this encounter Administered Medications Inactive Administered Medications - up to 3 most recent administrations Medication Order MAR Action Action Date Dose Rate Site activated charcoaL (ACTI-DOSE AQUA) suspension 50 g 50 g, oral, Once, On Fri07/20/24 at 194, For 1 dose Given 07/20/2024 8:25 PM EST 50 g ondansetron (PF) (ZOFRAN) injection 4 mg 4 mg, intravenous, Once, On Fri07/20/24 at 2024, For 1 dose Given 07/20/2024 8:26 PM EST 4 mg sodium chloride 0.9 % infusion 125 mL/hr, intravenous, Continuous, Starting on Fri07/20/24 at 1944 Rate/Dose Verify 07/20/2024 10:23 PM EST 125 mL/hr 125 mL/hr New Bag 07/20/2024 7:52 PM EST 125 mL/hr 125 mL/hr documented in this encounter Historical Medications * This list may reflect changes made after this encounter. methylphenidate 36 mg ER tablet Take 1 tablet (36 mg total) by mouth 1 (one) time each day in the morning. Do not crush, chew, or split. Max Daily Amount: 36 mg ARIPiprazole (ABILIFY) 5 mg tablet Take 1 tablet (5 mg total) by mouth 1 (one) time each day. DULoxetine (CYMBALTA) [address] capsule Take 2 capsules (120 mg total) by mouth 1 (one) time each day. Do not crush or chew. norethindrone-et hinyl estradiol (FEMHRT 06/20) 1-5 mg-mcg per tablet Take 1 tablet by mouth 1 (one) time each day. cloNIDine (CATAPRES) 0.1 mg tablet Take 1 tablet (0.1 mg total) by mouth 2 (two) times a day. LORazepam (ATIVAN) 0.5 mg tablet Take 1 tablet (0.5 mg total) by mouth 1 (one) time each day. Max Daily Amount: 0.5 mg buPROPion SR (WELLBUTRIN SR) 150 mg 12 hr tablet Take 1 tablet (150 mg total) by mouth 1 (one) time each day. Do not crush, chew, or split. 08/18/2024 added in this encounter Active and Recently Administered Medications Times are shown in EST. Scheduled Medication Order 07/19/2024 07/20/2024 07/21/2024 activated charcoaL (ACTI-DOSE AQUA) suspension 50 g (COMPLETED) 50 g, oral, Once, On Fri07/20/24 at 1944, For 1 dose 2024 (Given - Provider: Yenny Avilez RN) ARIPiprazole (ABILIFY) tablet 5 mg 5 mg, oral, Daily, First dose on Fri07/21/24 at 1715 1829 (Not Given - Provider: Julian Jarquin RN - Reason: Patient/Resident/Agent refused - education provided ) buPROPion SR (WELLBUTRIN SR) 12 hr tablet 150 mg 150 mg, oral, Daily, First dose on Fri07/21/24 at 1800, Do not crush, chew, or split. 1830 (Not Given - Provider: Julian Jarquin RN - Reason: Patient/Resident/Agent refused - education provided ) cloNIDine (CATAPRES) tablet 0.1 mg 0.1 mg, oral, 2 times daily, First dose on Fri07/21/24 at 2100 2100 (Canceled Entry - Provider: Automatic Discharge Provider - Comment: Automatically canceled at discontinue of medication order) DULoxetine (CYMBALTA) DR capsule 120 mg 120 mg, oral, Daily, First dose on Fri07/21/24 at 1715, Do not crush or chew. 1829 (Not Given - Provider: Julian Jarquin RN - Reason: Patient/Resident/Agent refused - education provided ) LORazepam (ATIVAN) tablet 0.5 mg 0.5 mg, oral, Daily, First dose on Fri07/21/24 at 1715 1830 (Not Given - Provider: Julian Jarquin RN - Reason: Patient/Resident/Agent refused - education provided ) methylphenidate ER tablet 36 mg 36 mg, oral, Every morning, First dose on Fri07/22/24 at 0700, Do not crush, chew, or split. ondansetron (PF) (ZOFRAN) injection 4 mg (COMPLETED) 4 mg, intravenous, Once, On Fri07/20/24 at 2024, For 1 dose 2025 (Given - Provider: Yenny Avilez RN) Continuous Medication Order 07/19/2024 07/20/2024 07/21/2024 sodium chloride 0.9 % infusion (CANCELED) 125 mL/hr, intravenous, Continuous, Starting on Fri07/20/24 at 1945 1952 (New Bag - Provider: Yenny Avilez RN)2223 (Rate/Dose Verify - Provider: Yenny Avilez RN) 0035 (Stopped - Provider: Yenny Nash RN) documented in this encounter Orders Medications Ordered That Joel ht Not Have Been Administered Count Last Ordered Date First Ordered Date ARIPiprazole (ABILIFY) tablet 5 mg 1 2024 buPROPion SR (WELLBUTRIN SR) 12 hr tablet 150 mg 1 07/21/2024 cloNIDine (CATAPRES) tablet 0.1 mg 1 2024 DULoxetine (CYMBALTA) DR capsule 120 mg 1 0 07/21/2024 LORazepam (ATIVAN) tablet 0.5 mg 1 07/21/19 methylphenidate ER tablet 36 mg 1 02/05/202 5 Consult Count Last Ordered Date First Orde red Date IP CONSULT TO AIR CONDITIONING EQUIPMENT MECHANIC 1 07/21/2024 documented in this encounter Care Teams Bag Hanger Relationship Specialty Start Date End Date Physician, No Pcp PCP - General 07/20/24 documented as of this encounter
--- OUTSIDE RECORDS SUMMARY | 2024-08-19 19:37 | XMS_ITS ---
Author Organization [facility] Address [address] [place] [address] Care Team Providers Care Toy Assembly Supervisor Name Role Phone Roxy Banuelos Unavailable [phone] Pretty Jang Unavailable [phone] Allergies Allergen (clinical drug ingredient) Drug/Non Drug Allergy documented on EMR Reaction Allergy Type Onset Date Status Substance with sulfonamide structure and antibacterial mechanism of action (substance) Sulfa Antibiotics Unknown Drug Allergy Active REASON FOR VISIT Wart(s) Medications Medication SIG (Take, Route, Frequency, Duration) Notes Start Date End Date Status Abilify Active Amphetamine-Dextroamphetam ine 20 MG 1 tablet Orally Twice a day Active DULoxetine HCl 60 MG 1 capsule Orally Tw ice a day Active Fish Oil 1000 MG 1 capsule Orally Onc e a day for 30 day(s) Active Fyavolv 1-5 MG-MCG 1 tablet Orally Once a day for 30 day(s) Active buPROPion HCl 100 MG 1 tablet Orally Twi ce a day for 30 day(s) Active Social History Tobacco Use: Social History [...] Are you an other tobacco user? No Problems Problem Type SNOMED Code ICD Code Onset Dates Problem Status W/U Status Risk Notes Problem Plantar wart (90330152) Plantar wart (B07.0) Active confirmed Vital Signs Height 5 ft 3 in in 05/05/2023 Weight 145 lbs 05/05/2023 BMI 25.68 kg/m2 05/05/2023 [facility]counters [facility] [place] [address] [facility]/05/2023 Pretty Jang Right foot pain M79.671 and Plantar wart B07.0 Assessments Encounter Date Diagnosis (ICD Code) Assessment Notes Treatment Notes Treatment Clinical Notes Section Notes 05/05/2023 Right foot pain (ICD-10 - M79.671) 05/05/2023 Plantar wart (ICD-10 - B07.0) Plan Of Treatment Next Appt Details Follow Up: 4 Weeks, Reason: Procedure Notes * Category Sub-Category Detail Notes Wart Treatment Procedure Verrucae were de brided to pin-point bleeding margins with sterile 15 surgical blade, silver nitrate chemocautery applied, recomm. immune-boosting meds such as zinc, recomm. follow up with topical chemosurgical agents, recomm Vircin Antiviral cream as directed under occlusion daily Progress Notes * Bertha STUBBSDOB:[birth year] (23 yo F)Acc No.[id number]:05/05/2023 Progress Note Patient:?Darren Bertha Provider:?Pretty Jang DPM :2000???Age:23 Y???Sex:Female D ate:05/05/2023 Address:[address] [place], [place] [id number] Subjective: * Chief Complaints: * ???Wart(s) * HPI: ???Skin problems:?Pt States PCP Visit: ?DATE?11/27/2022 * ROS:?General/Constitutional:?Nausea?denies.?Vomiting?denies.?Hunger Thirst?denies.?Loss appetite?denies.?Chills?denies.?Fatigue?denies.?Fever?denies.?Night Sweats?denies.?Unexplained weight loss?denies.?Unexplained weight gain?denies.?HEENTM:?Dentures?denies.?Dizziness?denies.?Glasses/contacts?denies.?Retinopathy?de nies.?Blurred/double vision?denies.?TMJ?denies.?Discharge/drainage?denies.?Implants?denies.?Sore throat?denies.?Dental implants?denies.?Hard of hearing ?denies.?Difficulty chewing/swallowing/speaking?denies.?Nose bleeds?denies.?Sore mouth?denies.?Respiratory:?On Oxygen?denies.?Pneumonia/pleurisy?denies.?Bronchitis?denies.?Emphysema?denies.?C oughing?denies.?Cough blood?denies.?Shortness of breath?denies.?Wheezing?denies.?Cardiovascular:?Pacemaker?denies.?MVP?denies.?WPW?denies.?CHF?denies.?Heart attack?denies.?Septal defect?denies.?Rapid beat?denies.?Chest pain ?denies.?Atrial Fib.?denies.?Murmur/Palpitations?denies.?Gastrointestinal:?Hemorrhoids?denies.?Stomach/Abdominal pain?denies.?Dark blood stool?denies.?Irritable bowel ?denies.?Constipation?denies.?Diarrhea?denies.?Hematology:?Swelling?denies.?Clots?denies.?Varicose Veins?denies.?Bruising?denies.?Bleeding problem?denies.?Genitourinary:?Blood urine?denies.?Frequent/Painfu/urination/bladder control?denies.?Kidney stones?denies.?Infection (UTI)?denies.?Nephropathy?denies.?sex trans dis (STD)?denies.?Prostate?denies.?Musculoskeletal:?Hammertoes?denies.?Bunions?denies.?Back Pain?denies.?Muscle Cramps/ Resting?denies.?Muscle cramps / walking?denies.?Generalized aches and pains?denies.?Weakness?denies.?Integ.:?[place]?denies.?Scars?denies.?Corns/calluses?denies.?Ingrown nails?denies.?Painful nails?denies.?Open Sores?denies.?Rashes?denies.?Neurologic:?Difficulty sleeping?denies.?Brain disorder?denies.?Numbness?denies.?Balance trouble?denies.?Confusion?denies.?Fainting/blackouts?denies.?Tingling?denies.?Tr emors?denies.? * Medical History:? * Surgical History:?Ear tube P lacement 2008 * Hospitalization/Major Diagno stic Procedure:?No Hospitalization History. * Family History:?Mother: nisha kay, diagnosed with Family history of arthritis.?Father: alive.?Paternal Grand Mother: unknown, diagnosed with Family history of arthritis, Diabetic - NIDDM, Unspecified essential hypertension.?Maternal Grand Mother: unknown, diagnosed with Family history [...] with Friends. ?Marital status: single. ?Occupation: weeks/months/years, [employer] in [place]. * Medications:?TakingAbilify F vianney Oil 1000 MG [...] size estimated at 3mm diameter, plantar Forefoot, RIGHT.? Assessment: * Assessment: 1.?Right foot pain - M79.671 ?2.?Plantar wart - B07.0 (Primary)? Plan: * Treatment: * Procedures:?Wart Treatment:?Procedure?Verrucae were debrided to pin-point bleeding margins with sterile 15 surgical blade, silver nitrate chemocautery applied, recomm. immune-boosting meds such as zinc, recomm. follow up with topical chemosurgical agents, recomm Vircin Antiviral cream as directed under occlusion daily.? * Procedure Codes:?74412 Wart Destruction, 1-14, Modifiers: XS * Follow Up:?4 Weeks * Images: * Sign off status: Completed true * Provider:Yelena Jang, DPM Date:? Generated for Randolph regalado/Adrianna/Apurva on:?08/19/2024 07:37 PM EST History and Physical Notes * [...]
--- OUTSIDE RECORDS SUMMARY | 2024-08-19 19:37 | XMS_ITS | Clinical Summary ---
Author Organization [facility] Address [address] [place] [phone] Phone Care Team Providers Care Phone Engineer Name Role Phone Physician, No Pcp Primary Care Provider Unavaila ble Allergies Active Allergy Reactions Criticality Noted Date Comments Sulfa (Sulfonamide Antibiotics) 09/2024 Medications LORazepam (ATIVAN) 0.5 mg tablet Take 1 tablet (0.5 mg total) by mouth 1 (one) time each day. Max Daily Amount: 0.5 mg Active cloNIDine (CATAPRES) 0.1 mg tablet Take 1 tablet (0.1 mg total) by mouth 2 (two) times a day. Active norethindrone-e thinyl estradiol (FEMHRT /5) 1-5 mg-mcg per tablet Take 1 tablet [...] split. Max Daily Amount: 36 mg Active clomiPRAMINE (ANAFRANIL) 50 mg capsule Take 1 capsule (50 mg total) by mouth daily. 5 Active traZODone (DESYREL) 50 mg tablet Take 1-2 tablets (50-100 mg total) by mouth daily. 4 Active buPROPion XL (WELLBUTRIN XL) 300 mg 24 hr tablet Take 1 tablet (300 mg total) by mouth daily. 1 Active DULoxetine (CYMBALTA) [address] capsule Take 2 capsules (120 mg total) by mouth daily. 4 Active buPROPion SR (WELLBUTRIN SR) 150 mg 12 hr tablet Take 1 tablet (150 mg total) by mouth 1 (one) time each day. Do not crush, chew, or split. 08/19/19 25 [facility] Encounters Date Type Department Care Team Description 08/18/2024 6:28 PM EST - 08/19/2024 4:52 PM EST Emergency [facility] Emergency [address] [place] [address] He Downs MD Garvin, MD Ar Brooks Parth B, MD Vatrenko, Konstantin, MD Depression, unspecified depression type (Primary Dx); Moderate episode of recurrent major depressive disorder (CMS/HCC) Discharge Disposition: Psychiatric Hospital 07/20/2024 7:18 PM EST - 07/21/2024 7:08 PM EST Emergency [facility] Emergency [address] [place] [address] Dallas Negrete MD Millay, MD Yissel Short Matthew C, Major depressive disorder, recurrent episode, moderate (CMS/HCC) (Primary Dx) Discharge Disposition: Psychiatric Hospital from Last 3 Months Medical History Medical History Date Comments 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[facility] Major depressive disorder per EMR Generalized anxiety disorder per EMR 2018 Adhd per EMR 2018 Suicidal overdose (CMS/HCC) 08/18/2024 ibup rofen, also intentional clonidine overdose jul 2024 per EMR Social History Tobacco Use Types Packs/Day Years Used Date Smoking Tobacco: Never Smokeless Tobacco: Never Tobacco Cessation:Counseling Given: Not Answered Alcohol Use Standard Drinks/Week Comments Yes 1 (1 standard drink = 0.6 oz pur e alcohol) Comments Unknown Sex and Gender Information Value Date Recorded Sex Assigned at Female 07/20/2024 8:41 PM EST Legal Sex Female 9:48 PM EST Gender Identity Female 07/20/2024 8:41 PM EST Sexual Orientation Straight 07/20/2024 8: 41 PM EST Obstetrics History Last Filed Vital Signs Vital Sign Reading Time Taken Comments Blood Pressure 129/74 08/19/2024 4:49 PM EST Pulse 66 08/19/2024 4:49 PM EST Temperature 36.8 ??C (98.3 ??F) 08/19/2024 4:49 PM ES T Respiratory Rate 16 08/19/2024 4:49 PM EST Oxygen Saturation 100% 08/19/2024 4:49 PM EST Inhaled Oxygen Concentration - - Weight 72.6 kg (160 lb) 08/18/2024 7:10 PM EST Height 160 cm (5' 3 ) 08/18/2024 7:10 PM EST Body Mass Index 28.34 08/18/2024 7:10 PM EST Plan of Treatment Health Maintenance Due Date Last Done Comments Meningococcal B Vacine (2 of 2 - Bexsero SCDM 2-dose series) 12/21/2018 06/23/2018 Cholesterol Screening (Lipid Panel) 07/17/2019 HIV Screening 07/17/2019 Hepatitis C Screening 07/17/2019 Social Influencers of Health Screening 07/17/2019 Cervical Cancer Screening: Pap Smear 02/16/2020 COVID-19 Vaccine ( season) 2024 11/24/2020, 11/03/2020 Influenza Vaccine (#1) 2024 9, 04/01/2017, 02/22/2016, [...] Date/Time Associated Diagnosis Comments ECG 12-LEAD STAT 08/19/2024 11:46 AM EST CBC WITH AUTO DIFFERENTIAL STAT 08/18/2024 6:53 PM EST METHADONE SCREEN, URINE STAT 08/18/2024 6:53 PM EST PHENCYCLIDINE, URINE STAT 08/18/2024 6:53 PM EST BUPRENORPHINE SCREEN, URINE STAT 08/18/2024 6:53 PM EST DRUG ABUSE SCREEN 8A PANEL, URINE STAT 08/18/2024 6:53 PM EST SALICYLATE LEVEL STAT 08/18/2024 6:53 PM EST ACETAMINOPHEN LEVEL STAT 08/18/2024 6 :53 PM EST ETHANOL STAT 08/18/2024 6:53 PM EST COMPREHENSIVE METABOLIC PANEL STAT 08/18/2024 6:53 PM EST CBC AND DIFFERENTIAL STAT 08/18/2024 6:53 PM EST ECG 12-LEAD STAT 07/20/2024 11:05 PM EST [...] PANEL, URINE STAT 07/20/2024 7:43 PM EST ECG ANNOTATED 07/20/2024 from Last 3 Months Results * ECG 12 lead (08/19/2024 11:46 AM EST) Only the most recent of3 resultswithin the time period is included. Ventricular Rate ECG 101 BPM GEMUSE Atrial Rate 101 BPM GEMUSE P-R Interval 132 ms GEMUSE QRS Duration 84 ms GEMUSE Q-T Interval 356 ms GEMUSE QTc 461 ms GEMUSE P Wave [place] 74 degrees GEMUSE R [place] 68 degrees GEMUSE T [place] 66 degrees GEMUSE ECG Interpretation Sinus tachycardia Otherwise normal ECG When compared with ECG of 20-JUL-2024 23:05, No significant change was found Confirmed by Maximilian SEWELL YUFENG ([id number]) on 08/19/2024 5:41:05 PM GEMUSE 08/19/2024 11:4 6 AM EST 08/19/2024 5:41 PM EST Alex Joyner MD ECG ORDERABLES Final Result GEMUSE * Drug abuse screen 8a panel, urine (08/18/2024 6:53 PM EST) Only the most recent of2 resultswithin the time period is included. Amphetamine Screen, Ur Negative Negative LAB CHEMISTRY METHOD 08/18/2024 7:43 PM [facility] Comment:Certain OTC medicati ons containing ephedrine, phenylephrine, pseudoephedrine and phenylpropanolamine can cause false positive results. Barbiturate Screen, Ur Negative Negative LAB CHEMISTRY METHOD 08/18/2024 7:43 PM [facility] Benzodiazepine Screen, Ur Negative Negative LAB CHEMISTRY METHOD 08/18/2024 7:43 PM [facility] Cocaine Screen, Ur Negative Negative LAB CHEMISTRY METHOD 08/18/2024 7:43 PM [facility] Opiate Screen, Ur Negative Negative LAB CHEMISTRY METHOD 08/18/2024 7:43 PM [facility] Cannabinoid (THC) Screen, Ur Negative Negative LAB CHEMISTRY METHOD 08/18/2024 7:43 PM [facility] Comment:Specimens from patie nts taking pantoprazole sodium (Protonix) have been shown to produce false positive results. Oxycodone Screen, Ur Negative Negative LAB CHEMISTRY METHOD 08/18/2024 7:43 PM [facility] Fentanyl, Ur Negative Negative LAB CHEMISTRY METHOD 08/18/2024 7:43 PM [facility] Urine Urine specimen obtained by clean catch procedure / Unknown Non-blood Collection / Unknown 08/18/2024 6:53 PM EST 08/18/2024 7:07 PM EST Narrative [facility] - 08/18/2024 7:43 PM EST Assay cutoffs: Amphetamines ? 1000 ng/mL Barbiturates ?200 ng/mL Benzodiazepines ?? 200 ng/mL Cocaine ? 300 ng/mL Fentanyl ?1 ng/mL Opiates ? 300 ng/mL Oxycodone ? 100 ng/mL THC ?50 ng/mL Semi-quantitative assay for screening purposes only. Unconfirmed screening result should not be used for non-medical purposes. *ALTERNATE METHOD CONFIRMATION DONE UPON REQUEST ONLY* He Downs MD LAB URINE ORDERABLES Final Res ult Performing Organization Address [facility] de Phone Number [facility] [address] [place] [address], * Buprenorphine screen, urine (08/18/2024 6:53 PM EST) Only the most recent of2 resultswithin the time period is included. Pathologist [facility] Buprenorphine Screen Urine Negative Negative LAB CHEMISTRY METHOD 08/18/2024 7:43 PM EST [facility] Urine Urine specimen obtained by clean catch procedure / Unknown Non-blood Collection / Unknown 08/18/2024 6:53 PM EST 08/18/2024 7:07 PM EST Narrative [facility] - 08/18/2024 7:43 PM EST Assay cutoff 5 ng/mL Semi-quantitative assay for screening purposes only. Unconfirmed screening result should not be used for non-medical purposes. *ALTERNATE METHOD CONFIRMATION DONE UPON REQUEST ONLY* He Downs MD LAB URINE ORDERABLES Final Res ult Performing Organization Address [facility] de Phone Number [facility] [address] [place] [address], * Methadone, urine (08/18/2024 6:53 PM EST) Only the most recent of2 resultswithin the time period is included. Pathologist [facility] Methadone Screen, Urine Negative Negative LAB CHEMISTRY METHOD 08/18/2024 7:43 PM [facility] Comment: Assay cutoff 300 ng/mL Semi-quantitative assay for screening purposes only. Unconfirmed screening result should not be used for non-medical purposes. *ALTERNATE METHOD CONFIRMATION DONE UPON REQUEST ONLY* Urine Urine specimen obtained by clean catch procedure / Unknown Non-blood Collection / Unknown 08/18/2024 6:53 PM EST 08/18/2024 7:07 PM EST He Downs MD LAB URINE ORDERABLES Final Res ult [facility] [address] [place] [address], * CBC auto differential (08/18/2024 6:53 PM EST) Only the most recent of2 resultswithin the time period is included. Pathologist [facility] WBC 8.7 4.8 - 10.8 K/mcL LAB HEMETOLOGY METHOD 08/18/2024 7:12 PM [facility] RBC 4.40 3.80 - 4.80 M/mcL LAB HEMETOLOGY METHOD 08/18/2024 7:12 PM [facility] Hemoglobin 13.8 11.5 - 16.0 g/dL LAB HEMETOLOGY METHOD 08/18/2024 7:12 PM [facility] Hematocrit 40.1 35.0 - 47.0 % LAB HEMETOLOGY METHOD 08/18/2024 7:12 PM [facility] MCV 92.0 79.0 - 98.0 FL LAB HEMETOLOGY METHOD 08/18/2024 7:12 PM [facility] MCH 31.7 27.0 - 32.0 pcg LAB HEMETOLOGY METHOD 08/18/2024 7:12 PM [facility] MCHC 34.4 32.0 - 37.0 g/dL LAB HEMETOLOGY METHOD 08/18/2024 7:12 PM [facility] RDW 11.4 11.0 - 15.0 % LAB HEMETOLOGY METHOD 08/18/2024 7:12 PM [facility] Platelets 268 130 - 400 K/mcL LAB HEMETOLOGY METHOD 08/18/2024 7:12 PM [facility] MPV 10.6 7.0 - 11.0 FL LAB HEMETOLOGY METHOD 08/18/2024 7:12 PM [facility] NRBC 0.0 <1.0 % LAB HEMETOLOGY METHOD 08/18/2024 7:12 PM [facility] NRBC Absolute 0.00 <0.10 K/mcL LAB HEMETOLOGY METHOD 08/18/2024 7:12 PM [facility] Neutrophils Relative 53.7 % LAB HEMETOLOGY METHOD 08/18/2024 7:12 PM [facility] Lymphocytes Relative 32.3 % LAB HEMETOLOGY METHOD 08/18/2024 7:12 PM [facility] Monocytes Relative 10.9 % LAB HEMETOLOGY METHOD 08/18/2024 7:12 PM [facility] Eosinophils Relative 2.3 % LAB HEMETOLOGY METHOD 08/18/2024 7:12 PM [facility] Basophils Relative 0.5 % LAB HEMETOLOGY METHOD 08/18/2024 7:12 PM [facility] Immature Granulocytes Relative 0.3 % LAB HEMETOLOGY METHOD 08/18/2024 7:12 PM [facility] Neutrophils Absolute 4.66 1.50 - 7.00 K/mcL LAB HEMETOLOGY METHOD 08/18/2024 7:12 PM [facility] Lymphocytes Absolute 2.81 1.00 - 5.00 K/mcL LAB HEMETOLOGY METHOD 08/18/2024 7:12 PM EST [facility] Monocytes Absolute 0.95 0.20 - 1.00 K/mcL LAB HEMETOLOGY METHOD 08/18/2024 7:12 PM EST [facility] Eosinophils Absolute 0.20 0.00 - 0.50 K/mcL LAB HEMETOLOGY METHOD 08/18/2024 7:12 PM EST [facility] Basophils Absolute 0.04 0.00 - 0.20 K/mcL LAB HEMETOLOGY METHOD 08/18/2024 7:12 PM EST [facility] Immature Granulocytes Absolute 0.03 0.00 - 0.03 K/mcL LAB HEMETOLOGY METHOD 08/18/2024 7:12 PM EST [facility] Blood Venous blood specimen / Unknown Venipuncture / Unknown 08/18/2024 6:53 PM EST 08/18/2024 7:07 PM EST He Downs MD LAB BLOOD ORDERABLES Final Res ult [facility] [address] [place] [address], * Phencyclidine, urine (08/18/2024 6:53 PM EST) Only the most recent of2 resultswithin the time period is included. PCP Scrn, Ur Negative Negative LAB CHEMISTRY METHOD 08/18/2024 7:43 PM EST [facility] Comment: Assay cutoff 25 ng/mL Semi-quantitative assay for screening purposes only. Unconfirmed screening result should not be used for non-medical purposes. *ALTERNATE METHOD CONFIRMATION DONE UPON REQUEST ONLY* Urine Urine specimen obtained by clean catch procedure / Unknown Non-blood Collection / Unknown 08/18/2024 6:53 PM EST 08/18/2024 7:07 PM EST us He Downs MD LAB URINE ORDERABLES Final Res ult Performing Organization Address [facility]/ZIP Co de Phone Number [facility] [address] [place] [address], [place] [phone] * Ethanol (08/18/2024 6:53 PM EST) Only the most recent of2 resultswithin the time period is included. Ethanol Level <3 0 - 10 mg/dL LAB CHEMISTRY METHOD 08/18/2024 7:36 PM EST [facility] Blood Venous blood specimen / Unknown Venipuncture / Unknown 08/18/2024 6:53 PM EST 08/18/2024 7:08 PM EST us He Downs MD LAB BLOOD ORDERABLES Final Res ult Performing Organization Address [facility] de Phone Number [facility] [address] [place] [address], [place] [phone] * (ABNORMAL) Acetaminophen level (08/18/2024 6:53 PM EST) Only the most recent of2 resultswithin the time period is included. Acetaminophen Level <2.0(L) 10.0 - 30.0 mcg/mL LAB CHEMISTRY METHOD 08/18/2024 7:38 PM EST [facility] Blood Venous blood specimen / Unknown Venipuncture / Unknown 08/18/2024 6:53 PM EST 08/18/2024 7:08 PM EST us He Downs MD LAB BLOOD ORDERABLES Final Res ult Performing Organization Address [facility] Co de Phone Number [facility] [address] [place] [address], [place] [phone] * (ABNORMAL) Salicylate level (08/18/2024 6:53 PM EST) Only the most recent of2 resultswithin the time period is included. Salicylate Level <1.7(L) 2.0 - 29.0 mg/dL LAB CHEMISTRY METHOD 08/18/2024 7:38 PM [facility] Blood Venous blood specimen / Unknown Venipuncture / Unknown 08/18/2024 6:53 PM EST 08/18/2024 7:08 PM EST He Downs MD LAB BLOOD ORDERABLES Final Res ult [facility] [address] [place] [address], * Comprehensive metabolic panel (08/18/2024 6:53 PM EST) Only the most recent of2 resultswithin the time period is included. Sodium 136 133 - 145 mmol/L LAB CHEMISTRY METHOD 08/18/2024 7:38 PM [facility] Potassium 4.0 3.5 - 5.5 mmol/L LAB CHEMISTRY METHOD 08/18/2024 7:38 PM [facility] Comment:Hemolysis present Chloride 105 96 - 110 mmol/L LAB CHEMISTRY METHOD 08/18/2024 7:38 PM [facility] CO2 23 21 - 32 mmol/L LAB CHEMISTRY METHOD 08/18/2024 7:38 PM [facility] Anion Gap 8 3 - 11 LAB CHEMISTRY METHOD 08/18/2024 7:38 PM [facility] Glucose 90 70 - 100 mg/dL LAB CHEMISTRY METHOD 08/18/2024 7:38 PM [facility] BUN 16 5 - 25 mg/dL LAB CHEMISTRY METHOD 08/18/2024 7:38 PM [facility] Creatinine 0.76 0.50 - 1.10 mg/dL LAB CHEMISTRY METHOD 08/18/2024 7:38 PM EST [facility] eGFR 112 >=60 mL/min/1. 73m2 LAB CHEMISTRY METHOD 08/18/2024 7:38 PM [facility] Comment:Calculation based on the??Chronic Kidney Disease Epidemiology Collaboration (CKD-EPI) equation refit??without adjustment for race. BUN/Creatinine Ratio 21.1 LAB CHEMISTRY METHOD 08/18/2024 7:38 PM [facility] Calcium 8.9 8.5 - 10.5 mg/dL LAB CHEMISTRY METHOD 08/18/2024 7:38 PM [facility] AST (SGOT) 19 10 - 42 unit/L LAB CHEMISTRY METHOD 08/18/2024 7:38 PM [facility] ALT (SGPT) 30 10 - 60 unit/L LAB CHEMISTRY METHOD 08/18/2024 7:38 PM [facility] Alkaline Phosphatase 78 42 - 121 unit/L LAB CHEMISTRY METHOD 08/18/2024 7:38 PM [facility] Total Protein 6.5 6.0 - 8.0 g/dL LAB CHEMISTRY METHOD 08/18/2024 7:38 PM [facility] Albumin 3.7 3.2 - 5.0 g/dL LAB CHEMISTRY METHOD 08/18/2024 7:38 PM [facility] Total Bilirubin 0.2 0.0 - 1.4 mg/dL LAB CHEMISTRY METHOD 08/18/2024 7:38 PM [facility] Blood Venous blood specimen / Unknown Venipuncture / Unknown 08/18/2024 6:53 PM EST 08/18/2024 7:08 PM EST us He Downs MD LAB BLOOD ORDERABLES Final Res ult [facility] [address] [place] [address], * POC , urine manually resulted (07/20/2024 7:49 PM EST) Only the most recent of2 resultswithin the time period is included. HCG, Ur POC Negative Negative POC hCG Int QC Pass? Yes Yes Urine Urine specimen obtained by clean catch procedure / Unknown 07/20/2024 7:49 PM EST Dallas Negrete MD POINT OF CARE TEST ENTER/ED IT ORDERABLES Final Result * ECG-Annotated (07/20/2024) us Provider Onbase ECG ORDERABLES Final Result from Last 3 Months Insurance [employer] Care Teams Phone Engineer Relationship Specialty Start Date End Date Physician, No Pcp PCP - General 07/20/24
--- OUTSIDE RECORDS SUMMARY | 2024-08-19 19:37 | XMS_ITS | Patient Health Record ---
Author Organization [facility] Address [address] [place] [address] Care Team Providers Care Noodle Maker Name Role Phone Roxy Banuelos Unavailable [phone] Allergies Allergen (clinical drug ingredient) Drug/Non Drug Allergy documented on EMR Reaction Allergy Type Onset Date Status Substance with sulfonamide structure and antibacterial mechanism of action (substance) Sulfa Antibiotics Unknown Drug Allergy Active Reason For Referral No Information Medications Medication SIG (Take, Route, Frequency, Duration) Notes Start Date End Date Status Abilify Active Fish Oil 1000 MG 1 capsule [...] 1 tablet Orally Twice a day Active Social History Tobacco Use: Social History [...] W/U Status Risk Notes Problem Plantar wart (56660620) Plantar wart (B07.0) Active confirmed Plan Of Treatment Pending Test Test Name Order Date [id number] Destruction, 1-14 02/01/2022 [id number] Destruction, 15 OR MORE 10/10 Insurance Providers Payer Name Payer Address Payer Phone Subscriber Number Group Number Insured Name Patient Relationship to Insured Coverage Start Date Coverage End Date [employer] [address] [place] [phone] [id number] Sylvie Rocha Child - Insured has Financial Responsibility Medical (General) History Medical History History ICD Code covid-19 Depression Surgical History Surgery Date(Month/Year) Ear tube Placement 2008
--- OUTSIDE RECORDS SUMMARY | 2024-08-19 19:37 | XMS_ITS | Encounter Summary ---
Author Organization [facility] Address [address] [place] [address] Care Team Providers Care Car Record Clerk Name Role Phone Physician, No Pcp Primary Care Provider Unavaila ble Reason for Visit * Reason Comments Suicidal BIBA from home carine nt Took 15-20 ibu at 4pm. EMS stated asked multiple times if she was trying to kill her self she reported yes EMS stated Denies visual and auditory hallucinations Encounter Details Date Type Department Care Team (Late st Contact Info) Description 08/18/2024 6:28 PM EST - 08/19/2024 4:52 PM EST Emergency [facility] Emergency [address] [place] [address] He Downs MD [address] [place] [address] Daily Potter MD [address] [place] [address] Alex Joyner MD [address] [place] [address] Audi Hagen MD [address] [place] [address] Depression, unspecified depression type (Primary Dx); Moderate episode of recurrent major depressive disorder ([facility]/HCC) Discharge Disposition: Psychiatric Hospital Social History Tobacco [...] Mass Index 28.34 08/18/2024 7:10 PM EST documented in this encounter Functional Status * Are you deaf or do you have serious difficulty hearing? Answer Date of Assessment Author No 08/19/2024 1:43 AM Rian Ruggeiro RN * Are you blind or do you have serious difficulty seeing, even when wearing glasses? Answer Date of Assessment Author No 08/19/2024 1:43 AM Rian Ruggiero RN * Do you have serious difficulty walking or climbing stairs? Answer Date of Assessment Author No 08/19/2024 1:43 AM Rian Ruggiero RN * Do you have serious difficulty dressing or bathing? Answer Date of Assessment Author No 08/19/2024 1:43 AM Rian Ruggiero RN * Because of a physical, mental, or emotional condition, do you have serious difficulty doing errandsalone such as visiting the doctor? Answer Date of Assessment Author No 08/19/2024 1:43 AM Rian Ruggiero RN documented as of this encounter Mental Status * Because of a physical, mental, or emotional condition, do you have serious difficulty concentrating, remembering, or making decisions? (5 years old or older) Answer Entry Date Author No 08/19/2024 1:43 AM EST Martin Muhammad RN documented in this encounter Medications at Time of Discharge buPROPion XL (WELLBUTRIN XL) 300 mg 24 hr tablet Take 1 tablet (300 mg total) by mouth daily. 08/04/2020 clomiPRAMINE (ANAFRANIL) 50 mg capsule Take 1 capsule (50 mg total) by mouth daily. 08/10/2024 DULoxetine (CYMBALTA) [address] capsule Take [...] or split. Max Daily Amount: 36 mg norethindrone-eth inyl estradiol (FEMHRT 06/20) 1-5 mg-mcg per tablet Take 1 tablet by mouth 1 (one) time each day. documented as of this encounter Discharge Disposition Disposition Code Departure Means Destination Comment [facility] M-3 documented in this encounter Progress Notes * Alex Joyner MD - 08/19/2024 3:50 PM EST Twyla Banks No acute complaints. Patient presented for suicidal ideation, overdose on ibuprofen. Patient is pending psychiatric placement. Signout given to Dr. Hagen. * Elena Briscoe - 08/19/2024 11:19 AM EST Patient accepted to [facility], unit M[address]. By Dr Paolo Garcia for today 08/19/24; time to be determined during nurse to nurse. * Martin Muhammad RN - 08/18/2024 10:00 PM EST Sister allowed to visit was here for about a half hour - mom came in after that was allowed to stayuntil now as Crisis wanted to speak with her as well - Mom is leaving at this time and is aware patient will be a bed search - mom will look into patient going to [facility] in [place] - Crisis aware. Mom doesn't know much about [facility], has a friend who told her about it - is aware Crisis team will be looking for a bed as well. * Martin Muhammad RN - 08/18/2024 8:20 PM EST Medically cleared at this time - labs look good - negative - awaiting crisis eval. * Phylicia West RN - 08/18/2024 6:46 PM EST BIBA from home patient Took 15-20 ibu at 4pm. EMS stated asked multiple times if she was trying tokill her self she reported yes EMS stated Denies visual and auditory hallucinations documented in this encounter Consult Notes * Morris Murdock - 08/19/2024 11:03 AM EST Images from the original note were not included. Behavioral Health Services - Mental Status Update Important times Time assessment started: 10:30 Time of disposition: 11:00 Location: Emergency Room (ER) Consulted case with: Donna Isaac LCSW Reason for Consultation / Presenting Problem: Twyla Banks is being seen today for a 24 hour re-evaluation due to their state wide bed search being exhausted. Patient struggled with engagement regarding follow-up questions, giving yes or no answers. She denied current SI/HI/AH/VH. Patientstated that she did take the ibuprofen yesterday in an attempt to harm herself and expressed understanding regarding her going inpatient. She was able to explore coping skills and safety planning fordischarge from inpatient, identifying that she feels staying with her grandparents and keeping her medications locked up will be beneficial. Collaterals, contact information, and engagement level: Therapist: Deedee private therapist Psychiatrist: [facility], Dr Gil PCP: None reported Family: Mother, Neli Rocha: Other: None reported Mental Status Speech: WNL Eye Contact: WNL Motor Activity: Slowed Mood: Neutral Affect: Flat Sleep: WNL Appetite: WNL Memory: WNL Attention / Concentration: WNL Behavior: Guarded and Calm Hallucinations: None Delusions: None Thought Content: WNL SI: Denied HI: Denied Thought Process: WNL Orientation Impairment: None Insight: Fair Judgment: Poor Impulse Control: Poor Medications: Scheduled Meds: ARIPiprazole, 5 mg, oral, Daily buPROPion XL, 300 mg, oral, Daily clomiPRAMINE, 50 mg, oral, Daily cloNIDine, 0.1 mg, oral, BID DULoxetine, 120 mg, oral, Daily DULoxetine, 120 mg, oral, Daily LORazepam, 0.5 mg, oral, Daily methylphenidate, 36 mg, oral, q AM traZODone, 50 mg, oral, Nightly Continuous Infusions: PRN Meds: Patient reported to being medication compliant. Risk Assessment: Self-Harm: None Suicidal Behavior: Past Homicidal Behavior: None Physical Assault: None Physical Aggression: None Property Damage: None Verbal Aggression: None Family history of suicide: None reported Protective Factors: Patient has familial support. Patient is medication compliant. Patient has outpatient mental health supports. Patient appears to be aware of her mental health struggles. Risk Factors: Patient took ibuprofen yesterday in an attempt to harm herself and was recently released from inpatient for OD. Patient reported to struggling with intrusive thoughts. Suicide Risk: Based on patient's history and current presentation, their level of risk for intentional lethal harm is considered High Interventions: Risk/crisis assessment, active listening, empathetic listening, safety planning, coping skills Response to interventions: Patient was cooperative and aligned with answering S's questions. She presented as guarded and struggled with follow-up questions. DSM-5TR Diagnosis: F33.1 Major depressive disorder, recurrent, moderate Plan: Based on the information above, patient would continue to benefit from an involuntary inpatient psychiatric admission for safety and containment, mood stabilization, medication evaluation, therapeutic milieu, and development of coping skills. Upon discharge, patient would benefit from coordinating with her outpatient mental health supports and meeting with them to develop a termite control servicer community safety plan. Recommendations were discussed with requesting provider. It was a pleasure to assist Twyla Banks here at [facility]. This report is written and finalized by: Morris Murdock Behavioral Health Specialist [facility] (Tel): [phone] / : [phone] * Weston Aponte - 08/18/2024 9:48 PM ESTAssociated Order(s): IP CONSULT TO SUPERVISOR LIQUEFACTION Images from the original note were not included. Behavioral Health Services - Crisis Assessment Important times Time of arrival: 6:25PM--08/18/2024 Time of referral: 7:52PM--08/18/2024 Time of readiness: 8:30PM--08/18/2024 Time assessment started: 8:45PM--08/18/2024 Time of disposition: 9:30PM--08/18/2024 Location: ED, Room-H Consulted case with: Donna Isaac LCSW Reason for Consultation / Presenting Problem: Twyla Banks is being seen today for a consultive service at the request of He Downs MD to assess risk and identify appropriate level of care. The patient was picked up from home because she took 15-20 Ibuprofen at 4pm this afternoon. The EMS stated that the patient was asked multiple times if she was trying to kill herself and she reported yes. The patient has a long history of depression and admissions for suicidal ideation. She states that she has been depressed and this was an attempt to harm herself. The patient also visited [facility] ED on 07/20/2024 and self-reported that she intentionally overdosed onclonidine approximately 10 tablets of 0.1 mg. On 06/23/2023 she was presented to the emergency department for evaluation of accidental overdose. She then noted that she accidentally took an extra 300mg bupropion xr and 120mg of duloxetine, in addition to her normal nighttime 5mg ability and 50mg trazodone. Her mother apparently called her local poison control, and they advised the patient go to the emergency department due to risk for seizure. Her mother was present for the entire assessment, she reported that the patient since 11 years old her personality changed. She became more quiet than usual and if she is doing something, she would stop in the middle of it and freeze. Mother and the patient both reported that her negative thinking to overdose herself or thinking of harming herself is due to her Nash Syndrome, depression and anxi ety. History of Present Illness: Twyla is a 24 y.o. female with Chief Complaint Patient presents with Suicidal BIBA from home patient Took 15-20 ibu at 4pm. EMS stated asked multiple times if she was trying tokill her self she reported yes EMS stated Denies visual and auditory hallucinations Social/Educational History: Guardian: Self Status: N/A State Agency Involvement: None Wilfredo's Order: None Marital Status: Not discussed Alternative Placement Details: None Living Situation for patient: Patient lives with her mom and two dogs. Friendships/Family/Social Peer Support/Relationships: Patient mentioned her mom a good relationship, and friends. Highest level of education: Associate degree. Occupation: Not working currently. Employment/Extracurricular Activities/Hobbies: Currently blount she worried about her health. Limitations of Daily Activities: None Strengths/Supports: The patient able to advocate for herself. Collaterals, contact information, and engagement level: Therapist: Deedee; a private therapist. Psychiatrist: Dr. Gil at [facility] PCP: No. Family: Neli Garnica: [phone] Other: N/A Mental Status Speech: WNL Eye Contact: WNL Motor Activity: Slowed Mood: WNL Affect: Flat Sleep: Poor Appetite: WNL Memory: WNL Attention / Concentration: WNL Behavior: Cooperative Appearance: Hallucinations: None Delusions: None Thought Content: WNL SI: Presence HI: Denied Thought Process: WNL Orientation Impairment: None Insight: WNL Judgment: WNL Impulse Control: She has impulsive behavior Substance Use History (Including family history): None reported Utox Results: All negative. Substance Use Treatment History: None reported. Mental Health Treatment History: Outpatient Mental Health Treatment: The patient has a multiple admissions for the same as today. Previous or Current Psychological Diagnosis: Nash Syndrome, Anxiety, depression, ADHD and OCD Prior Psychiatric Hospitalizations/Residential Treatment Facilities: The patient has a history of several times of admissions to hospital and other psych- facilities due to overdosing and suicidal ideation. Other Comments Regarding Mental Health Treatment History: N/A Mental Health Concerns in Family: The mother reported that her has schizophrenia and grandmother was mentally instable but has no diagnosis. Trauma History: Twyla disclosed that there was trauma history in high school and that she felt as if she was going through psychosis. Medications: Scheduled Meds: Wellbutrin 450 mg Duloxetine 120 MG Clonidine 0,1 MG Trazodone 100 MG Control Anafranil 50 MG Bupropion 300 MG Continuous Infusions: N/A PRN Meds: N/A Risk Assessment: Self-Harm: Current Suicidal Behavior: Current Homicidal Behavior: None Physical Assault: None Physical Aggression: None Property Damage: None Verbal Aggression: None Family history of suicide: None currently reported. Protective Factors: Safe housing, mother and friends support, outpatient providers, help seeking. Risk Factors: Multiple admissions, history of SI, history of overdosing, diagnosed with Nash Syndrome. Suicide Risk: Based on patient's history and current presentation, their level of risk for intentional lethal harm is considered Moderate to high. Interventions: Risk assessment Motivational interviewing Empathetic listening Response to interventions: Patient was engaging to the best of his ability. DSM-5TR Diagnosis: F33.1 Major depressive disorder, recurrent, moderate. Plan: 24 years old White female who presents with yet another medication overdose, it added to 4 times for the last two years of the same; thought of SI and overdosing on her medications. It was suggested to the mother to locked up the patient's medication and making sure she has no access to her medication only giving her the medication to use as scheduled and watch her taking them. Based on the above information, it is my clinical opinion that Twyla would benefit from an inpatient psychiatric admission for safety and containment, mood stabilization, medication evaluation, diagnostic clarification, and participation in a therapeutic milieu. In addition, she would learn abouther mental health symptoms and develop adaptive coping skills for her depression and suicidal ideation. Recommendations were discussed with requesting provider. It was a pleasure to assist Twyla Banks here at [facility]. This report is written and finalized by: TATIANA Delgado Behavioral Health Specialist [facility] (Tel): [phone] / : [phone] documented in this encounter Plan of Treatment Pending Results Name Type Priority Associated Diagnoses Date /Time POC , urine manually resulted Point of Care Testing STAT 08/18/2024 8:18 PM EST Scheduled Orders Name Type Priority Associated Diagnoses Orde r Schedule POC , urine manually resulted Point of Care Testing STAT Once for 1 Occurrences starting 08/18/2024 until 08/18/2024 documented as of this encounter Procedures Procedure Name Priority Date/Time Associated Diagnosis Comments ECG 12-LEAD STAT 08/19/2024 11:46 AM EST DRUG ABUSE SCREEN 8A PANEL, URINE STAT 08/18/2024 6:53 PM EST BUPRENORPHINE SCREEN, URINE STAT 08/18/2024 6:53 PM EST METHADONE SCREEN, URINE STAT 08/18/2024 6:53 PM EST CBC WITH AUTO DIFFERENTIAL STAT 08/18/2024 6:53 PM EST PHENCYCLIDINE, URINE STAT 08/18/2024 6:53 PM EST CBC AND DIFFERENTIAL STAT 08/18/2024 6:53 PM EST ETHANOL STAT 08/18/2024 6:53 PM EST ACETAMINOPHEN LEVEL STAT 08/18/2024 6 :53 PM EST SALICYLATE LEVEL STAT 08/18/2024 6:53 PM EST COMPREHENSIVE METABOLIC PANEL STAT 08/18/2024 6:53 PM EST documented in this encounter Results * ECG 12 lead (08/19/2024 11:46 AM EST) Ventricular Rate ECG 101 BPM GEMUSE Atrial Rate 101 BPM GEMUSE P-R Interval 132 ms GEMUSE QRS Duration 84 ms GEMUSE Q-T Interval 356 ms GEMUSE QTc 461 ms GEMUSE P Wave [place] 74 degrees GEMUSE R [place] 68 degrees GEMUSE T [place] 66 degrees GEMUSE ECG Interpretation Sinus tachycardia Otherwise normal ECG When compared with ECG of 20-JUL-2024 23:05, No significant change was found Confirmed by Maximilian SEWELL YUFENG ([id number]) on 08/19/2024 5:41:05 PM GEMUSE 08/19/2024 11:4 6 AM EST 08/19/2024 5:41 PM EST Alex Joyner MD ECG ORDERABLES Final Result GEMUSE * CBC auto differential (08/18/2024 6:53 PM EST) Pathologist [facility] WBC 8.7 4.8 - 10.8 K/mcL LAB HEMETOLOGY METHOD 08/18/2024 7:12 PM [facility] RBC 4.40 3.80 - 4.80 M/mcL LAB HEMETOLOGY METHOD 08/18/2024 7:12 PM [facility] Hemoglobin 13.8 11.5 - 16.0 g/dL LAB HEMETOLOGY METHOD 08/18/2024 7:12 PM [facility] Hematocrit 40.1 35.0 - 47.0 % LAB HEMETOLOGY METHOD 08/18/2024 7:12 PM [facility] MCV 92.0 79.0 - 98.0 FL LAB HEMETOLOGY METHOD 08/18/2024 7:12 PM [facility] MCH 31.7 27.0 - 32.0 pcg LAB HEMETOLOGY METHOD 08/18/2024 7:12 PM [facility] MCHC 34.4 32.0 - 37.0 g/dL LAB HEMETOLOGY METHOD 08/18/2024 7:12 PM [facility] RDW 11.4 11.0 - 15.0 % LAB HEMETOLOGY METHOD 08/18/2024 7:12 PM [facility] Platelets 268 130 - 400 K/mcL LAB HEMETOLOGY METHOD 08/18/2024 7:12 PM [facility] MPV 10.6 7.0 - 11.0 FL LAB HEMETOLOGY METHOD 08/18/2024 7:12 PM [facility] NRBC 0.0 <1.0 % LAB HEMETOLOGY METHOD 08/18/2024 7:12 PM [facility] NRBC Absolute 0.00 <0.10 K/mcL LAB HEMETOLOGY METHOD 08/18/2024 7:12 PM [facility] Neutrophils Relative 53.7 % LAB HEMETOLOGY METHOD 08/18/2024 7:12 PM [facility] Lymphocytes Relative 32.3 % LAB HEMETOLOGY METHOD 08/18/2024 7:12 PM [facility] Monocytes Relative 10.9 % LAB HEMETOLOGY METHOD 08/18/2024 7:12 PM [facility] Eosinophils Relative 2.3 % LAB HEMETOLOGY METHOD 08/18/2024 7:12 PM [facility] Basophils Relative 0.5 % LAB HEMETOLOGY METHOD 08/18/2024 7:12 PM [facility] Immature Granulocytes Relative 0.3 % LAB HEMETOLOGY METHOD 08/18/2024 7:[address] [facility] Neutrophils Absolute 4.66 1.50 - 7.00 K/mcL LAB HEMETOLOGY METHOD 08/18/2024 7:12 PM [facility] Lymphocytes Absolute 2.81 1.00 - 5.00 K/mcL LAB HEMETOLOGY METHOD 08/18/2024 7:12 PM [facility] Monocytes Absolute 0.95 0.20 - 1.00 K/mcL LAB HEMETOLOGY METHOD 08/18/2024 7:12 PM [facility] Eosinophils Absolute 0.20 0.00 - 0.50 K/mcL LAB HEMETOLOGY METHOD 08/18/2024 7:12 PM [facility] Basophils Absolute 0.04 0.00 - 0.20 K/mcL LAB HEMETOLOGY METHOD 08/18/2024 7:12 PM [facility] Immature Granulocytes Absolute 0.03 0.00 - 0.03 K/mcL LAB HEMETOLOGY METHOD 08/18/2024 7:12 PM [facility] Blood Venous blood specimen / Unknown Venipuncture / Unknown 08/18/2024 6:53 PM EST 08/18/2024 7:07 PM EST He Downs MD LAB BLOOD ORDERABLES Final Res ult [facility] [address] [place] [address], * Methadone, urine (08/18/2024 6:53 PM EST) Methadone Screen, Urine Negative Negative LAB CHEMISTRY METHOD 08/18/2024 7:43 PM [facility] Comment: Assay cutoff 300 ng/mL [...] ORDERABLES Final Res ult Performing Organization Address [facility]/ZIP Co de Phone Number [facility] [address] [place] [address], [place] [phone] * Phencyclidine, urine (08/18/2024 6:53 PM EST) PCP Scrn, Ur Negative Negative LAB CHEMISTRY METHOD 08/18/2024 7:[address] [facility] Comment: Assay cutoff 25 ng/mL [...] ORDERABLES Final Res ult Performing Organization Address City/[facility]/ZIP Co de Phone Number [facility] [address] [place] [address], [place] [phone] * Buprenorphine screen, urine (08/18/2024 6:53 PM EST) Buprenorphine Screen Urine Negative Negative LAB CHEMISTRY METHOD 08/18/2024 7:[address] [facility] Urine Urine specimen obtained by clean catch procedure / Unknown Non-blood Collection / Unknown 08/18/2024 6:53 PM EST 08/18/2024 7:[address] [facility] - 08/18/2024 7:43 PM EST Assay cutoff 5 ng/mL Semi-quantitative assay for screening purposes only. Unconfirmed screening result should not be used for non-medical purposes. *ALTERNATE METHOD CONFIRMATION DONE UPON REQUEST ONLY* us He Downs MD LAB URINE ORDERABLES Final Res ult [facility] [address] [place] [address], * Drug abuse screen 8a panel, urine (08/18/2024 6:53 PM EST) Amphetamine Screen, Ur Negative Negative LAB CHEMISTRY METHOD 08/18/2024 7:43 PM [facility] Comment:Certain OTC medicati ons containing ephedrine, phenylephrine, pseudoephedrine and phenylpropanolamine can cause false positive results. Barbiturate Screen, Ur Negative Negative LAB CHEMISTRY METHOD 08/18/2024 7:43 PM [facility] Benzodiazepine Screen, Ur Negative Negative LAB CHEMISTRY METHOD 08/18/2024 7:43 PM [facility] Cocaine Screen, Ur Negative Negative LAB CHEMISTRY METHOD 08/18/2024 7:[address] [facility] Opiate Screen, Ur Negative Negative LAB CHEMISTRY METHOD 08/18/2024 7:43 PM [facility] Cannabinoid (THC) Screen, Ur Negative Negative LAB CHEMISTRY METHOD 08/18/2024 7:43 PM [facility] Comment:Specimens from patie nts taking pantoprazole sodium (Protonix) have been shown to produce false positive results. Oxycodone Screen, Ur Negative Negative LAB CHEMISTRY METHOD 08/18/2024 7:[address] [facility] Fentanyl, Ur Negative Negative LAB CHEMISTRY METHOD 08/18/2024 7:43 PM [facility] Urine Urine specimen obtained by clean catch procedure / Unknown Non-blood Collection / Unknown 08/18/2024 6:53 PM EST 08/18/2024 7:[address] [facility] - 08/18/2024 7:43 PM EST [...] ORDERABLES Final Res ult Performing Organization Address [facility] de Phone Number [facility] [address] [place] [address], [place] [phone] * (ABNORMAL) Salicylate level (08/18/2024 6:53 PM EST) Salicylate Level <1.7(L) 2.0 - 29.0 mg/dL LAB CHEMISTRY METHOD 08/18/2024 7:[address] [facility] Blood Venous blood specimen / Unknown Venipuncture / Unknown 08/18/2024 6:53 PM EST 08/18/2024 7:08 PM EST He Downs MD LAB BLOOD ORDERABLES Final Res ult Performing Organization Address [facility] de Phone Number [facility] [address] [place] [address], [place] [phone] * (ABNORMAL) Acetaminophen level (08/18/2024 6:53 PM EST) Acetaminophen Level <2.0(L) 10.0 - 30.0 mcg/mL LAB CHEMISTRY METHOD 08/18/2024 7:[address] [facility] Blood Venous blood specimen / Unknown Venipuncture / Unknown 08/18/2024 6:53 PM EST 08/18/2024 7:08 PM EST us He Downs MD LAB BLOOD ORDERABLES Final Res ult Performing Organization Address [facility]/ZIP Co de Phone Number [facility] [address] [place] [address], [place] [phone] * Ethanol (08/18/2024 6:53 PM EST) Ethanol Level <3 0 - 10 mg/dL LAB CHEMISTRY METHOD 08/18/2024 7:36 PM [facility] Blood Venous blood specimen / Unknown Venipuncture / Unknown 08/18/2024 6:53 PM EST 08/18/2024 7:08 PM EST us He Downs MD LAB BLOOD ORDERABLES Final Res ult Performing Organization Address [facility] de Phone Number [facility] [address] [place] [address], [place] [phone] * Comprehensive metabolic panel (08/18/2024 6:53 PM EST) Pathologist [facility] Sodium 136 133 - 145 mmol/L LAB CHEMISTRY METHOD 08/18/2024 7:38 PM [facility] Potassium 4.0 3.5 - 5.5 mmol/L LAB CHEMISTRY METHOD 08/18/2024 7:38 PM [facility] Comment:Hemolysis present Chloride 105 96 - 110 mmol/L LAB CHEMISTRY METHOD 08/18/2024 7:38 PM [facility] CO2 23 21 - 32 mmol/L LAB CHEMISTRY METHOD 08/18/2024 7:38 PM [facility] Anion Gap 8 3 - 11 LAB CHEMISTRY METHOD 08/18/2024 7:38 PM [facility] Glucose 90 70 - 100 mg/dL LAB CHEMISTRY METHOD 08/18/2024 7:38 PM [facility] BUN 16 5 - 25 mg/dL LAB CHEMISTRY METHOD 08/18/2024 7:38 PM [facility] Creatinine 0.76 0.50 - 1.10 mg/dL LAB CHEMISTRY METHOD 08/18/2024 7:38 PM [facility] eGFR 112 >=60 mL/min/1. 73m2 LAB CHEMISTRY METHOD 08/18/2024 7:38 PM [facility] Comment:Calculation based on the??Chronic Kidney Disease Epidemiology Collaboration (CKD-EPI) equation refit??without adjustment for race. BUN/Creatinine Ratio 21.1 LAB CHEMISTRY METHOD 08/18/2024 7:38 PM [facility] Calcium 8.9 8.5 - 10.5 mg/dL LAB CHEMISTRY METHOD 08/18/2024 7:38 PM [facility] AST (SGOT) 19 10 - 42 unit/L LAB CHEMISTRY METHOD 08/18/2024 7:38 PM [facility] ALT (SGPT) 30 10 - 60 unit/L LAB CHEMISTRY METHOD 08/18/2024 7:38 PM [facility] Alkaline Phosphatase 78 42 - 121 unit/L LAB CHEMISTRY METHOD 08/18/2024 7:38 PM [facility] Total Protein 6.5 6.0 - 8.0 g/dL LAB CHEMISTRY METHOD 08/18/2024 7:38 PM [facility] Albumin 3.7 3.2 - 5.0 g/dL LAB CHEMISTRY METHOD 08/18/2024 7:38 PM [facility] Total Bilirubin 0.2 0.0 - 1.4 mg/dL LAB CHEMISTRY METHOD 08/18/2024 7:38 PM [facility] Blood Venous blood specimen / Unknown Venipuncture / Unknown 08/18/2024 6:53 PM EST 08/18/2024 7:08 PM EST He Downs MD LAB BLOOD ORDERABLES Final Res ult REJI ASCENCIO RI ([facility]) [facility] [address] [place] [address], documented in this encounter Visit Diagnoses Diagnosis Depression, unspecified depression type- Primary Moderate episode of recurrent major depressive disorder (CMS/HCC) documented in this encounter Administered Medications Inactive Administered Medications - up to 3 most recent administrations Medication Order MAR Action Action Date Dose Rate Site ARIPiprazole (ABILIFY) tablet 5 mg 5 mg, oral, Daily, First dose on Fri08/19/24 at 0900 Given 08/19/2024 8:52 AM EST 5 mg buPROPion XL (WELLBUTRIN XL) 24 hr tablet 300 mg 300 mg, oral, Daily, First dose on Fri08/19/24 at 0900, Do not crush, chew, or split. Given 08/19/2024 8:52 AM EST 300 mg clomiPRAMINE (ANAFRANIL) capsule 50 mg 50 mg, oral, Daily, First dose on Fri08/19/24 at 0900 Given 08/19/2024 8:52 AM EST 50 mg cloNIDine (CATAPRES) tablet 0.1 mg 0.1 mg, oral, 2 times daily, First dose on Fri08/18/24 at 2301 Given 08/19/2024 8:52 AM EST 0.1 mg Given 08/19/2024 12:14 AM EST 0.1 mg DULoxetine (CYMBALTA) DR capsule 120 mg 120 mg, oral, Daily, First dose on Fri08/19/24 at 0900, Do not crush or chew. Given 08/19/2024 8:51 AM EST 120 mg LORazepam (ATIVAN) tablet 0.5 mg 0.5 mg, oral, Daily, First dose on Fri08/19/24 at 0900 Given 08/19/2024 8:51 AM EST 0.5 mg methylphenidate ER tablet 36 mg 36 mg, oral, Every morning, First dose on Fri08/19/24 at 0700, Do not crush, chew, or split. Given 08/19/2024 8:51 AM EST 36 mg traZODone (DESYREL) tablet 50 mg 50 mg, oral, Nightly, First dose on Fri08/18/24 at 2301 Given 08/19/2024 12:15 AM EST 50 mg documented in this encounter Discontinued Medications Medication Sig Discontinue Reason Start Date End Da te buPROPion SR (WELLBUTRIN SR) 150 mg 12 hr tablet Take 1 tablet (150 mg total) by mouth 1 (one) time each day. Do not crush, chew, or split. Duplicate order 08/18/2024 documented as of this encounter Historical Medications * This list may reflect changes made after this encounter. DULoxetine (CYMBALTA) [address] capsule Take 2 capsules (120 mg total) by mouth daily. 06/01/2024 buPROPion XL (WELLBUTRIN XL) 300 mg 24 hr tablet Take 1 tablet (300 mg total) by mouth daily. 08/04/2020 traZODone (DESYREL) 50 mg tablet Take 1-2 tablets (50-100 mg total) by mouth daily. 09/12/2023 clomiPRAMINE (ANAFRANIL) 50 mg capsule Take 1 capsule (50 mg total) by mouth daily. 08/10/2024 added in this encounter Active and Recently Administered Medications Times are shown in EST. Scheduled Medication Order 08/17/2024 08/18/2024 08/19/2024 ARIPiprazole (ABILIFY) tablet 5 mg 5 mg, oral, Daily, First dose on Fri08/19/24 at 0900 0852 (Given - Provid er: Alisha Tena RN) buPROPion XL (WELLBUTRIN XL) 24 hr tablet 300 mg 300 mg, oral, Daily, First dose on Fri08/19/24 at 0900, Do not crush, chew, or split. 0852 (Given - Provid er: Alisha Tena RN) clomiPRAMINE (ANAFRANIL) capsule 50 mg 50 mg, oral, Daily, First dose on Fri08/19/24 at 0900 0852 (Given - Provid er: Alisha Tena RN) cloNIDine (CATAPRES) tablet 0.1 mg 0.1 mg, oral, 2 times daily, First dose on Fri08/18/24 at 2301 0014 (Given - Provid er: Martin Muhammad RN)0852 (Given - Provider: Alisha Tena RN) DULoxetine (CYMBALTA) DR capsule 120 mg 120 mg, oral, Daily, First dose on Shanelle 08/19/24 at 0900, Do not crush or chew. 0851 (Given - Provid er: Alisha Tena RN) DULoxetine (CYMBALTA) DR capsule 120 mg 120 mg, oral, Daily, First dose on Fri08/18/24 at 2301, Do not crush or chew. 0015 (Not Given - Pr ovider: Martin Muhammad RN - Reason: Other - Comment: took in am today) LORazepam (ATIVAN) tablet 0.5 mg 0.5 mg, oral, Daily, First dose on Shanelle 08/19/24 at 0900 0851 (Given - Provid er: Alisha Tena RN) methylphenidate ER tablet 36 mg 36 mg, oral, Every morning, First dose on Shanelle 08/19/24 at 0700, Do not crush, chew, or split. 0851 (Given - Provid er: Alisha Tena RN - Comment: pt refused at 0700) traZODone (DESYREL) tablet 50 mg 50 mg, oral, Nightly, First dose on Fri08/18/24 at 2301 0015 (Given - Provid er: Martin Muhammad RN) documented in this encounter Orders Medications Ordered That Joel ht Not Have Been Administered Count Last Ordered Date First Ordered Date DULoxetine (CYMBALTA) DR capsule 120 mg 1 0 08/18/2024 Consult Count Last Ordered Date First Orde red Date IP CONSULT TO SUPERVISOR LIQUEFACTION 1 08/18/2024 documented in this encounter Care Teams Car Record Clerk Relationship Specialty Start Date End Date Physician, No Pcp PCP - General 07/20/24 documented as of this encounter
[2024-08-19 20:24] VITALS: BP 115/68; PULSE 119; RESP 16; TEMP 36.3; O2SAT 99
[2024-08-19 20:59] LABS: Alanine Aminotransferase 21 U/L (0-31); Albumin Level 3.9 g/dL (3.5-5.0); Anion Gap 12 (12-20); Aspartate Amino Transferase 19 U/L (5-31); Bilirubin Total 0.4 mg/dL (0.0-1.0); Blood Urea Nitrogen 12 mg/dL (9-16); Calcium 9.3 mg/dL (8.4-10.2); Carbon Dioxide 26 mmol/L (22-29); Chloride 106 mmol/L (96-108); Creatinine Clr Calc Pharmacy 101.2; Estimated Glomerular Filt Rate > 60; Glucose Random 95 mg/dL (60-115); Potassium 3.8 mmol/L (3.3-5.1); Sodium 140 mmol/L (135-145); Total Protein 6.7 g/dL (6.5-8.0)
[2024-08-19 21:15] LABS: Alkaline Phosphatase 62 U/L (39-117)
[2024-08-19 22:49] VITALS: BP 99/60; PULSE 95; RESP 16; TEMP 36.7; O2SAT 97
[2024-08-19] MEDS: cloNIDine HCL 0.1 MG TABLET PO (22:57)
[2024-08-19] MEDS: traZODone HCL 100 MG TABLET PO (22:57)
[2024-08-19] MEDS: clomiPRAMINE HCl 25 MG CAPSULE PO (22:57)
[2024-08-20 08:16] VITALS: BP 109/68; PULSE 105; RESP 16; TEMP 36.4; O2SAT 99
[2024-08-20 09:00] LABS: Estimated Average Glucose 97 mg/dL; Total Hemoglobin (HGBA1C) 3374.1015 umol/L
[2024-08-20] MEDS: buPROPion HCl XL 150 MG TAB.ER.24H 450 MG PO (09:25)
[2024-08-20] MEDS: DULoxetine HCl 60 MG CAPSULE.DR 120 MG PO (09:25)
[2024-08-20 09:26] LABS: Cholesterol 211 mg/dL (<200); HDL Cholesterol 75 mg/dL (>40); LDL Cholesterol Calculated 115 mg/dL (<100); Triglycerides 107 mg/dL (<150)
[2024-08-20 09:27] LABS: TSH reflex Free T4 1.54 uIU/mL (0.32-4.0)
--- NOTE | 2024-08-20 10:46 | HO.PSYADMNOT ---
HPI Date of Service: 08/20/24 Chief Complaint: F33.1 Sources of Information: patient interviewed, chart reviewed and crisis/core team assessment reviewed HPI Subjective Notes: Romero Warning and Conditional Voluntary Narrative: Patient is a 24-year-old female with history of MDD, OCD and Nash syndrome, who presented to ER via ambulance after taking 15-20 ibuprofen in a suicide attempt secondary to increased depression. Per crisis report, patient was asked multiple times if she was trying to commit suicide which patient stated, yes. Patient reports having a long history of depression. Patient was recently discharged from on 07/29/2024 with similar presentation. Patient denies substance use. Utox negative for all substances. She reports having outpatient psychiatric providers and being medication. During admission assessment, patient presents alert and oriented x3. Calm and cooperative. Patient reports feeling depressed; patient stated, I felt overwhelmed by my thoughts; that things will not get better and that I'm a bad person. My thoughts tell me I'm a bad person. It's not based off of anything that I've done. It was stupid and impulsive. I need to learn that the moment of stress will pass . Patient reports being medication compliant but does not feel the medications are working well. Patient statedy, I feel like it helps with my depression but not with my obsessive thoughts and the OCD is the main cause of my depression . Patient reports having low anxiety. States she sleeps well at night when taking trazodone. Denies SI/HI/VH/AH. Past Psychiatric History: Outpatient psychiatrist: Danielle Gil ([facility]) Therapist: Deedee Vieira ([place]) hx of SA via medication overdose hx of SIB via cutting in highschool. patient reports this is her second inpatient psychiatric hospitalization. Medical Evaluation Reviewed: Yes [facility] Medical History (Updated 08/20/24 @ 14:29 by Genevieve Copeland NP) Medical clearance for psychiatric admission MDD (major depressive disorder), recurrent severe, without psychosis Family History: Mother: Depression father: alcoholism Sister: Addiction history Social History: graduate with associate's degree Father a year ago July 2023 3 sisters lives at home mom who is supportive Substance History: Denies. U tox negative for all substances. Trauma History: Denies Diagnostics Vital Signs (24Hr): Vital Signs - 24 hr 08/19/24 18:23 08/19/24 20:24 08/19/24 22:49 Temperature 97.3 F 97.4 F 98.0 F Pulse Rate 100 119 H 95 Respiratory Rate 17 16 16 Blood Pressure 121/82 115/68 99/60 Pulse Oximetry 99 99 97 Oxygen Delivery Method Room Air Room Air Room Air 08/20/24 08:16 Temperature 97.5 F Pulse Rate 105 H Respiratory Rate 16 Blood Pressure 109/68 Pulse Oximetry 99 Oxygen Delivery Method Room Air BMI result Body Mass Index 29.0 Labs 08/19/24 20:19 Labs: Laboratory Results - last 48 hr 08/19/24 08/20/24 20:19 08:01 Sodium 140 Potassium 3.8 Chloride 106 Carbon Dioxide 26 Anion Gap 12 BUN 12 Creatinine 0.82 Estim Creat Clear Calc 101.2 Estimated GFR > 60 Random Glucose 95 Estimat Average Glucose 97 Hemoglobin A1c % 5.0 Calcium 9.3 Total Bilirubin 0.4 AST 19 ALT 21 Alkaline Phosphatase 62 Total Protein 6.7 Albumin 3.9 Triglycerides 107 Cholesterol 211 H LDL Cholesterol, Calc 115 H HDL Cholesterol 75 TSH 1.54 Meds/Allergies Meds Home Medications ?Medication ?Instructions ?Recorded ?Confirmed ?Type methylphenidate HCl 36 mg 36 mg PO DAILY 07/22/24 08/19/24 History tablet,extended release 24 hr Fyavolv Control 08/19/24 History clonidine HCl 0.1 mg tablet 0.1 mg PO BID 08/19/24 08/19/24 History lorazepam DAILY PRN Anxiety 08/19/24 History Allergies Allergies Allergy/AdvReac Type Severity Reaction Status Date / Time Sulfa (Sulfonamide Allergy Unknown Verified 07/21/24 20:23 Antibiotics) Mental Status Exam Mental Status Exam Patient Appearance: Well Grooomed Patient Orientation: Person, Place, Time and Situation Level of Consciousness: Awake and Alert Patient Behavior: Appropriate, Cooperative and Good Eye Contact Mood Description: Calm Affect Description: Blunted Ability to Follow Directions: Good Speech Pattern: Clear and Appropriate Memory Description: Intact Hallucinations: None Delusions: Not Present Thought Process: Intact and Goal Oriented Thought Content: positive for Intact Assessment & Plan Assessment & Plan (1) MDD (major depressive disorder), recurrent severe, without psychosis: Status: Acute Code(s): F33.2 - Major depressive disorder, recurrent severe without psychotic features (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 Plan: CV 15 minute safety checks Continue home medications Increase Clomipramine to 50mg PO bedtime Obtain collateral Encourage group Referral for VNA/lockbox Discharge planning Patient educated on: diagnosis, medication risk/benefits and therapeutic strategies Reason for continued inpatient stay Substantial Risk for: harm to self and med/psych decompensation Statement Statement: I have reviewed the history and physical and performed a pertinent examination on my patient. No changes have occurred unless specified. If the History and Physical was not performed prior to admission, the Hospitalist's service will be consulted for completing the admission physical. Time Spent With Patient Time: Total time managing care of this patient today _60___ minutes.
--- NOTE | 2024-08-20 11:21 | P.CONHOSP_ITS ---
History of Present Illness Data of Consult Service Date: 08/20/24 Primary Care Provider: Unknown Physician HPI Reason for consult: Admission H&P Pt is a 24-year-old female with a PMH significant for?Nash syndrome and depression who is admitted to psychiatry unit for increasing depression and suicide attempt at overdosing on home medications. Pt apparently took 28268 tablets of ibuprofen in an attempt harm herself. Medical consult for admission H&P. Pt has no acute medical complaints at this time, and is noted to be resting comfortably in bed reading a book when 1st approached. Denies fever, chills, nausea, vomiting. No abdominal pain. Denies shortness or breath or difficulty breathing. No cough. Denies chest pain/pressure, or palpitations. No headache or acute vision changes. Labs reviewed, significant for mildly elevated cholesterol and LDL, otherwise unremarkable. Review of Systems 2 Review of Systems: Pt has no acute medical complaints at this time. [facility] Medical History (Updated 08/20/24 @ 13:14 by CHANEL Dutta) Medical clearance for psychiatric admission MDD (major depressive disorder), recurrent severe, without psychosis Social History Household Members: Family Household Members Other:: MOTHER Housing: House Do you presently have visiting nurse or other home services: No Patient Tobacco Use Status: Never used Tobacco Smoked in Last 30 Days: No e-Cigarette/Vaping Use: Never Used Second Hand Smoke Exposure: No Use of substances other than those prescribed or required for medical reasons: No Currently Displaying Signs/Symptoms of Drug Intoxication Withdrawal: No Any prior treatment program specific to substance use: No Have you been hit, kicked, punched, or otherwise hurt by someone within the past year? If so, by whom?: No Do you feel safe in your current relationship?: No Current Relationship Is there a partner from a previous relationship who is making you feel unsafe now?: No Are you made to feel afraid or neglected: No Advance Directives: No Advance Directives Information Provided: No Do you have a plan to hurt others: No Plan Recently lost weight without trying: No Eating poorly because of decreased appetite: No Nutrition Risks: No Nutritional Risk Patient : No : No Poor oral hygiene: No service: No Sexual orientation: Don't Know Meds Allergies Allergy/AdvReac Type Severity Reaction Status Date / Time Sulfa (Sulfonamide Allergy Unknown Verified 07/21/24 20:23 Antibiotics) Active Medications: Current Medications Acetaminophen (Acetaminophen 325 Mg Tablet) 650 mg PO Q6H PRN PRN Reason: Headache/Pain, Scale 1-10 Al Hydroxide/Mg Hydroxide (Magnesium Hydrox/Alum Hydrox 30 Ml Oral.Susp) 30 ml PO Q6H PRN PRN Reason: Heartburn/Nausea Bupropion HCl (Bupropion Hcl Xl 150 Mg Tab.Er.24h) 450 mg PO DAILY [facility] Last Admin: 08/20/24 09:25 Dose: 450 mg Clomipramine HCl (Clomipramine Hcl 25 Mg Capsule) 25 mg PO BEDTIME [facility] Last Admin: 08/19/24 22:57 Dose: 25 mg Clonidine HCl (Clonidine Hcl 0.1 Mg Tablet) 0.1 mg PO BID [facility]; Protocol Last Admin: 08/20/24 09:24 Dose: Not Given Duloxetine HCl (Duloxetine Hcl 60 Mg Capsule.Dr) 120 mg PO DAILY [facility] Last Admin: 08/20/24 09:25 Dose: 120 mg Hydroxyzine HCl (Hydroxyzine Hcl 25 Mg Tablet) 25 mg PO Q6H PRN PRN Reason: mild anxiety Lorazepam (Lorazepam 0.5 Mg Tablet) 0.5 mg PO DAILY PRN PRN Reason: mod-severe anxiety Magnesium Hydroxide (Milk Of Magnesia 30 Ml Oral.Susp) 30 ml PO DAILY PRN PRN Reason: Constipation Nicotine (Nicotine 21 Mg Patch.Td24) 21 mg TRANSDERMA DAILY PRN PRN Reason: smoking cessation Nicotine Polacrilex (Nicotine Polacrilex 2 Mg Gum) 4 mg BUCCAL Q2H PRN PRN Reason: Nicotine Cravings Olanzapine (Olanzapine 5 Mg Tablet) 5 mg PO TID PRN PRN Reason: agitation Trazodone HCl (Trazodone Hcl 100 Mg Tablet) 100 mg PO BEDTIME [facility] Last Admin: 08/19/24 22:57 Dose: 100 mg Trazodone HCl (Trazodone Hcl 50 Mg Tablet) 50 mg PO BEDTIME PRN PRN Reason: continued Insomnia Home Medications ?Medication ?Instructions ?Recorded ?Confirmed ?Last Taken ?Type methylphenidate HCl 36 mg 36 mg PO DAILY 07/22/24 08/19/24 Unknown History tablet,extended release 24 hr Fyavolv Control 08/19/24 Unknown History clonidine HCl 0.1 mg tablet 0.1 mg PO BID 08/19/24 08/19/24 Unknown History lorazepam DAILY PRN Anxiety 08/19/24 Unknown History Physical Exam 2 Vital Signs and Narrative: Vital Signs: Last Vital Signs Temp 97.5 F 08/20/24 08:16 Pulse 105 H 08/20/24 08:16 Resp 16 08/20/24 08:16 BP 109/68 08/20/24 08:16 Pulse Ox 99 08/20/24 08:16 O2 Del Method Room Air 08/20/24 08:16 BMI result Body Mass Index 29.0 General: AOx3, no acute distress Resp: CTA bilaterally CVS: S1, S2, RRR GI: +BS, NT, no distention Skin: Warm, dry Neuro: Cranial nerves II-XII grossly intact bilaterally. Motor grossly intact bilaterally Extremities: No edema Psych: Appropriate affect Results Labs 08/19/24 20:19 Labs: Laboratory Results - last 24 hr 08/19/24 08/20/24 20:19 08:01 Anion Gap 12 Estim Creat Clear Calc 101.2 Estimated GFR > 60 Random Glucose 95 Estimat Average Glucose 97 Hemoglobin A1c % 5.0 Calcium 9.3 Total Bilirubin 0.4 AST 19 ALT 21 Alkaline Phosphatase 62 Total Protein 6.7 Albumin 3.9 Triglycerides 107 Cholesterol 211 H LDL Cholesterol, Calc 115 H HDL Cholesterol 75 TSH 1.54 Assessment and Plan (1) Medical clearance for psychiatric admission: Status: Acute Plan Pt is a 24-year-old female with a PMH significant for?Nash syndrome and depression who is admitted to [facility] psychiatry unit for increasing depression and suicide attempt at overdosing on home medications. Pt apparently took 48450 tablets of ibuprofen in an attempt harm herself. Medical consult for admission H&P. Mood disorder Plan as per Psychiatry Nash syndrome Appears mild Not on hormone therapy Pt otherwise does not have any other known chronic medical conditions or acute medical complaints. Will sign off at this time. Thank you for allowing us to participate in the care of this pt. Please re-consult if any acute issue or need arises.
[2024-08-20 20:00] VITALS: BP 110/74; PULSE 93; RESP 16; TEMP 36.4; O2SAT 100
[2024-08-20 22:10] VITALS: BP 116/74
[2024-08-20] MEDS: cloNIDine HCL 0.1 MG TABLET PO (22:10)
[2024-08-20] MEDS: traZODone HCL 100 MG TABLET PO (22:11)
[2024-08-20] MEDS: clomiPRAMINE HCl 25 MG CAPSULE 50 MG PO (22:11)
[2024-08-21 07:10] VITALS: BP 114/78; PULSE 98; RESP 14; TEMP 36.6; O2SAT 98
[2024-08-21] MEDS: DULoxetine HCl 60 MG CAPSULE.DR 120 MG PO (09:08)
[2024-08-21] MEDS: buPROPion HCl XL 150 MG TAB.ER.24H 450 MG PO (09:08)
--- NOTE | 2024-08-21 11:16 | P.PNPSI_ITS ---
Subjective Subjective Date of Service: 08/21/24 Reason For Visit: F33.1 Subjective Notes: Conditional Voluntary Interim History: Pt reports she is doing better since she has been here on the unit. She reports she has not concerns with medications and she's tolerating them well. She reports suicidal thoughts come in waves, but has not had any today. She reports she is sleeping well with trazodone. Review of Systems Review of Systems Pt has no acute medical complaints at this time. Mental Status Exam Mental Status Exam Patient Appearance: Well Grooomed Patient Orientation: Person, Place, Time and Situation Level of Consciousness: Awake and Alert Patient Behavior: Appropriate, Cooperative and Good Eye Contact Mood Description: Calm Affect Description: Blunted Ability to Follow Directions: Good Speech Pattern: Clear and Appropriate Memory Description: Intact Diagnostics Vital Signs (24Hr): Vital Signs - 24 hr 08/20/24 20:00 08/20/24 22:10 08/21/24 07:10 Temperature 97.6 F 97.8 F Pulse Rate 93 98 Respiratory Rate 16 14 Blood Pressure 110/74 116/74 114/78 Pulse Oximetry 100 98 Oxygen Delivery Method Room Air Room Air BMI result Body Mass Index 29.0 Labs 08/19/24 20:19 Labs: Laboratory Results - last 48 hr 08/19/24 08/20/24 20:19 08:01 Sodium 140 Potassium 3.8 Chloride 106 Carbon Dioxide 26 Anion Gap 12 BUN 12 Creatinine 0.82 Estim Creat Clear Calc 101.2 Estimated GFR > 60 Random Glucose 95 Estimat Average Glucose 97 Hemoglobin A1c % 5.0 Calcium 9.3 Total Bilirubin 0.4 AST 19 ALT 21 Alkaline Phosphatase 62 Total Protein 6.7 Albumin 3.9 Triglycerides 107 Cholesterol 211 H LDL Cholesterol, Calc 115 H HDL Cholesterol 75 TSH 1.54 Medications Medications Current Medications Acetaminophen (Acetaminophen 325 Mg Tablet) 650 mg PO Q6H PRN PRN Reason: Headache/Pain, Scale 1-10 Al Hydroxide/Mg Hydroxide (Magnesium Hydrox/Alum Hydrox 30 Ml Oral.Susp) 30 ml PO Q6H PRN PRN Reason: Heartburn/Nausea Bupropion HCl (Bupropion Hcl Xl 150 Mg Tab.Er.24h) 450 mg PO DAILY [facility] Last Admin: 08/21/24 09:08 Dose: 450 mg Clomipramine HCl (Clomipramine Hcl 25 Mg Capsule) 50 mg PO BEDTIME [facility] Last Admin: 08/20/24 22:11 Dose: 50 mg Clonidine HCl (Clonidine Hcl 0.1 Mg Tablet) 0.1 mg PO BID [facility]; Protocol Last Admin: 08/21/24 09:07 Dose: Not Given Duloxetine HCl (Duloxetine Hcl 60 Mg Capsule.Dr) 120 mg PO DAILY [facility] Last Admin: 08/21/24 09:08 Dose: 120 mg Hydroxyzine HCl (Hydroxyzine Hcl 25 Mg Tablet) 25 mg PO Q6H PRN PRN Reason: mild anxiety Lorazepam (Lorazepam 0.5 Mg Tablet) 0.5 mg PO DAILY PRN PRN Reason: mod-severe anxiety Magnesium Hydroxide (Milk Of Magnesia 30 Ml Oral.Susp) 30 ml PO DAILY PRN PRN Reason: Constipation Olanzapine (Olanzapine 5 Mg Tablet) 5 mg PO TID PRN PRN Reason: agitation Trazodone HCl (Trazodone Hcl 100 Mg Tablet) 100 mg PO BEDTIME [facility] Last Admin: 08/20/24 22:11 Dose: 100 mg Allergies Allergies Allergy/AdvReac Type Severity Reaction Status Date / Time Sulfa (Sulfonamide Allergy Unknown Verified 07/21/24 20:23 Antibiotics) Assessment & Plan Assessment & Plan (1) MDD (major depressive disorder), recurrent severe, without psychosis: Status: Acute Code(s): F33.2 - Major depressive disorder, recurrent severe without psychotic features (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 Plan: 08/21 as clomipramine is increased, consider lowering trazodone, as pt also on cymbalta max dose. she reports she was taking lower dose of wellbutrin- 300mg po daily, due to some tremors- dose was decreased from 450mg to 300mg po daily. Reason for continued inpatient stay Substantial Risk for: inability to function Time Spent With Patient Time: Total time managing care of this patient today ____ minutes.
[2024-08-21 20:00] VITALS: BP 122/82; PULSE 88; RESP 18; TEMP 36.4; O2SAT 100
[2024-08-21] MEDS: cloNIDine HCL 0.1 MG TABLET PO (20:23)
[2024-08-21] MEDS: clomiPRAMINE HCl 25 MG CAPSULE 50 MG PO (20:23)
[2024-08-21] MEDS: traZODone HCL 100 MG TABLET PO (21:54)
[2024-08-22 08:00] VITALS: BP 118/70; PULSE 110; TEMP 36.2; O2SAT 100
[2024-08-22] MEDS: buPROPion HCl XL 300 MG TAB.ER.24H PO (09:06)
[2024-08-22] MEDS: DULoxetine HCl 60 MG CAPSULE.DR 120 MG PO (09:06)
--- NOTE | 2024-08-22 11:43 | P.PNPSI_ITS ---
Subjective Subjective Date of Service: 08/22/24 Reason For Visit: F33.1 Subjective Notes: Conditional Voluntary Interim History: She reports feeling okay, she has been reading a book. She reports she has not concerns with medications and she's tolerating them well. She reports suicidal thoughts come in waves, but has not had any today. She reports she is sleeping well with trazodone. Review of Systems Review of Systems Pt has no acute medical complaints at this time. Mental Status Exam Mental Status Exam Patient Appearance: Well Grooomed Patient Orientation: Person, Place, Time and Situation Level of Consciousness: Awake and Alert Patient Behavior: Appropriate, Cooperative and Good Eye Contact Mood Description: Calm Affect Description: Blunted Ability to Follow Directions: Good Speech Pattern: Clear and Appropriate Memory Description: Intact Diagnostics Vital Signs (24Hr): Vital Signs - 24 hr 08/21/24 20:00 08/22/24 08:00 Temperature 97.6 F 97.1 F Pulse Rate 88 110 H Respiratory Rate 18 Blood Pressure 122/82 118/70 Pulse Oximetry 100 100 Oxygen Delivery Method Room Air Room Air BMI result Body Mass Index 29.0 Labs 08/19/24 20:19 Medications Medications Current Medications Acetaminophen (Acetaminophen 325 Mg Tablet) 650 mg PO Q6H PRN PRN Reason: Headache/Pain, Scale 1-10 Al Hydroxide/Mg Hydroxide (Magnesium Hydrox/Alum Hydrox 30 Ml Oral.Susp) 30 ml PO Q6H PRN PRN Reason: Heartburn/Nausea Bupropion HCl (Bupropion Hcl Xl 300 Mg Tab.Er.24h) 300 mg PO DAILY [facility] [place] Last Admin: 08/22/24 09:06 Dose: 300 mg Clomipramine HCl (Clomipramine Hcl 25 Mg Capsule) 50 mg PO BEDTIME [facility] Last Admin: 08/21/24 20:23 Dose: 50 mg Clonidine HCl (Clonidine Hcl 0.1 Mg Tablet) 0.1 mg PO BID [facility] [place]; Protocol Last Admin: 08/22/24 09:09 Dose: Not Given Duloxetine HCl (Duloxetine Hcl 60 Mg Capsule.Dr) 120 mg PO DAILY [facility] [place] Last Admin: 08/22/24 09:06 Dose: 120 mg Hydroxyzine HCl (Hydroxyzine Hcl 25 Mg Tablet) 25 mg PO Q6H PRN PRN Reason: mild anxiety Lorazepam (Lorazepam 0.5 Mg Tablet) 0.5 mg PO DAILY PRN PRN Reason: mod-severe anxiety Magnesium Hydroxide (Milk Of Magnesia 30 Ml Oral.Susp) 30 ml PO DAILY PRN PRN Reason: Constipation Pt Own (Fyavolv) 1 each PO DAILY [facility] Olanzapine (Olanzapine 5 Mg Tablet) 5 mg PO TID PRN PRN Reason: agitation Trazodone HCl (Trazodone Hcl 100 Mg Tablet) 100 mg PO BEDTIME [facility] Last Admin: 08/21/24 21:54 Dose: 100 mg Allergies Allergies Allergy/AdvReac Type Severity Reaction Status Date / Time Sulfa (Sulfonamide Allergy Unknown Verified 07/21/24 20:23 Antibiotics) Assessment & Plan Assessment & Plan (1) MDD (major depressive disorder), recurrent severe, without psychosis: Status: Acute Code(s): F33.2 - Major depressive disorder, recurrent severe without psychotic features (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 Plan: 08/21 as clomipramine is increased, consider lowering trazodone, as pt also on cymbalta max dose. she reports she was taking lower dose of wellbutrin- 300mg po daily, due to some tremors- dose was decreased from 450mg to 300mg po daily. 08/22 continue tx. Reason for continued inpatient stay Substantial Risk for: inability to function Time Spent With Patient Time: Total time managing care of this patient today ____ minutes.
[2024-08-22] MEDS: ETHINYL ESTRADIOL PO (12:54)
[2024-08-22] MEDS: NORETHINDRONE ACETATE PO (12:54)
[2024-08-22 20:00] VITALS: BP 104/67; PULSE 79; RESP 16; TEMP 36.6; O2SAT 99
[2024-08-22] MEDS: traZODone HCL 100 MG TABLET PO (21:33)
[2024-08-22] MEDS: clomiPRAMINE HCl 25 MG CAPSULE 50 MG PO (21:34)
[2024-08-22 21:37] VITALS: BP 110/74
[2024-08-22] MEDS: cloNIDine HCL 0.1 MG TABLET PO (21:37)
[2024-08-23 07:55] VITALS: BP 115/72; PULSE 88; RESP 16; TEMP 36.6; O2SAT 100
[2024-08-23] MEDS: ETHINYL ESTRADIOL PO (08:19)
[2024-08-23] MEDS: NORETHINDRONE ACETATE PO (08:19)
[2024-08-23] MEDS: DULoxetine HCl 60 MG CAPSULE.DR 120 MG PO (08:19)
[2024-08-23] MEDS: buPROPion HCl XL 300 MG TAB.ER.24H PO (08:19)
--- NOTE | 2024-08-23 10:06 | HO.PSYCHPN ---
Subjective Subjective Date of Service: 08/23/24 Reason For Visit: F33.1 Subjective Notes: Conditional Voluntary Interim History: Attending groups. medication compliant. Patient reports feeling a little depressed but manageable ; pt stated, I feel like i can recognize better when I'm ruminating . denies SI/HI/VH/AH. She reports sleeping well. Discussed setting up visiting nurse for medication management however, pt declined. Medication Compliance: Yes Side effects from medications: No Attending Groups: Yes Mental Status Exam Mental Status Exam Narrative: Pt is alert and oriented; behavior is cooperative and calm; dressed in casual attire; mood is described as a little depressed ; eye contact appropriate; Speech is normal rate, volume and not pressured; thought process is organized and goal directed; Thought content is on tx; denies SI/HI/VH/AH. Diagnostics Vital Signs (24Hr): Vital Signs - 24 hr 08/22/24 20:00 08/22/24 21:37 08/23/24 07:55 Temperature 97.8 F 97.8 F Pulse Rate 79 88 Respiratory Rate 16 16 Blood Pressure 104/67 110/74 115/72 Pulse Oximetry 99 100 Oxygen Delivery Method Room Air Room Air BMI result Body Mass Index 29.0 Labs 08/19/24 20:19 Medications Medications Current Medications Acetaminophen (Acetaminophen 325 Mg Tablet) 650 mg PO Q6H PRN PRN Reason: Headache/Pain, Scale 1-10 Al Hydroxide/Mg Hydroxide (Magnesium Hydrox/Alum Hydrox 30 Ml Oral.Susp) 30 ml PO Q6H PRN PRN Reason: Heartburn/Nausea Bupropion HCl (Bupropion Hcl Xl 300 Mg Tab.Er.24h) 300 mg PO DAILY [facility] Last Admin: 08/23/24 08:19 Dose: 300 mg Clomipramine HCl (Clomipramine Hcl 25 Mg Capsule) 50 mg PO BEDTIME [facility] Last Admin: 08/22/24 21:34 Dose: 50 mg Clonidine HCl (Clonidine Hcl 0.1 Mg Tablet) 0.1 mg PO BID [facility]; Protocol Last Admin: 08/23/24 08:20 Dose: Not Given Duloxetine HCl (Duloxetine Hcl 60 Mg Capsule.Dr) 120 mg PO DAILY [facility] Last Admin: 08/23/24 08:19 Dose: 120 mg Hydroxyzine HCl (Hydroxyzine Hcl 25 Mg Tablet) 25 mg PO Q6H PRN PRN Reason: mild anxiety Lorazepam (Lorazepam 0.5 Mg Tablet) 0.5 mg PO DAILY PRN PRN Reason: mod-severe anxiety Magnesium Hydroxide (Milk Of Magnesia 30 Ml Oral.Susp) 30 ml PO DAILY PRN PRN Reason: Constipation Pt Own (Sharolyajaira) 1 each PO DAILY [facility] Last Admin: 08/23/24 08:19 Dose: 1 each Olanzapine (Olanzapine 5 Mg Tablet) 5 mg PO TID PRN PRN Reason: agitation Trazodone HCl (Trazodone Hcl 100 Mg Tablet) 100 mg PO BEDTIME [facility] Last Admin: 08/22/24 21:33 Dose: 100 mg Allergies Allergies Allergy/AdvReac Type Severity Reaction Status Date / Time Sulfa (Sulfonamide Allergy Unknown Verified 07/21/24 20:23 Antibiotics) Assessment & Plan Assessment & Plan (1) MDD (major depressive disorder), recurrent severe, without psychosis: Status: Acute Code(s): F33.2 - Major depressive disorder, recurrent severe without psychotic features (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 Plan: 08/21 as clomipramine is increased, consider lowering trazodone, as pt also on cymbalta max dose. she reports she was taking lower dose of wellbutrin- 300mg po daily, due to some tremors- dose was decreased from 450mg to 300mg po daily. 08/22 continue tx. 08/23: Attending groups. medication compliant. Patient reports feeling a little depressed but manageable ; pt stated, I feel like i can recognize better when I'm ruminating . denies SI/HI/VH/AH. She reports sleeping well. Discussed setting up visiting nurse for medication management however, pt declined. Patient educated on: diagnosis, medication risk/benefits and therapeutic strategies Reason for continued inpatient stay Substantial Risk for: med/psych decompensation Time Spent With Patient Time: Total time managing care of this patient today _20___ minutes.
[2024-08-23 22:00] VITALS: BP 114/75; PULSE 107; RESP 16; TEMP 36.6; O2SAT 100
[2024-08-23] MEDS: traZODone HCL 100 MG TABLET PO (22:01)
[2024-08-23] MEDS: cloNIDine HCL 0.1 MG TABLET PO (22:02)
[2024-08-23] MEDS: clomiPRAMINE HCl 25 MG CAPSULE 50 MG PO (22:02)
[2024-08-24 08:00] VITALS: BP 111/67; PULSE 94; RESP 16; TEMP 36.6; O2SAT 100
[2024-08-24] MEDS: buPROPion HCl XL 300 MG TAB.ER.24H PO (08:32)
[2024-08-24] MEDS: DULoxetine HCl 60 MG CAPSULE.DR 120 MG PO (08:32)
[2024-08-24] MEDS: ETHINYL ESTRADIOL PO (08:33)
[2024-08-24] MEDS: NORETHINDRONE ACETATE PO (08:33)
--- NOTE | 2024-08-24 08:59 | P.PNPSI_ITS ---
Subjective Subjective Date of Service: 08/24/24 Reason For Visit: F33.1 Subjective Notes: 3 Day Interim History: 3 day notice up on 08/26/24. Attending groups. medication compliant. Patient reports feeling good today; pt stated, if I start having ruminating thoughts again, I plan on either journaling, calling my mom or therapist, rather than acting on negative thoughts . denies SI/HI/VH/AH. She reports sleeping well. Medication Compliance: Yes Side effects from medications: No Attending Groups: Yes Mental Status Exam Mental Status Exam Narrative: Pt is alert and oriented; behavior is cooperative and calm; dressed in casual attire; mood is described as good ; eye contact appropriate; Speech is normal rate, volume and not pressured; thought process is organized and goal directed; Thought content is on tx; denies SI/HI/VH/AH. Diagnostics Vital Signs (24Hr): Vital Signs - 24 hr 08/23/24 22:00 08/24/24 08:00 Temperature 98 F 97.8 F Pulse Rate 107 H 94 Respiratory Rate 16 16 Blood Pressure 114/75 111/67 Pulse Oximetry 100 100 Oxygen Delivery Method Room Air Room Air BMI result Body Mass Index 29.0 Labs 08/19/24 20:19 Medications Medications Current Medications Acetaminophen (Acetaminophen 325 Mg Tablet) 650 mg PO Q6H PRN PRN Reason: Headache/Pain, Scale 1-10 Al Hydroxide/Mg Hydroxide (Magnesium Hydrox/Alum Hydrox 30 Ml Oral.Susp) 30 ml PO Q6H PRN PRN Reason: Heartburn/Nausea Bupropion HCl (Bupropion Hcl Xl 300 Mg Tab.Er.24h) 300 mg PO DAILY [facility] Last Admin: 08/24/24 08:32 Dose: 300 mg Clomipramine HCl (Clomipramine Hcl 25 Mg Capsule) 50 mg PO BEDTIME [facility] Last Admin: 08/23/24 22:02 Dose: 50 mg Clonidine HCl (Clonidine Hcl 0.1 Mg Tablet) 0.1 mg PO BEDTIME [facility]; Protocol Last Admin: 08/23/24 22:02 Dose: 0.1 mg Duloxetine HCl (Duloxetine Hcl 60 Mg Capsule.Dr) 120 mg PO DAILY [facility] Last Admin: 08/24/24 08:32 Dose: 120 mg Hydroxyzine HCl (Hydroxyzine Hcl 25 Mg Tablet) 25 mg PO Q6H PRN PRN Reason: mild anxiety Lorazepam (Lorazepam 0.5 Mg Tablet) 0.5 mg PO DAILY PRN PRN Reason: mod-severe anxiety Magnesium Hydroxide (Milk Of Magnesia 30 Ml Oral.Susp) 30 ml PO DAILY PRN PRN Reason: Constipation Pt Own (Carinaavolv) 1 each PO DAILY [facility] Last Admin: 08/24/24 08:33 Dose: 1 each Olanzapine (Olanzapine 5 Mg Tablet) 5 mg PO TID PRN PRN Reason: agitation Trazodone HCl (Trazodone Hcl 100 Mg Tablet) 100 mg PO BEDTIME [facility] Last Admin: 08/23/24 22:01 Dose: 100 mg Allergies Allergies Allergy/AdvReac Type Severity Reaction Status Date / Time Sulfa (Sulfonamide Allergy Unknown Verified 07/21/24 20:23 Antibiotics) Assessment & Plan Assessment & Plan (1) MDD (major depressive disorder), recurrent severe, without psychosis: Status: Acute Code(s): F33.2 - Major depressive disorder, recurrent severe without psychotic features (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 Plan: 08/21 as clomipramine is increased, consider lowering trazodone, as pt also on cymbalta max dose. she reports she was taking lower dose of wellbutrin- 300mg po daily, due to some tremors- dose was decreased from 450mg to 300mg po daily. 08/22 continue tx. 08/23: Attending groups. medication compliant. Patient reports feeling a little depressed but manageable ; pt stated, I feel like i can recognize better when I'm ruminating . denies SI/HI/VH/AH. She reports sleeping well. Discussed setting up visiting nurse for medication management however, pt declined. 08/24: 3 day notice up on 08/26/24. Attending groups. medication compliant. Patient reports feeling good today; pt stated, if I start having ruminating thoughts again, I plan on either journaling, calling my mom or therapist, rather than acting on negative thoughts . denies SI/HI/VH/AH. She reports sleeping well. continue current tx plan. Patient educated on: diagnosis, medication risk/benefits and therapeutic strategies Reason for continued inpatient stay Substantial Risk for: med/psych decompensation Time Spent With Patient Time: Total time managing care of this patient today _20___ minutes.
[2024-08-24 20:00] VITALS: BP 128/79; PULSE 100; RESP 16; TEMP 36.7; O2SAT 100
[2024-08-24] MEDS: cloNIDine HCL 0.1 MG TABLET PO (22:09)
[2024-08-24] MEDS: traZODone HCL 100 MG TABLET PO (22:09)
[2024-08-24] MEDS: clomiPRAMINE HCl 25 MG CAPSULE 50 MG PO (22:09)
[2024-08-25 07:25] VITALS: BP 100/65; PULSE 92; RESP 16; TEMP 36.6; O2SAT 98
[2024-08-25] MEDS: NORETHINDRONE ACETATE PO (08:13)
[2024-08-25] MEDS: ETHINYL ESTRADIOL PO (08:13)
[2024-08-25] MEDS: DULoxetine HCl 60 MG CAPSULE.DR 120 MG PO (08:14)
[2024-08-25] MEDS: buPROPion HCl XL 300 MG TAB.ER.24H PO (08:14)
--- NOTE | 2024-08-25 13:31 | HO.PSYCHPN ---
Subjective Subjective Date of Service: 08/25/24 Reason For Visit: F33.1 Subjective Notes: 3 Day Interim History: 3 day notice up on 08/26/24. Attending groups. medication compliant. Patient continues to report feeling good ; pt stated, I'm having a little ruminating thoughts but I'm much better at getting myself out of it . denies SI/HI/VH/AH. denies any issues at this time. States she is looking forward to discharge and plans on following up with her outpatient providers. Medication Compliance: Yes Side effects from medications: No Attending Groups: Yes Mental Status Exam Mental Status Exam Narrative: Pt is alert and oriented; behavior is cooperative and calm; dressed in casual attire; mood is described as good ; eye contact appropriate; Speech is normal rate, volume and not pressured; thought process is organized and goal directed; Thought content is on tx; denies SI/HI/VH/AH. Diagnostics Vital Signs (24Hr): Vital Signs - 24 hr 08/24/24 20:00 08/25/24 07:25 Temperature 98.0 F 97.8 F Pulse Rate 100 92 Respiratory Rate 16 16 Blood Pressure 128/79 100/65 Pulse Oximetry 100 98 Oxygen Delivery Method Room Air Room Air BMI result Body Mass Index 29.0 Labs 08/19/24 20:19 Medications Medications Current Medications Acetaminophen (Acetaminophen 325 Mg Tablet) 650 mg PO Q6H PRN PRN Reason: Headache/Pain, Scale 1-10 Al Hydroxide/Mg Hydroxide (Magnesium Hydrox/Alum Hydrox 30 Ml Oral.Susp) 30 ml PO Q6H PRN PRN Reason: Heartburn/Nausea Bupropion HCl (Bupropion Hcl Xl 300 Mg Tab.Er.24h) 300 mg PO DAILY [facility] Last Admin: 08/25/24 08:14 Dose: 300 mg Clomipramine HCl (Clomipramine Hcl 25 Mg Capsule) 50 mg PO BEDTIME [facility] Last Admin: 08/24/24 22:09 Dose: 50 mg Clonidine HCl (Clonidine Hcl 0.1 Mg Tablet) 0.1 mg PO BEDTIME [facility]; Protocol Last Admin: 08/24/24 22:09 Dose: 0.1 mg Duloxetine HCl (Duloxetine Hcl 60 Mg Capsule.Dr) 120 mg PO DAILY [facility] Last Admin: 08/25/24 08:14 Dose: 120 mg Hydroxyzine HCl (Hydroxyzine Hcl 25 Mg Tablet) 25 mg PO Q6H PRN PRN Reason: mild anxiety Lorazepam (Lorazepam 0.5 Mg Tablet) 0.5 mg PO DAILY PRN PRN Reason: mod-severe anxiety Magnesium Hydroxide (Milk Of Magnesia 30 Ml Oral.Susp) 30 ml PO DAILY PRN PRN Reason: Constipation Pt Own (Fyavolv) 1 each PO DAILY [facility] Last Admin: 08/25/24 08:13 Dose: 1 each Olanzapine (Olanzapine 5 Mg Tablet) 5 mg PO TID PRN PRN Reason: agitation Trazodone HCl (Trazodone Hcl 100 Mg Tablet) 100 mg PO BEDTIME [facility] Last Admin: 08/24/24 22:09 Dose: 100 mg Allergies Allergies Allergy/AdvReac Type Severity Reaction Status Date / Time Sulfa (Sulfonamide Allergy Unknown Verified 07/21/24 20:23 Antibiotics) Assessment & Plan Assessment & Plan (1) MDD (major depressive disorder), recurrent severe, without psychosis: Status: Acute Code(s): F33.2 - Major depressive disorder, recurrent severe without psychotic features (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 Plan: 08/21 as clomipramine is increased, consider lowering trazodone, as pt also on cymbalta max dose. she reports she was taking lower dose of wellbutrin- 300mg po daily, due to some tremors- dose was decreased from 450mg to 300mg po daily. 08/22 continue tx. 08/23: Attending groups. medication compliant. Patient reports feeling a little depressed but manageable ; pt stated, I feel like i can recognize better when I'm ruminating . denies SI/HI/VH/AH. She reports sleeping well. Discussed setting up visiting nurse for medication management however, pt declined. 08/24: 3 day notice up on 08/26/24. Attending groups. medication compliant. Patient reports feeling good today; pt stated, if I start having ruminating thoughts again, I plan on either journaling, calling my mom or therapist, rather than acting on negative thoughts . denies SI/HI/VH/AH. She reports sleeping well. continue current tx plan. 08/25: 3 day notice up on 08/26/24. Attending groups. medication compliant. Patient continues to report feeling good ; pt stated, I'm having a little ruminating thoughts but I'm much better at getting myself out of it . denies SI/HI/VH/AH. denies any issues at this time. States she is looking forward to discharge and plans on following up with her outpatient providers. Patient educated on: diagnosis, medication risk/benefits and therapeutic strategies Reason for continued inpatient stay Substantial Risk for: stable for discharge Time Spent With Patient Time: Total time managing care of this patient today _20___ minutes.
[2024-08-25 20:00] VITALS: BP 120/66; PULSE 93; RESP 16; TEMP 36.5; O2SAT 100
[2024-08-25] MEDS: clomiPRAMINE HCl 25 MG CAPSULE 50 MG PO (22:04)
[2024-08-25] MEDS: traZODone HCL 100 MG TABLET PO (22:04)
[2024-08-25 22:05] VITALS: BP 118/69
[2024-08-25] MEDS: cloNIDine HCL 0.1 MG TABLET PO (22:05)
[2024-08-26 07:15] VITALS: BP 99/57; PULSE 105; RESP 14; TEMP 36.4; O2SAT 98
[2024-08-26] MEDS: DULoxetine HCl 60 MG CAPSULE.DR 120 MG PO (08:39)
[2024-08-26] MEDS: NORETHINDRONE ACETATE PO (08:39)
[2024-08-26] MEDS: ETHINYL ESTRADIOL PO (08:39)
[2024-08-26] MEDS: buPROPion HCl XL 300 MG TAB.ER.24H PO (08:39)
--- NOTE | 2024-08-26 10:11 | P.DS_ITS ---
DS: Providers Provider Date of Service: 08/26/24 Date of admission: 08/19/24 17:18 Date of discharge: 08/26/24 Primary care physician: Unknown Physician Admitting clinician: Genevieve Copeland Attending physician on admission: Ivan Murphy Consults: 08/19/24 17:31 Consult to Hospitalist Routine Comment: Consulting Provider: [facility] Hospitalists Reason For Exam: admission physical Attending physician on discharge: Ivan Murphy Discharging clinician: Genevieve Copeland DS: Diagnosis Discharge Diagnosis (1) MDD (major depressive disorder), recurrent severe, without psychosis: Status: Acute (2) Nash syndrome: Status: Acute (3) OCD (obsessive compulsive disorder): Status: Acute DS: Medications Discharge Medications Home Medications: Home Medications ?Medication ?Instructions ?Recorded ?Confirmed methylphenidate HCl 36 mg 36 mg PO DAILY 07/22/24 08/19/24 tablet,extended release 24 hr Fyavolv Control 08/19/24 Previous Rx's ?Medication ?Instructions ?Recorded clomipramine 50 mg capsule 50 mg PO BEDTIME 7 days #7 caps 07/28/24 duloxetine 60 mg capsule,delayed 120 mg (2 x 60 mg) PO DAILY 7 days 07/28/24 release #14 caps trazodone 100 mg tablet 100 mg PO BEDTIME 7 days #7 tabs 07/28/24 bupropion HCl 300 mg 24 hr tablet, 300 mg PO DAILY 7 days #7 tabs 08/25/24 extended release clonidine HCl 0.1 mg tablet 0.1 mg PO BEDTIME 30 days #30 tabs 08/25/24 Mental Status Exam Mental Status Exam Narrative: Pt is alert and oriented; behavior is cooperative and calm; dressed in casual attire; mood is described as good ; eye contact appropriate; Speech is normal rate, volume and not pressured; thought process is organized and goal directed; Thought content is on tx; denies SI/HI/VH/AH. Data Data Completed and Pending Completed studies during hospitalization [Text1]: 08/19/24 08/20/24 20:19 08:01 Sodium 140 Potassium 3.8 Chloride 106 Carbon Dioxide 26 Anion Gap 12 BUN 12 Creatinine 0.82 Estim Creat Clear Calc 101.2 Estimated GFR > 60 Random Glucose 95 Estimat Average Glucose 97 Hemoglobin A1c % 5.0 Calcium 9.3 Total Bilirubin 0.4 AST 19 ALT 21 Alkaline Phosphatase 62 Total Protein 6.7 Albumin 3.9 Triglycerides 107 Cholesterol 211 H LDL Cholesterol, Calc 115 H HDL Cholesterol 75 TSH 1.54 DS: Summary Hospital Course Hospital Course: Patient is a 24-year-old female with history of MDD, OCD and Nash syndrome, who presented to ER via ambulance after taking 15-20 ibuprofen in a suicide attempt secondary to increased depression. Per crisis report, patient was asked multiple times if she was trying to commit suicide which patient stated, yes. Patient reports having a long history of depression. Patient was recently discharged from on 07/29/2024 with similar presentation. Patient denies substance use. Utox negative for all substances. She reports having outpatient psychiatric providers and being medication. During admission assessment, patient presents alert and oriented x3. Calm and cooperative. Patient reports feeling depressed; patient stated, I felt overwhelmed by my thoughts; that things will not get better and that I'm a bad person. My thoughts tell me I'm a bad person. It's not based off of anything that I've done. It was stupid and impulsive. I need to learn that the moment of stress will pass . Patient reports being medication compliant but does not feel the medications are working well. Patient statedy, I feel like it helps with my depression but not with my obsessive thoughts and the OCD is the main cause of my depression . Patient reports having low anxiety. States she sleeps well at night when taking trazodone. Denies SI/HI/VH/AH. Plan: CV 15 minute safety checks Continue home medications Increase Clomipramine to 50mg PO bedtime Obtain collateral Encourage group Referral for VNA/lockbox Discharge planning clomipramine is increased, consider lowering trazodone, as pt also on cymbalta max dose. she reports she was taking lower dose of wellbutrin- 300mg po daily, due to some tremors- dose was decreased from 450mg to 300mg po daily. Attending groups. medication compliant. Patient reports feeling a little depressed but manageable ; pt stated, I feel like i can recognize better when I'm ruminating . denies SI/HI/VH/AH. She reports sleeping well. Discussed setting up visiting nurse for medication management however, pt declined. 3 day notice up on 08/26/24. Attending groups. medication compliant. Patient reports feeling good today; pt stated, if I start having ruminating thoughts again, I plan on either journaling, calling my mom or therapist, rather than acting on negative thoughts . denies SI/HI/VH/AH. She reports sleeping well. continue current tx plan. 3 day notice up on 08/26/24. Attending groups. medication compliant. Patient continues to report feeling good ; pt stated, I'm having a little ruminating thoughts but I'm much better at getting myself out of it . denies SI/HI/VH/AH. denies any issues at this time. States she is looking forward to discharge and plans on following up with her outpatient providers. Status at Discharge Cognitive/behavioral status at discharge: Patient has insight and demonstrates good judgment in terms of wanting to pursue treatment. Patient has a safety plan that includes presenting to the closest ER or calling 911 if feeling unsafe. Functional status at discharge: independent ambulation Overall status at discharge: patient is back to baseline Time Spent with Patient Time attestation: Total time managing care of this patient today __20__ minutes. Time spent: Less than 30 minutes Discharge Plan Discharge Anticipated Discharge Date/Time: 08/26/24 11:00 Patient Disposition: Home, Self-Care Discharge Diagnosis: MDD, PTSD, Nash syndrome Referrals: Partial Hospitalization Program (PHP) [Other] - 09/13/24 8:00 am (This is your intake appointment. It will take place at the program. ) [place] ([facility]) [Other] - 1 Week (*Please follow up with the transplant case manager through [facility] regarding behavioral health supports that may be available to you in the community. ) Danielle Gil (Psychiatry) [Other] - 08/31/24 10:30 am (TELEHEALTH APPOINTMENT) Deedee Gutierrez (Therapy) [Other] - 08/30/24 11:00 am (TELEHEALTH APPOINTMENT) [facility] [Provider Group] - 1 Week (08-24-24 [facility] was added to patients chart. Please call [phone] to schedule your follow up appt within 7-10 days of discharge.) Discharge Medications: New bupropion HCl 300 mg Tablet Extended Release 24 Hr 300 mg PO DAILY 7 Days Qty: 7 3RF Continued methylphenidate HCl 36 mg tablet extended release 24hr 36 mg PO DAILY trazodone 100 mg Tablet 100 mg PO BEDTIME 7 Days Qty: 7 3RF clomipramine 50 mg capsule 50 mg PO BEDTIME 7 Days Qty: 7 3RF duloxetine 60 mg Capsule,Delayed Release(Dr/Ec) 120 mg PO DAILY 7 Days Qty: 14 3RF Fyavolv clonidine HCl 0.1 mg tablet 0.1 mg PO BEDTIME 30 Days Qty: 30 0RF Protocol: Hold for SBP< HOLD for SBP < : 90 Discontinued bupropion HCl 150 mg Tablet Extended Release 24 Hr 450 mg PO DAILY 7 Days Qty: 21 3RF lorazepam 0.5 mg DAILY PRN (Reason: Anxiety) Discharge Orders: Discharge Order (Routine); Ordered 08/26/24 Ordered By: Genevieve Copeland Diet: Regular diet Activity on Discharge: As tolerated Stand Alone Forms: Patient Portal Discharge page, Community Support Print Language: Ghanaian Care Plan Goals: Maintain mood and safe behaviors Take medications as prescribed Practice coping skills Continue with outpatient providers and reach out to them as needed Health Concerns: Mood stability and behaviors Plan of Treatment: Follow up with your PCP, psychiatric provider and other outpatient providers regarding above concerns Take medications as prescribed Assessment: Patient has insight and demonstrates good judgment in terms of wanting to pursue treatment. Patient has a safety plan that includes presenting to the closest ER or calling 911 if feeling unsafe. Discharge Date/Time: 08/26/24 11:52
--- NOTE | 2024-08-26 12:01 | PC.NURSE ---
Patient easily engaged. Reports feeling ready for discharge. Reports mild depression rating it 2/10. Denies feeling anxious. Denies SI/HI plan or intent at this time. Denies perceptual disturbances, no overt psychosis or expressed delusions. Denies A/V hallucinations. Planning to go to grandmothers home following discharge. All discharge paperwork reviewed with patient. All discharge appointments reviewed with patient, reports understanding. All discharge medications reviewed with patient reports understanding. All belongings taken with patient. Crisis numbers and resource booklet provided to patient.
== END 2024-08-26 11:52 | disposition home or self-care (01) | DRG 885 ==
PROVIDERS: Psychiatry & Neurology Psychiatry; Admitting Provider Psychiatry & Neurology Psychiatry; Responsible Provider Psychiatry & Neurology Psychiatry; Visit Provider Psychiatry & Neurology Psychiatry
DX: F33.2 Major depressive disorder, recurrent severe without psychotic features (principal); Q96.9 Turner's syndrome, unspecified; F42.9 Obsessive-compulsive disorder, unspecified; Z79.899 Other long term (current) drug therapy
CPT/HCPCS: 36415; 80053; 80061; 83036; 84443

== ENCOUNTER → 2024-08-19 17:18 | Outpatient (BNV) | payer OTHER, SELFPAY | PROVIDERS: Admitting Provider Psychiatry & Neurology Psychiatry; Responsible Provider Psychiatry & Neurology Psychiatry; Visit Provider Student in an Organized Health Care Education/Training Program | DX: Z00.8 Encounter for other general examination (principal) | CPT/HCPCS: 99429 ==

== ENCOUNTER → 2024-08-19 17:18 | Outpatient (BNV) | payer OTHER, SELFPAY | PROVIDERS: Admitting Provider Psychiatry & Neurology Psychiatry; Responsible Provider Psychiatry & Neurology Psychiatry; Visit Provider Registered Nurse | DX: F33.2 Major depressive disorder, recurrent severe without psychotic features (principal); Q96.9 Turner's syndrome, unspecified; F42.9 Obsessive-compulsive disorder, unspecified | CPT/HCPCS: 90792 ==

== ENCOUNTER 2024-09-27 10:26 | Emergency (ER) | payer OTHER, SELFPAY ==
[2024-09-27 10:30] VITALS: BP 127/84; PULSE 101; RESP 16; TEMP 36.1; O2SAT 100; BMI 28.9
--- NOTE | 2024-09-27 10:31 | ED_ITS ---
HPI - Psych General Chief Complaint: Psychiatric Symptoms Stated Complaint: Increased SI Time Seen by Provider: 09/27/24 10:42 Source: patient Mode of arrival: ambulatory Limitations: no limitations History of Present Illness ED Provider: Lashay Ashton PA-C HPI Narrative: Patient is a 24 year old assigned female at with a history of MDD, Nash syndrome, ADD, and OCD presenting to the emergency department today with suicidal ideation. Patient states that she is currently in a partial program but her suicidal ideation has worsened significantly over the last few days and she had an attempt just 1 month ago. Patient denies any dizziness, lightheadedness, abdominal pain, nausea, vomiting, fever, chills, blurry vision, double vision, loss of vision, chest pain, difficulty breathing, shortness of breath, back pain, night sweats, pain with urination, increased urinary frequency, increased urinary urgency, blood in her urine or stool, syncope or a near syncopal episode, recent trauma or falls, bowel incontinence, bladder incontinence, or any other complaints at this time. Onset (ago): day(s) Related Data Home Medications ?Medication ?Instructions ?Recorded ?Confirmed Fyavolv See Rx Instructions .Route 08/19/24 09/15/24 .COMPLEX Control clomipramine 50 mg capsule 75 mg PO BEDTIME 09/14/24 09/14/24 lorazepam 0.5 mg tablet 0.5 mg PO DAILY PRN Anxiety 09/15/24 09/15/24 Previous Rx's ?Medication ?Instructions ?Recorded duloxetine 60 mg capsule,delayed 120 mg (2 x 60 mg) PO DAILY 7 days 07/28/24 release #14 caps trazodone 100 mg tablet 100 mg PO BEDTIME 7 days #7 tabs 07/28/24 bupropion HCl 300 mg 24 hr tablet, 300 mg PO DAILY 7 days #7 tabs 08/25/24 extended release clonidine HCl 0.1 mg tablet 0.1 mg PO BEDTIME 30 days #30 tabs 08/25/24 clomipramine 50 mg capsule 100 mg (2 x 50 mg) PO BEDTIME 15 09/17/24 days #30 caps duloxetine 30 mg capsule,delayed 30 mg PO DAILY as directed #30 caps 09/17/24 release guanfacine 1 mg tablet,extended 1 mg PO DAILY #30 tabs 09/17/24 release 24 hr risperidone 0.25 mg tablet 0.125 - 0.25 mg (0.5 - 1 x 0.25 09/24/24 mg) PO BID as directed #20 tabs Allergies Allergy/AdvReac Type Severity Reaction Status Date / Time Sulfa (Sulfonamide Allergy Unknown Verified 09/27/24 10:33 Antibiotics) Review of Systems 2 Constitutional: Constitutional: Reports no additional constitutional complaints, Denies chills, Denies fever(s) and Denies night sweats Eyes: Eyes: Reports no additional eye complaints, Denies blurry vision, Denies change in vision, Denies diplopia, Denies eye discharge, Denies loss of vision and Denies eye pain ENT: Denies dizziness Cardiovascular: Cardiovascular: Reports no additional cardiovascular complaints, Denies chest pain, Denies lightheadedness, Denies Loss of Consciousness and Denies dyspnea Respiratory: Respiratory: Reports no additional respiratory complaints and Denies dyspnea Gastrointestinal: Gastrointestinal: Reports no additional gastrointestinal complaints, Denies abdominal pain, Denies melena, Denies hematochezia, Denies change in bowel habits and Denies change in stool character Genitourinary: Genitourinary: Denies hematuria, Denies urinary frequency, Denies dysuria, Denies urinary incontinence, Denies urinary hesitancy and Denies urinary urgency Musculoskeletal: Musculoskeletal: Reports no additional musculoskeletal complaints, Denies numbness and Denies tingling Neurologic: Denies dizziness, Denies loss of vision, Denies numbness and Denies tingling Psychiatric: Psychiatric: Denies homicidal ideation and Reports suicidal ideation Endocrine: Endocrine: Reports no additional endocrine complaints Hematologic/Lymphatic: Hematologic/Lymphatic: Reports no additional hematologic/lymphatic complaints Allergic/Immunologic: Allergic/Immunologic: Reports no additional allergic/immunologic complaints [facility] Past Medical History Attestation statement: The following information was validated with the patient. Source: old records reviewed and nursing notes reviewed Medical History Medical clearance for psychiatric admission MDD (major depressive disorder), recurrent severe, without psychosis Social History Social History Household Members: Family Household Members Other:: MOTHER Housing: House Do you presently have visiting nurse or other home services: No Patient Tobacco Use Status: Never used Tobacco Smoked in Last 30 Days: No e-Cigarette/Vaping Use: Never Used Second Hand Smoke Exposure: No Use of substances other than those prescribed or required for medical reasons: No Advance Directives: No Advance Directives Information Provided: Yes Patient : No service: No Sexual orientation: Don't Know Physical Exam 2 Vital Signs: Vital Signs: Last Vital Signs Temp 98.4 F 09/27/24 18:13 Pulse 76 09/27/24 18:13 Resp 14 09/27/24 18:13 BP 114/74 09/27/24 18:13 Pulse Ox 97 09/27/24 18:13 O2 Del Method Room Air 09/27/24 18:13 BMI result Body Mass Index 28.9 Const: General: cooperative, no acute distress, alert and awake Nutritional Appearance: well nourished Orientation/consciousness: patient oriented x3 Limitations: no limitations HEENT: Head: Yes normal to inspection and Yes atraumatic Ears: hearing grossly normal bilaterally and external ears normal General nose exam: Normal external nose present, no nasal discharge noted and no epistaxis Face and sinus: Yes normal facial exam, No abrasion and No laceration Mouth: Normal oral and palatal mucosa present, no drooling and no muffled voice Eyes: General: appearance normal, both eyes and all related structures P eriorbital: periorbital findings normal Eyelids: Yes eyelids normal C onjunctivae: conjunctivae normal Pupils: Equal, round and reactive pupils present EOM: EOMs intact bilaterally Neck: Neck: Yes normal visual inspection, Yes full ROM and Yes no lymphadenopathy Chest: Chest palpation & inspection: normal inspection of the chest Resp: Effort & Inspection: normal respiratory effort and able to speak in complete sentences GI: Inspection: Yes normal to inspection Neuro: General: patient oriented x3, moves all extremities and CN's II-XI intact bilaterally Cranial nerves: Yes Equal, round and reactive pupils present Cognition (Neuro): normal cognition Extrem: General: Yes normal to inspection, Yes full ROM and Yes capillary refill normal Psych: Appearance: grossly normal Mental Status: mental status grossly normal Affect: Sad affect present Attitude: Guarded attititude/behavior present Thought content: Suicidality present Course Course Course Narrative: This is an RME: Additional HPI, ROS, PE not included below will be deferred to primary provider. RME assessment and note performed by: Lana Davenport PA-C This is a 67-gugl-ozp-female, with a hx of Nash syndrome and depression, who presents to the ER with complaints of increased depression and SI. pt was sent in from partial hospitalization for SI. Pt was admitted to psychiatry for increased depression and suicide attempt with overdosing on home medications. Denies any attempt today. Reports social alcohol use, no drug use. Last drank 2 weeks ago, no hx of alcohol withdrawal. Plan: Labs, UA, further ER eval needed Medical Decision Making Medical Decision Making [facility] Narrative: Patient is a 24 year old assigned female at with a history of MDD, Nash syndrome, ADD, and OCD presenting to the emergency department today with suicidal ideation. Patient's physical exam was as noted in the physical exam portion of this note. Patient's blood work was unremarkable. I explained my physical exam findings as well as all test results to the patient. I answered all questions asked by the patient. Patient was evaluated by the CARE team who recommended discharge home with the patient's mother. I stressed the importance of the patient taking her medication as directed (either prescribed or as the over the counter packaging recommends). I stressed the importance of the patient following up with her primary care provider and her psychiatric providers. I stressed the importance of the patient returning to the emergency department immediately if her symptoms were to worsen or if she were to develop any suicidal ideation, homicidal ideation, dizziness, shortness of breath, difficulty breathing, chest pain, blurry vision, loss of vision, nausea, vomiting, abdominal pain, fever, chills, back pain, or any other complaints. Patient verbalized agreement and understanding with this treatment plan and discharge. Differential Diagnosis Differential Diagnoses: The differential diagnosis associated with the presentation includes SI Depression Admission/Observation Consideration of admission/observation: Escalation of care including admission/observation considered Patient would have been admitted to the hospital had her work up had any findings where hospital admission was appropriate and her clinical presentation warranted hospital admission. Consult Healthcare Provider Management of the patient was discussed with: Behavioral Health Provider (I spoke with the CARE team as noted in the MDM Rationale portion of this note. ) Lab Data [facility] Lab Attestation statement: I reviewed the patient's lab results. My interpretation of these studies and their corresponding values is that they are grossly normal. 09/27/24 10:57 09/27/24 10:57 Labs: Lab Results 09/27/24 09/27/24 Range/Units 10:57 12:27 WBC 7.2 (4.8-10.8) X10*3/uL RBC 4.79 (4.20-5.50) X10*6/uL Hgb 15.3 (12.0-16.0) g/dl Hct 43.4 (37.0-47.0) % MCV 90.6 (80.0-98.0) fL MCH 31.9 (27.0-33.0) pg MCHC 35.3 H (31.0-35.0) g/dl RDW 11.4 (11.0-16.0) % Plt Count 287 (160-400) X10*3/uL MPV 10.0 (9.4-12.3) fL Immature Gran % (Auto) 0.4 (0.0-0.4) % Neut % (Auto) 65.9 (45-73) % Lymph % (Auto) 17.4 L (20-40) % White % (Auto) 15.2 H (2-11) % Eos % (Auto) 0.7 (0-4) % Baso % (Auto) 0.4 (0-2) % Lymph # (Auto) 1.3 (1.2-4.9) X10*3/uL White # (Auto) 1.1 (0.1-1.2) X10*3/uL Eos # (Auto) 0.1 (0.0-0.4) X10*3/uL Baso # (Auto) 0.0 (0.0-0.2) X10*3/uL Abs Immat Gran (auto) 0.03 (0.00-0.03) X10*3/uL Absolute Neuts (auto) 4.8 (2.0-8.3) x10*3/uL Absolute Nucleated RBC 0.000 (0.0-0.012) X10*3/uL Nucleated RBC % (auto) 0.0 (0.0-0.2) /100WBC Sodium 138 (135-145) mmol/L Potassium 4.0 (3.3-5.1) mmol/L Chloride 107 (96-108) mmol/L Carbon Dioxide 24 (22-29) mmol/L Anion Gap 11 L (12-20) BUN 10 (9-16) mg/dL Creatinine 0.77 (0.5-1.4) mg/dL Estim Creat Clear Calc 107.5 Estimated GFR > 60 Random Glucose 87 (60-115) mg/dL Calcium 9.4 (8.4-10.2) mg/dL Total Bilirubin 0.3 (0.0-1.0) mg/dL AST 26 (5-31) U/L ALT 22 (0-31) U/L Alkaline Phosphatase 81 (39-117) U/L Total Protein 7.0 (6.5-8.0) g/dL Albumin 4.4 (3.5-5.0) g/dL Urine Color Yellow Urine Appearance Clear Urine pH 6.5 (5.0-9.0) Ur Specific [place] <= 1.005 (1.005-1.025) Urine Protein Negative (Neg-Trace) mg/dL Urine Glucose (UA) Negative (Negative) mg/dL Urine Ketones Negative (Negative) mg/dL Urine Blood Negative (Negative) Urine Nitrite Negative (Negative) Ur Leukocyte Esterase Small (1+) H (Negative) Urine RBC 0-2 (0-2) /HPF Urine WBC 11-20 H (0-5) /HPF Ur Squamous Epith Cells 11-20 (0-2) /HPF Urine Bacteria 1+ (None Seen) Hyaline Casts 0-2 (0-2) /LPF Urine Test NEGATIVE (NEGATIVE) Salicylates < 5.0 L (15-30) mg/dL Urine Opiates Screen Not Detected (Not Detect) Ur Buprenorphine Scrn Not Detected (Not Detect) ng/mL Ur Oxycodone Screen Not Detected (Not Detect) ng/mL Urine Methadone Screen Not Detected (Not Detect) ng/mL Urine Fentanyl Screen Not Detected (Not Detect) Acetaminophen < 3 (<30) mcg/mL Ur Barbiturates Screen Not Detected (Not Detect) Ur Phencyclidine Scrn Not Detected (Not Detect) Ur Amphetamines Screen POSITIVE H (Not Detect) U Benzodiazepines Scrn Not Detected (Not Detect) Urine Cocaine Screen Not Detected (Not Detect) U Marijuana (THC) Screen Not Detected (Not Detect) Ethyl Alcohol < 10 mg/dL Critical Care Time Critical Care Time Critical Care Time: Yes Total Critical Care Time: 31 Attestation: I spent 31 minutes of Critical Care Time with this patient. This does not include time spent on separately reported billable procedures. Discharge Plan Discharge Clinical Impression: Depression Patient Disposition: Home, Self-Care Instructions: Depression (DC) Additional Instructions: You were seen in our Emergency Department today for a concern regarding your mental / behavioral behavioral health. It is important after this visit today that you follow up with either your mental / behavioral health or primary care provider within 7 days (from today).? Return for any worsening symptoms or concerns such as thoughts of harming yourself or others. Please call 911 immediately if you feel your mental health is worsening.? [facility] Lif[facility]: Available 24 hours a day, 7 days a week, 365 days a year Dial 988 with any telephone to speak to someone [facility] (Mental / Behavioral health therapist: [address], [place] [phone] [facility]: [address] [place] [address] Open from 10am - 12pm (walk ins welcome) [facility] Crisis Services: [address], [place] [id number] Walk in hours from 10am - 12pm Behavioral health Network: [address] [place] [address] [address] [place] [address] Friday through Friday 8am - 8pm Friday and Friday 9am - 5pm L Follow up with your primary care provider. Return to the emergency department immediately if your symptoms worsen or if you develop any numbness, tingling, dizziness, shortness of breath, difficulty breathing, chest pain, blurry vision, loss of vision, nausea, vomiting, abdominal pain, fever, chills, back pain, or any other complaints. Please see the information below about our Patient Portal. If you are not yet enrolled in the [facility] Patient Portal, you will receive an enrollment email invitation following your visit to any [facility] care setting. You may also self-enroll in the Patient Portal by visiting our website: [email or web address] The following information is required to access the Patient Portal: - Your [facility] Medical Record Number - Your personal home email address (must match what is in your electronic medical record, Registration staff can assist with this) - Name - Date of Capabilities of the Patient Portal: - Message some providers - View upcoming appointments - Access your health summary, medical history, and visit history - View current conditions and allergies - View procedure and lab results - View your medications, including guidelines, side effects, and precautions - Complete pre-appointment questionnaires requested by your provider - Ready summary reports of your office visits and procedures To access the Patient Portal Mobile Megan, follow these directions: - Search [employer] in the Megan Store or [employer] Store - Download the Megan - Search for [facility] - Enter your login/password Prescriptions: No Action trazodone 100 mg Tablet 100 mg PO BEDTIME 7 Days Qty: 7 3RF duloxetine 60 mg Capsule,Delayed Release(Dr/Ec) 120 mg PO DAILY 7 Days Qty: 14 3RF clomipramine 50 mg capsule 75 mg PO BEDTIME lorazepam 0.5 mg tablet 0.5 mg PO DAILY PRN (Reason: Anxiety) Rx Instructions: Take 1 tablet (0.5 mg total) by mouth 1 (one) time each day. Max Daily Amount: 0.5 mg duloxetine 30 mg capsule,delayed release(DR/EC) 30 mg PO DAILY Qty: 30 0RF guanfacine 1 mg tablet extended release 24 hr 1 mg PO DAILY Qty: 30 0RF clomipramine 50 mg capsule 100 mg PO BEDTIME 15 Days Qty: 30 0RF risperidone 0.25 mg tablet 0.125 - 0.25 mg PO BID Qty: 20 0RF Fyavolv tablet See Rx Instructions .ROUTE .COMPLEX Rx Instructions: 1mg-5mcg bupropion HCl 300 mg Tablet Extended Release 24 Hr 300 mg PO DAILY 7 Days Qty: 7 3RF clonidine HCl 0.1 mg tablet 0.1 mg PO BEDTIME 30 Days Qty: 30 0RF Protocol: Hold for SBP< HOLD for SBP < : 90 Referrals: [facility] Family Medicine [Provider Group] (Call to establish and follow up with a primary care provider. If you already have a primary care provider, please follow up with them.) [facility] Primary Care, Rohini [Provider Group] (Call to establish and follow up with a primary care provider. If you already have a primary care provider, please follow up with them.) [facility] Primary Care, Carmenza [Provider Group] (Call to establish and follow up with a primary care provider. If you already have a primary care provider, please follow up with them.) [facility] Primary Care, PATSY [Provider Group] (Call to establish and follow up with a primary care provider. If you already have a primary care provider, please follow up with them.) [facility] Primary Care, [place] [Provider Group] (Call to establish and follow up with a primary care provider. If you already have a primary care provider, please follow up with them.) Interventions: [place]-Suicide Risk Severity Scale Last Done: 09/27/24 12:00 ED Discharge Assessment Last Done: 09/27/24 18:13 Discharge Date/Time: 09/27/24 18:15 Print Language: Urdu
[2024-09-27 11:01] LABS: MANUAL DIFF FLAG NO
[2024-09-27 11:04] LABS: Basophils Percent Auto 0.4 % (0-2); Eosinophils Absolute Auto 0.1 X10*3/uL (0.0-0.4); Eosinophils Percent Auto 0.7 % (0-4); Hematocrit 43.4 % (37.0-47.0); Hemoglobin 15.3 g/dl (12.0-16.0); Imm Gran Abs Auto 0.03 X10*3/uL (0.00-0.03); Imm Gran Pct Auto 0.4 % (0.0-0.4); Lymphocytes Absolute Auto 1.3 X10*3/uL (1.2-4.9); Lymphocytes Percent Auto 17.4 % (20-40); Mean Corpuscular HGB Conc 35.3 g/dl (31.0-35.0); Mean Corpuscular Hemoglobin 31.9 pg (27.0-33.0); Mean Corpuscular Volume 90.6 fL (80.0-98.0); Monocytes Absolute Auto 1.1 X10*3/uL (0.1-1.2); Monocytes Percent Auto 15.2 % (2-11); Neutrophils Absolute Auto 4.8 x10*3/uL (2.0-8.3); Neutrophils Percent Auto 65.9 % (45-73); Platelet Count 287 X10*3/uL (160-400); Red Blood Count 4.79 X10*6/uL (4.20-5.50); Red Cell Distribution Width 11.4 % (11.0-16.0); White Blood Count 7.2 X10*3/uL (4.8-10.8)
--- NOTE | 2024-09-27 11:09 | PC.NURSE ---
Report received, taken over care at this time.
[2024-09-27 11:19] LABS: Acetaminophen LAB < 3 mcg/mL (<30); Salicylate < 5.0 mg/dL (15-30)
[2024-09-27 11:23] LABS: Alanine Aminotransferase 22 U/L (0-31); Albumin Level 4.4 g/dL (3.5-5.0); Alkaline Phosphatase 81 U/L (39-117); Anion Gap 11 (12-20); Aspartate Amino Transferase 26 U/L (5-31); Bilirubin Total 0.3 mg/dL (0.0-1.0); Blood Urea Nitrogen 10 mg/dL (9-16); Calcium 9.4 mg/dL (8.4-10.2); Carbon Dioxide 24 mmol/L (22-29); Chloride 107 mmol/L (96-108); Creatinine Clr Calc Pharmacy 107.5; Estimated Glomerular Filt Rate > 60; Ethanol < 10 mg/dL; Glucose Random 87 mg/dL (60-115); Sodium 138 mmol/L (135-145)
[2024-09-27 12:50] LABS: Urine Pregnancy NEGATIVE (NEGATIVE)
[2024-09-27 12:51] LABS: Appearance Urine Clear; Color Urine Yellow; Glucose Urine UA Negative (Negative); Leukocyte Esterase Urine Small (1+) (Negative); Nitrite Urine Negative (Negative); PH 6.5 (5.0-9.0); Specific Gravity - Urine <= 1.005 (1.005-1.025); UMIC TRIGGER UA YES; UPreg QC Valid YES; Urine Blood Negative (Negative); Urine Ketones Negative (Negative); Urine Protein Negative (Neg-Trace)
[2024-09-27 12:57] LABS: Bacteria Urine 1+ (None Seen); Hyaline Casts Urine 0-2 /LPF (0-2); RBC Urine 0-2 /HPF (0-2)
--- NOTE | 2024-09-27 13:00 | PC.NURSE ---
Contacted inpatient kitchen, needs safety tray but was given a regular tray instead. Kitchen to provide new tray.
[2024-09-27 13:02] LABS: Amphetamine Screen Urine POSITIVE (Not Detect); Barbiturates, Urine Not Detected (Not Detect); Benzodiazepines Screen Urine Not Detected (Not Detect); Buprenorphine Scr Not Detected (Not Detect); Cannabinoid Screen Urine Not Detected (Not Detect); Cocaine Screen Urine Not Detected (Not Detect); Fentanyl, urine Not Detected (Not Detect); Methadone Screen, Urine Not Detected (Not Detect); Opiate Screen Urine Not Detected (Not Detect); Oxycodone Screen Urine Not Detected (Not Detect); Phencyclidine Screen Urine Not Detected (Not Detect)
--- OUTSIDE RECORDS SUMMARY | 2024-09-27 13:08 | XMS_ITS ---
Author Organization [facility] Address [address] [facility] [place] [address] Care Team Providers Care Vice President Pharmacy Name Role Phone Roxy Banuelos [place] [phone] REASON FOR VISIT bought Vircin Encounters Encounter Location Date Provider Diagnosis [address] [address] 05/05/2023 Roxy Banuelos Plan Of Treatment No Information Progress Notes * Bertha STUBBSDOB:[birth year] (23 yo F)Acc No.[id number]:05/05/2023 Patient:?Bertha Stubbs :2000???Age:23 Y???Sex:Female Address:[address] [place], [place] [address], [place], [address] * true * Date:? Generated for Printi ng/Farobertog/eTransmitting on:?09/27/2024 01:08 PM EDT
--- OUTSIDE RECORDS SUMMARY | 2024-09-27 13:08 | XMS_ITS | Patient Health Record ---
[facility] Address [address] [facility] [place] [address] Care Team Providers Care Medication Technician Name Role Phone Roxy Banuelos Unavailable [phone] Allergies Allergen (clinical drug ingredient) Drug/Non Drug [...] W/U Status Risk Notes Problem Plantar wart (75130488) Plantar wart (B07.0) Active confirmed Plan Of Treatment Pending Test Test Name Order Date 37373-Eiit Destruction, 1-14 02/01/2022 63130-Dtfr Destruction, 15 OR MORE 10/10 Insurance Providers Payer Name Payer Address Payer Phone Subscriber Number Group Number Insured Name Patient Relationship to Insured Coverage Start Date Coverage End Date [employer] [address] [place] [phone] [id number] Sylvie Rocha Child - Insured has Financial Responsibility Medical (General) History Medical History History ICD Code covid-19 Depression Surgical History Surgery Date(Month/Year) Ear tube Placement 2008
--- OUTSIDE RECORDS SUMMARY | 2024-09-27 13:08 | XMS_ITS ---
Author Organization [facility] Address [address] [facility] [place] [address] Care Team Providers Care Post Closer Name Role Phone Roxy Banuelos Unavailable [phone] Pretty Jang Unavailable [phone] Allergies Allergen (clinical drug ingredient) Drug/Non Drug [...] W/U Status Risk Notes Problem Plantar wart (36197660) Plantar wart (B07.0) Active confirmed Vital Signs Height 5 ft 3 in in 05/05/2023 Weight 145 lbs 05/05/2023 BMI 25.68 kg/m2 05/05/2023 [facility]counters [facility]counter [facility] [place] [address] [facility]/05/2023 Pretty Jang Right foot pain M79.671 [...] Notes * Bertha STUBBSDOB:[birth year] (23 yo F)Acc No.[id number]:05/05/2023 Progress Note Patient:?Darren Bertha Provider:?Pretty Jang DPM :2000???Age:23 Y???Sex:Female D ate:05/05/2023 Address:[address] [place], [place] [id number] Subjective: * Chief Complaints: * ???Wart(s) * [...] ?Marital status: single. ?Occupation: weeks/months/years, [employer] in [place]. * Medications:?TakingAbilify F vianney Oil 1000 MG [...] as directed under occlusion daily.? * Procedure Codes:?13782 Wart Destruction, 1-14, Modifiers: XS * Follow Up:?4 Weeks * Images: * Sign off status: Completed true * Provider:Yelena Jang, DPM Date:? Generated for Randolph regalado/Adrianna/Apurva on:?09/27/2024 01:08 PM EDT History and Physical Notes * HPI (History [...]
--- OUTSIDE RECORDS SUMMARY | 2024-09-27 13:08 | XMS_ITS | Clinical Summary ---
Author Organization [facility] Address [address] [place] [phone] Phone Care Team Providers Care Core Measures Abstractor Name Role Phone Physician, No Pcp Primary [...] a day. Active norethindrone-e thinyl estradiol (FEMHRT 1/5) 1-5 mg-mcg per tablet [...] (50 mg total) by mouth daily. 08/10/2024 Active traZODone (DESYREL) 50 mg tablet Take 1-2 tablets (50-100 mg total) by mouth daily. 09/12/2023 Active buPROPion XL (WELLBUTRIN XL) 300 mg 24 hr tablet Take 1 tablet (300 mg total) by mouth daily. 08/04/2020 Active DULoxetine (CYMBALTA) [address] capsule Take 2 capsules (120 mg total) by mouth daily. 06/01/2024 Active Encounters Date Type Department Care Team Description 08/18/2024 6:28 PM EST - 08/19/2024 4:52 PM EST Emergency [facility] Emergency [address] [place] [address] He Downs MD Garvin, MD Ar Brooks Parth B, MD Vatrenko, Konstantin, MD Depression, unspecified depression type (Primary Dx); Moderate episode of recurrent major depressive disorder ([facility] V24, [facility] V28) Discharge Disposition: Psychiatric Hospital 07/20/2024 7:18 PM EST - 07/21/2024 7:08 PM EST Emergency [facility] Emergency [address] [place] [address] Dallas Negrete MD Millay, MD Yissel Short, Maulik Healy DO Major depressive disorder, recurrent episode, moderate ([facility] V24, [facility] V28) (Primary Dx) Discharge Disposition: Psychiatric Hospital from Last 3 Months Medical History Medical History Date Comments 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[facility] Major depressive disorder per 20 18 EMR Generalized anxiety disorder per EMR 2018 Adhd per EMR 2018 Suicidal overdose ([facility] V 24, [facility] V28) 08/18/2024 ibuprofen, also intentional clonidine overdose jul 2024 per [...] Due Date Last Done Comments Meningococcal B Vaccine (2 of 2 - Bexsero SCDM 2-dose series) 12/21/2018 06/23/2018 Cholesterol Screening (Lipid Panel) 07/17/2019 HIV Screening 07/17/2019 Hepatitis C Screening 07/17/2019 Social Influencers of Health Screening 07/17/2019 Cervical Cancer Screening: Pap Smear 02/16/2020 COVID-19 Vaccine ( season) 2024 11/24/2020, 11/03/2020 Influenza Vaccine (Season Ended) 2025 06/23/2018, 04/01/2017, 02/22/2016, Additional history exists Depression Screening [...] Name Priority Date/Time Associated Diagnosis Comments ECG ANNOTATED 08/20/2024 ECG OUTSIDE 08/20/2024 ECG 12-LEAD STAT 08/19/2024 11:46 AM EST [...] 07/20/2024 from Last 3 Months Results * ECG-Outside (08/20/2024) Provider Onbase ND ECG ORDERABLES Final Result * ECG-Annotated (08/20/2024) Only the most recent of2 resultswithin the time period is included. Provider Onbase MD ECG ORDERABLES Final Result * ECG 12 lead (08/19/2024 11:46 AM EST) Only the most recent of3 resultswithin the time period is included. Ventricular Rate ECG 101 BPM GEMUSE Atrial Rate 101 BPM GEMUSE P-R Interval 132 ms GEMUSE QRS Duration 84 ms GEMUSE Q-T Interval 356 ms GEMUSE QTc 461 ms GEMUSE P Wave [place] 74 degrees GEMUSE R [place] 68 degrees GEMUSE T [place] 66 degrees GEMUSE ECG Interpretation Sinus tachycardia [...] time period is included. Pathologist [facility] Amphetamine Screen, Ur Negative Negative LAB CHEMISTRY METHOD 08/18/2024 7:43 PM [facility] Comment:Certain OTC medicati ons containing ephedrine, phenylephrine, pseudoephedrine and phenylpropanolamine can cause false positive results. Barbiturate Screen, Ur Negative Negative LAB CHEMISTRY METHOD 08/18/2024 7:43 PM [facility] Benzodiazepine Screen, Ur Negative Negative LAB CHEMISTRY METHOD 08/18/2024 7:43 PM [facility] Cocaine Screen, Ur Negative Negative LAB CHEMISTRY METHOD 08/18/2024 7:43 PM [facility] Opiate Screen, Ur Negative Negative LAB CHEMISTRY METHOD 08/18/2024 7:43 PM [facility] Cannabinoid (THC) Screen, Ur Negative Negative LAB CHEMISTRY METHOD 08/18/2024 7:43 PM [facility] Comment:Specimens from patie nts taking pantoprazole sodium (Protonix) have been shown to produce false positive results. Oxycodone Screen, Ur Negative Negative LAB CHEMISTRY METHOD 08/18/2024 7:43 PM [facility] Fentanyl, Ur Negative Negative LAB CHEMISTRY METHOD 08/18/2024 7:43 PM EST [facility] Urine Urine specimen obtained by clean catch procedure / Unknown Non-blood Collection / Unknown 08/18/2024 6:53 PM EST 08/18/2024 7:07 PM EST [facility] - 08/18/2024 7:43 PM EST Assay [...] MD LAB URINE ORDERABLES Final Res ult [facility] [address] [place] [address], * Buprenorphine screen, urine (08/18/2024 6:53 PM EST) Only the most recent of2 resultswithin the time period is included. Pathologist [facility] Buprenorphine Screen Urine Negative Negative LAB CHEMISTRY METHOD 08/18/2024 7:43 PM EST [facility] Urine Urine specimen obtained by clean catch procedure / Unknown Non-blood Collection / Unknown 08/18/2024 6:53 PM EST 08/18/2024 7:07 PM EST [facility] - 08/18/2024 7:43 PM EST Assay cutoff 5 ng/mL Semi-quantitative assay for screening purposes only. Unconfirmed screening result should not be used for non-medical purposes. *ALTERNATE METHOD CONFIRMATION DONE UPON REQUEST ONLY* He Downs MD LAB URINE ORDERABLES Final Res ult Performing Organization Address [facility]/ZIP Co de Phone Number [facility] [address] [place] [address], * Methadone, urine (08/18/2024 6:53 PM EST) Only the most recent of2 resultswithin the time period is included. Pathologist [facility] Methadone Screen, Urine Negative Negative LAB CHEMISTRY METHOD 08/18/2024 7:43 PM EST [facility] Comment: Assay cutoff 300 ng/mL [...] ORDERABLES Final Res ult Performing Organization Address [facility]/ZIP Co de Phone Number [facility] [address] [place] [address], [place] [phone] * CBC auto differential (08/18/2024 6:53 PM EST) Only the most recent of2 resultswithin the time period is included. [facility] WBC 8.7 4.8 - 10.8 K/mcL LAB HEMETOLOGY METHOD 08/18/2024 7:12 PM [facility] RBC 4.40 3.80 - 4.80 M/mcL LAB HEMETOLOGY METHOD 08/18/2024 7:12 PM [facility] Hemoglobin 13.8 11.5 - 16.0 g/dL LAB HEMETOLOGY METHOD 08/18/2024 7:12 PM [facility] Hematocrit 40.1 35.0 - 47.0 % LAB HEMETOLOGY METHOD 08/18/2024 7:12 PM [facility] MCV 92.0 79.0 - 98.0 FL LAB HEMETOLOGY METHOD 08/18/2024 7:12 PM [facility] MCH 31.7 27.0 - 32.0 pcg LAB HEMETOLOGY METHOD 08/18/2024 7:12 PM [facility] MCHC 34.4 32.0 - 37.0 g/dL LAB HEMETOLOGY METHOD 08/18/2024 7:12 PM [facility] RDW 11.4 11.0 - 15.0 % LAB HEMETOLOGY METHOD 08/18/2024 7:12 PM [facility] Platelets 268 130 - 400 K/mcL LAB HEMETOLOGY METHOD 08/18/2024 7:12 PM [facility] MPV 10.6 7.0 - 11.0 FL LAB HEMETOLOGY METHOD 08/18/2024 7:12 PM [facility] NRBC 0.0 <1.0 % LAB HEMETOLOGY METHOD 08/18/2024 7:12 PM [facility] NRBC Absolute 0.00 <0.10 K/mcL LAB HEMETOLOGY METHOD 08/18/2024 7:12 PM [facility] Neutrophils Relative 53.7 % LAB HEMETOLOGY METHOD 08/18/2024 7:12 PM [facility] Lymphocytes Relative 32.3 % LAB HEMETOLOGY METHOD 08/18/2024 7:12 PM [facility] Monocytes Relative 10.9 % LAB HEMETOLOGY METHOD 08/18/2024 7:12 PM [facility] Eosinophils Relative 2.3 % LAB HEMETOLOGY METHOD 08/18/2024 7:12 PM [facility] Basophils Relative 0.5 % LAB HEMETOLOGY METHOD 08/18/2024 7:12 PM [facility] Immature Granulocytes Relative 0.3 % LAB HEMETOLOGY METHOD 08/18/2024 7:12 PM EST [facility] Neutrophils Absolute 4.66 1.50 - 7.00 K/[facility] LAB HEMETOLOGY METHOD 08/18/2024 7:12 PM [facility] Lymphocytes Absolute 2.81 1.00 - 5.00 K/mcL LAB HEMETOLOGY METHOD 08/18/2024 7:12 PM [facility] Monocytes Absolute 0.95 0.20 - 1.00 K/mcL LAB HEMETOLOGY METHOD 08/18/2024 7:12 PM [facility] Eosinophils Absolute 0.20 0.00 - 0.50 K/[facility] LAB HEMETOLOGY METHOD 08/18/2024 7:12 PM [facility] Basophils Absolute 0.04 0.00 - 0.20 K/mcL LAB HEMETOLOGY METHOD 08/18/2024 7:12 PM [facility] Immature Granulocytes Absolute 0.03 0.00 - 0.03 K/[facility] LAB HEMETOLOGY METHOD 08/18/2024 7:12 PM [facility] Blood Venous blood specimen / Unknown Venipuncture / Unknown 08/18/2024 6:53 PM EST 08/18/2024 7:07 PM EST He Downs MD LAB BLOOD ORDERABLES Final Res ult [facility] [address] [place] [address], * Phencyclidine, urine (08/18/2024 6:53 PM EST) Only the most recent of2 resultswithin the time period is included. PCP Scrn, Ur Negative Negative LAB CHEMISTRY METHOD 08/18/2024 7:43 PM EST [facility] Comment: Assay cutoff 25 ng/mL [...] ORDERABLES Final Res ult Performing Organization Address [facility] de Phone Number [facility] [address] [place] [address], [place] [phone] * Ethanol (08/18/2024 6:53 PM EST) Only the most recent of2 resultswithin the time period is included. Ethanol Level <3 0 - 10 mg/dL LAB CHEMISTRY METHOD 08/18/2024 7:36 PM EST [facility] Blood Venous blood specimen / Unknown Venipuncture / Unknown 08/18/2024 6:53 PM EST 08/18/2024 7:08 PM EST us He Downs MD LAB BLOOD ORDERABLES Final Res ult Performing Organization Address [facility] de Phone Number [facility] [address] [place] [address], * (ABNORMAL) Acetaminophen level (08/18/2024 6:53 PM EST) Only the most recent of2 resultswithin the time period is included. Acetaminophen Level <2.0(L) 10.0 - 30.0 mcg/mL LAB CHEMISTRY METHOD 08/18/2024 7:38 PM EST [facility] Blood Venous blood specimen / Unknown Venipuncture / Unknown 08/18/2024 6:53 PM EST 08/18/2024 7:08 PM EST us He Downs MD LAB BLOOD ORDERABLES Final Res ult Performing Organization Address [facility]/ZIP Co de Phone Number [facility] [address] [place] [address], [place] [phone] * (ABNORMAL) Salicylate level (08/18/2024 6:53 PM EST) Only the most recent of2 resultswithin the time period is included. Salicylate Level <1.7(L) 2.0 - 29.0 mg/dL LAB CHEMISTRY METHOD 08/18/2024 7:38 PM [facility] Blood Venous blood specimen / Unknown Venipuncture / Unknown 08/18/2024 6:53 PM EST 08/18/2024 7:08 PM EST He Downs MD LAB BLOOD ORDERABLES Final Res ult Performing Organization Address [facility]/ZIP Co de Phone Number [facility] [address] [place] [address], [place] [phone] * Comprehensive metabolic panel (08/18/2024 6:53 PM EST) Only the most recent of2 resultswithin the time period is included. Sodium 136 133 - 145 mmol/L LAB CHEMISTRY METHOD 08/18/2024 7:38 PM [facility] Potassium 4.0 3.5 - 5.5 mmol/L LAB CHEMISTRY METHOD 08/18/2024 7:38 PM [facility] Comment:Hemolysis present Chloride 105 96 - 110 mmol/L LAB CHEMISTRY METHOD 08/18/2024 7:38 PM [facility] CO2 23 21 - 32 mmol/L LAB CHEMISTRY METHOD 08/18/2024 7:38 PM [facility] Anion Gap 8 3 - 11 LAB CHEMISTRY METHOD 08/18/2024 7:38 PM [facility] Glucose 90 70 - 100 mg/dL LAB CHEMISTRY METHOD 08/18/2024 7:38 PM [facility] BUN 16 5 - 25 mg/dL LAB CHEMISTRY METHOD 08/18/2024 7:38 PM [facility] Creatinine 0.76 0.50 - 1.10 mg/dL LAB CHEMISTRY METHOD 08/18/2024 7:38 PM [facility] eGFR 112 >=60 mL/min/1. 73m2 LAB CHEMISTRY METHOD 08/18/2024 7:38 PM [facility] Comment:Calculation based on the??Chronic Kidney Disease Epidemiology Collaboration (CKD-EPI) equation refit??without adjustment for race. BUN/Creatinine Ratio 21.1 LAB CHEMISTRY METHOD 08/18/2024 7:38 PM [facility] Calcium 8.9 8.5 - 10.5 mg/dL LAB CHEMISTRY METHOD 08/18/2024 7:38 PM [facility] AST (SGOT) 19 10 - 42 unit/L LAB CHEMISTRY METHOD 08/18/2024 7:38 PM [facility] ALT (SGPT) 30 10 - 60 unit/L LAB CHEMISTRY METHOD 08/18/2024 7:38 PM [facility] Alkaline Phosphatase 78 42 - 121 unit/L LAB CHEMISTRY METHOD 08/18/2024 7:38 PM [facility] Total Protein 6.5 6.0 - 8.0 g/dL LAB CHEMISTRY METHOD 08/18/2024 7:38 PM [facility] Albumin 3.7 3.2 - 5.0 g/dL LAB CHEMISTRY METHOD 08/18/2024 7:38 PM [facility] Total Bilirubin 0.2 0.0 - 1.4 mg/dL LAB CHEMISTRY METHOD 08/18/2024 7:38 PM [facility] Blood Venous blood specimen / Unknown Venipuncture / Unknown 08/18/2024 6:53 PM EST 08/18/2024 7:08 PM EST He Downs MD LAB BLOOD ORDERABLES Final Res ult [facility] [address] [place] [address], [place] [phone] * POC , urine manually resulted (07/20/2024 7:49 PM EST) Only the most recent of2 resultswithin the time period is included. HCG, Ur POC Negative Negative POC hCG Int QC Pass? Yes Yes Urine Urine specimen obtained by clean catch procedure / Unknown 07/20/2024 7:49 PM EST us Dallas Negrete MD POINT OF CARE TEST ENTER/ED IT ORDERABLES Final Result from Last 3 Months Insurance [employer] Care Teams Core Measures Abstractor Relationship Specialty Start Date End Date Physician, No Pcp PCP - General 07/20/24
--- OUTSIDE RECORDS SUMMARY | 2024-09-27 13:08 | XMS_ITS ---
Author Organization [facility] Address [address] [address] Care Team Providers Care Cath Lab Nurse Name Role Phone Roxy Banuelos Unavailable [phone] TristinPretty urban Unavailable [phone] Allergies Allergen (clinical drug ingredient) Drug/Non Drug [...] 06/05/2023 Encounters Encounter Location Date Provider Diagnosis [facility] [address] [facility] [place] [address] 06/05/2023 Pretty Jang Right foot pain M79.671 [...] Notes * Bertha STU[birth year]SDOB:[birth year] (23 yo F)Acc No.[id number]:06/05/2023 Progress Notes Patient:?Estellamanishtrice Bertha Provider:?Pretty Jang DPM :2000???Age:23 Y???Sex:Female D ate:06/05/2023 Address:[address] [place], [place] [id number] Subjective: * Chief Complaints: * ???Wart(s) * [...] with Friends. ?Marital status: single. ?Occupation: weeks/months/years, [employer] in [place]. * Medications:?TakingAbilify F vianney Oil 1000 MG [...] the lesion is completely resolved.? * Procedure Codes:?48785 Wart Destruction, 1-14, Modifiers: XS * Follow Up:?prn (Reason: Pt l eaving until November) * Images: * Sign off status: Completed true * Provider:?Pretty Jang, SATNAM Date:? Generated for Randolph regalado/Adrianna/Apurva on:?09/27/2024 01:08 [...]
[2024-09-27 14:00] VITALS: BP 129/70; PULSE 90; RESP 16; TEMP 36.7; O2SAT 98
--- NOTE | 2024-09-27 17:14 | MHC.CARE ---
Patient evaluated by the CARE Team, inpatient psychiatric treatment is not indicated at this time. ED provider, CHANEL Vale update and in agreement with plan.
[2024-09-27 18:13] VITALS: BP 114/74; PULSE 76; RESP 14; TEMP 36.9; O2SAT 97
== END 2024-09-27 18:15 | disposition home or self-care (01) ==
PROVIDERS: Physician Assistant Medical; Emergency Provider Emergency Medicine
DX: R45.851 Suicidal ideations (principal); F32.9 Major depressive disorder, single episode, unspecified; Z79.899 Other long term (current) drug therapy; Z51.81 Encounter for therapeutic drug level monitoring
CPT/HCPCS: 36415; 80053; 80143; 80179; 80307; 81001; 81025; 85025; 99285; S9485

== ENCOUNTER 2024-10-08 10:15 | Outpatient (RCR) | payer OTHER, SELFPAY ==
[2024-09-14 12:54] VITALS: BMI 29.4
[2024-09-14 12:55] VITALS: BP 102/64; PULSE 72; RESP 18; TEMP 37.1
--- NOTE | 2024-09-14 13:59 | PC.ADMIT ---
Addendum entered by Leena Rivers RN 09/14/24 14:04: Bertha reported a history of cutting in high school but has not engaged in this since then. Original Note: Bertha is a 24 year old female who was referred to [facility] after discharge from on 08/26/24 for a stay post overdose of ibuprofen. Bertha also had an admission on M5? 07/21-07/29/24 after an intentional overdose on clonidine. Bertha is alert and oriented x 4 and presents with a flat affect. Per assessment, Bertha reported that she had been struggling with ?negative and bad thoughts? and ?feeling overwhelmed by my thoughts that things will not get better and that I'm a bad person. My thoughts tell me I'm a bad person,? and My obsessive thoughts and the OCD is the main cause of my depression. ? Bertha reports that her issues with intrusive thoughts of her past have been making her symptoms progressively worse since graduating from high school years ago. Bertha also endorsed hopelessness, helplessness, worthlessness, disrupted sleep patterns, low energy and overeating.Bertha reports an approximate 30 lb weight gain over the past couple of years. Bertha also reported that her alcohol use has increased over the past 6 months and that she would like to explore her alcohol use while in the program. She identifies her alcohol use now to be 1-2 glasses of wine a few times a week. She also reports bruising on her legs from pinching herself, when asked when that happens she stated, ?when I have intrusive thoughts, most of them are about the past.
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
--- NOTE | 2024-09-16 16:01 | HO.PHP ---
Client's case was open and reviewed in teams.
--- NOTE | 2024-09-22 11:40 | HO.IOP ---
The patient became dysregulated during the second group and was pulled by the clinician. She notified that was in the bathroom and her dad who recently came to her mind and had a melt down. She asked for permission to leave but after a couple of minutes reported to be able to stay and finished the Program.
--- NOTE | 2024-09-22 13:37 | HO.IOP ---
Bertha was referred to this clinician because she was not feeling good. The clinician inquired about her symptoms and she reported passive SI. Clinician asked about a plan or intent but the client denied both. The clinician asked about her plans for after Program today and she reported spending the rest of the day with her older sister, watch a tv show, and exercise. The clinician discuss a Crisis evaluation with the client and she consider that it was not necessary. The clinician provided her with the crisis and the suicide hotline phone numbers and encouraged the client to give them a call if she's unable to decrease her thoughts or come up with a plan. The client agreed to follow up with her plan for after Program and to reach out for help in case of need.
--- NOTE | 2024-09-23 08:49 | PC.NURSE ---
Patient looking for a new PCP as she aged out of pediatrics. Patient has a new PCP appointment with [address], [place], [place] Office Number [phone]. If you need to cancel for any reason give 48 hours notice. Appointment on Sunday November 03, 2024 at 10:40 am with Nicky BUCHANAN.
--- NOTE | 2024-09-24 12:29 | HO.PHPPROGNO ---
Subjective Subjective Date of Service: 09/24/24 Reason For Visit: MDD Interim History: Patient presents for follow-up she continues to be depressed, anxious. Continues with intrusive thoughts is withdrawn flat. She notes an episode of crying in the bathroom mid week and believes this happened yesterday. Feels it ?came out of nowhere?. She admits she has not made any she says this is because her mother that she wanted to talk to her outpatient provider first, although denies that her mother has done so thus far. There is a release on record for her provider as well as for her mother. I asked if patient herself has come feels conflicted about starting medication changes which she denies and implies that it is her mother who has reservations about medication changes. I offered to speak with patient's mother however Twyla says she is currently out of work until 845 tonight. I encouraged Twyla to speak with her mom let her know that I will be trying to reach out to her to discussed treatment plan. Twyla [facility] also [facility] given the hold up with starting medication she has continued to struggle with depression continues to struggle with intrusive thoughts that are quite alarming pudding thoughts of giving up on life and feeling helpless and ?like I do not deserve to be here? she denies any thoughts of harm herself or others. Patient also mentions feeling that her therapist does not specialize and what she is dealing with Mother/ Sylvie :[phone] Provider/Danielle Gil: [phone] Medication Compliance: No Side effects from medications: Yes Attending Groups: No Review of Systems Acute medical concerns: Yes Mental Status Exam Mental Status Exam Narrative: Alert, oriented, in no acute distress. Calm, cooperative, engaged. No psychomotor agitation or neurovegetative retardation. Eye contact intermittent. Occasionally grimaces which she says is in response to thoughts/sometimes intrusive thoughts. Mood depressed, affect blunted, no lability or tearfulness. Speech normal. Thought process linear, coherent. Thought content related to stressors, transient hopelessness, passive SI or HI. Denies any intention, urge or plan to harm self. No paranoia or delusional content elicited. No evidence of psychosis. Insight and judgment - fair but adequate. Diagnostics Vital Signs (24Hr): BMI result Body Mass Index 29.4 Assessment & Plan Assessment & Plan (1) OCD (obsessive compulsive disorder): Status: Acute Code(s): F42.9 - Obsessive-compulsive disorder, unspecified (2) MDD (major depressive disorder), recurrent severe, without psychosis: Status: Acute Code(s): F33.2 - Major depressive disorder, recurrent severe without psychotic features (3) Attention-deficit hyperactivity disorder, unspecified type: Status: Acute Code(s): F90.9 - Attention-deficit hyperactivity disorder, unspecified type (4) Non-verbal learning disorder: Status: Acute Code(s): F81.89 - Other developmental disorders of scholastic skills (5) Nash syndrome: Status: Acute Code(s): Q96.9 - Nash's syndrome, unspecified Plan continue PHP (will seek extension) patient has not started on changes yet: increase clomipramine to 100 mg qhs start risperidone 0.125 mg bid as directed lower duloxetine to 90 mg/d start guanfacine 1 mg qam continue Wellbutrin 300 mg qam continue clonidine 0.1 mg qhs restart trazodone 100 mg qhs continue lorazepam 0.5 mg qd prn anxiety will plan to set up a time to talk with patient mother Sylvie [phone] Routine lab work ordered as indicated EKG, routine for baseline QTc for medication considerations as indicated UDS as indicated [employer] reviewed Safety plan reviewed Continue to monitor Patient educated on: diagnosis and medication risk/benefits Informed Consent: understands Reason for contiued partial hosp. stay Substantial Risk for: inability to function, rapid decompensation and med/psych decompensation Certification I certify that partial hospital treatment is medically necessary due to the symptoms and problems resulting from the patient's mental illness and the failure to treat the patient at the partial hospital level of care would likely result in the patient requiring inpatient psychiatric care which could not be prevented at a less intensive level of care. Total time managing care of this patient today __40__ minutes. Discharge Plan Discharge Attending provider: Doris Tabares Additional Instructions: New PCP appointment with [facility] [address] [place] [address] Office Number [phone]. If you need to cancel for any reason give 48 hours notice. Appointment on Sunday November 03, 2024 at 10:40 am with Nicky BUCHANAN. Medications: New duloxetine 30 mg capsule,delayed release(DR/EC) 30 mg PO DAILY Qty: 30 0RF guanfacine 1 mg tablet extended release 24 hr 1 mg PO DAILY Qty: 30 0RF clomipramine 50 mg capsule 100 mg PO BEDTIME 15 Days Qty: 30 0RF Continued trazodone 100 mg Tablet 100 mg PO BEDTIME 7 Days Qty: 7 3RF duloxetine 60 mg Capsule,Delayed Release(Dr/Ec) 120 mg PO DAILY 7 Days Qty: 14 3RF clomipramine 50 mg capsule 75 mg PO BEDTIME Fyavolv tablet See Rx Instructions .ROUTE .COMPLEX Rx Instructions: 1mg-5mcg bupropion HCl 300 mg Tablet Extended Release 24 Hr 300 mg PO DAILY 7 Days Qty: 7 3RF clonidine HCl 0.1 mg tablet 0.1 mg PO BEDTIME 30 Days Qty: 30 0RF Protocol: Hold for SBP< HOLD for SBP < : 90 Changed risperidone 0.25 mg tablet 0.125 - 0.25 mg PO BID Qty: 20 0RF No Action lorazepam 0.5 mg tablet 0.5 mg PO DAILY PRN (Reason: Anxiety) Rx Instructions: Take 1 tablet (0.5 mg total) by mouth 1 (one) time each day. Max Daily Amount: 0.5 mg Stand Alone Forms: Patient Portal Discharge page Print Language: Unable To Collect
--- NOTE | 2024-09-24 14:34 | HO.PHP ---
[facility] staff member spoke to Bertha's therapist upon request, in which she appeared frustrated with the program making medication changes when she had a serious suicide attempt. Bertha's therapist kept stating that she is her therapist, due to her hostile presentation, [facility] staff member asked for clarification by asking what the problem was. It was still unclear other then she doesn't feel that we should be making medication changes when we only had known her for 15 days. [facility] staff member provided her with information around the structure for [facility] She then proceeded to ask me to send her the discharge summary. [facility] staff member informed her that if she would like that information, she would need to contact medical records. [facility] staff member also stated that Bertha will be discharged with the paperwork as well for them to review together.
--- NOTE | 2024-09-27 10:21 | PC.NURSE ---
Addendum entered by Isabel Barrera RN 09/27/24 10:26: ESTRELLA Barlow also aware that patient was recently hospitalized at [facility] inpatient unit d/t depression s/p overdose on Motrin. Original Note: Patient tearful stating that she is having suicidal thoughts that are worsening. She denied having any plans of intention of killing herself. She wants to be assessed by crisis. Staff will walk her to [facility] to be evaluated. Nurse to Nurse done with Yen DE LA ROSA in [facility] ER POD.
--- NOTE | 2024-09-27 10:28 | HO.IOP ---
Clinician met with patient after an outburst and increase thoughts of suicide. The client reported that the SI have been increasing and are uncontrollable. She identified social media as a trigger and agreed to be evaluated by crisis. Another clinician brought her to the ER to be evaluated.
--- NOTE | 2024-09-27 14:32 | HO.PHP ---
[facility] staff member spoke to Yuni from the care team regarding Twyla's presentation and the level of concern we had for Twyla. PHP staff member called Samia into the room since she was the one who met with Twyla to provide insight around her presentation. Yuni explored if we have concerns for her. PHP staff member noted that the doctor has expressed having concerns but uncertain to if it were around SI or more so around intrusive thoughts. [facility] staff members encouraged Yuni to read Dr. Tabares's notes. Yuni was receptive. PHP staff member did state that Twyla has had suicide attempts in the past but noted today an increase of SI without a plan or intent and stated her protective factor is her family. Yuni appeared to get a similar report from Twyla. Yuni is attempting to get in contact with the mother. PHP staff member also shared that Twyla has not started her medications due to the mother further exploring the necessity of the medications, in which the Doctor has left a message for the mother to provide insight. Yuni was in agreement and is going to further talk with the mother and Twyla. [facility] staff member was receptive.
--- NOTE | 2024-09-27 21:34 | P.EN_ITS ---
Event Note Date of Service: 09/27/24 Event Note: Reached out to Bertha's mother Sylvie ([phone]) who provided some additional history and was very receptive to this advertising copywriter's impression and treatment plan, and voiced appreciation for medication rationale and explaination of the different levels of care and how I would typically be the one managing Bertha's medications for the duration of her partial stay, after which she would be stepped back down to her regular outpatient provider. Mom and Bertha are agreeable with plan and will be starting risperidone 0.125 mg TID. Her dose of Wellbutrin has been oscillating between 300 mg and 450 mg. Mom is not certain this has impacted the intrusive thoughts for better or worse, although there is some noted jitteriness at higher dose (and for which I had initially started patient on guanfacine, as well as risperidone). Mom also in agreement with plan to reduce duloxetine as she, like Bertha, does not believe it has been helpful. And since patient is now on a TCA, would be better to decrease dose (possibly tapering off) due to DDI netween SNRI and TCAs. WIll follow up with patient tomorrow. Time Spent With Patient Time: Total time managing care of this patient today __30__ minutes.
--- NOTE | 2024-09-28 22:28 | HO.PHPPROGNO ---
Subjective Subjective Date of Service: 09/28/24 Reason For Visit: MDD Mental Status Exam Mental Status Exam Narrative: Alert, oriented, in no acute distress. Calm, cooperative, engaged. No psychomotor agitation or neurovegetative retardation. Eye contact intermittent. Occasionally grimaces which she says is in response to thoughts/sometimes intrusive thoughts. Mood depressed, affect blunted, no lability or tearfulness. Speech normal. Thought process linear, coherent. Thought content related to stressors, transient hopelessness, passive SI or HI. Denies any intention, urge or plan to harm self. No paranoia or delusional content elicited. No evidence of psychosis. Insight and judgment - fair but adequate. Diagnostics Vital Signs (24Hr): BMI result Body Mass Index 29.4 Assessment & Plan Assessment & Plan (1) OCD (obsessive compulsive disorder): Status: Acute Code(s): F42.9 - Obsessive-compulsive disorder, unspecified (2) MDD (major depressive disorder), recurrent severe, without psychosis: Status: Acute Code(s): F33.2 - Major depressive disorder, recurrent severe without psychotic features (3) Complicated grief: Status: Acute Code(s): F43.21 - Adjustment disorder with depressed mood (4) Attention-deficit hyperactivity disorder, unspecified type: Status: Acute Code(s): F90.9 - Attention-deficit hyperactivity disorder, unspecified type (5) Non-verbal learning disorder: Status: Acute Code(s): F81.89 - Other developmental disorders of scholastic skills (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, unspecified Plan Extend PHP decrease clomipramine to 75 mg qhs continue risperidone 0.25 mg to tid-qid as directed continue lamotrigine 25 mg qd (increase by 25 mg/d q 2 weeks until reach 100 mg/day, as tolerated) continue to taper duloxetine (cont to decr by 30 mg q week until tapered off) continue guanfacine 1 mg qam continue Wellbutrin 300 mg qam continue clonidine 0.1 mg qhs continue trazodone 100 mg qhs continue lorazepam 0.5 mg qd prn anxiety Routine lab work ordered as indicated EKG, routine for baseline QTc for medication considerations as indicated UDS as indicated VS reviewed: (09/14/24) afebrile, BP 116/93;?93 bpm Continue to monitor as per protocol xtend PHP start lamotrigine 25 mg qd (increase by 25 mg/d q 2 weeks until reach 100 mg/day, as tolerated) continue clomipramine 100 mg qhs (may also consider eventually tapering off) continue risperidone 0.25 mg to tid-qid as directed continue duloxetine 90 mg/d (cont to decr by 30 mg q week until tapered off) continue guanfacine 1 mg qam continue Wellbutrin 300 mg qam continue clonidine 0.1 mg qhs continue trazodone 100 mg qhs continue lorazepam 0.5 mg qd prn anxiety Routine lab work reviewed with patient EKG, routine for baseline QTc for medication considerations as indicated UDS as indicated Continue to monitor Patient educated on: diagnosis and medication risk/benefits Informed Consent: understands Reason for contiued partial hosp. stay Substantial Risk for: inability to function, rapid decompensation and med/psych decompensation Certification I certify that partial hospital treatment is medically necessary due to the symptoms and problems resulting from the patient's mental illness and the failure to treat the patient at the partial hospital level of care would likely result in the patient requiring inpatient psychiatric care which could not be prevented at a less intensive level of care. Total time managing care of this patient today __30__ minutes. Discharge Plan Discharge Attending provider: Doris Tabares Additional Instructions: New PCP appointment with [facility] [address] [place] [address] Office Number [phone]. If you need to cancel for any reason give 48 hours notice. Appointment on Sunday November 03, 2024 at 10:40 am with Nicky BUCHANAN. Medications: New guanfacine 1 mg tablet extended release 24 hr 1 mg PO DAILY Qty: 30 0RF clomipramine 50 mg capsule 100 mg PO BEDTIME 15 Days Qty: 30 0RF lamotrigine 25 mg tablet 25 mg PO DAILY 14 Days Qty: 14 0RF clomipramine 25 mg capsule 25 mg PO DAILY Qty: 30 0RF Continued trazodone 100 mg Tablet 100 mg PO BEDTIME 7 Days Qty: 7 3RF clomipramine 50 mg capsule 75 mg PO BEDTIME duloxetine 30 mg capsule,delayed release(DR/EC) 30 mg PO DAILY Qty: 90 0RF Fyavolv tablet See Rx Instructions .ROUTE .COMPLEX Rx Instructions: 1mg-5mcg bupropion HCl 300 mg Tablet Extended Release 24 Hr 300 mg PO DAILY 7 Days Qty: 7 3RF clonidine HCl 0.1 mg tablet 0.1 mg PO BEDTIME 30 Days Qty: 30 0RF Protocol: Hold for SBP< HOLD for SBP < : 90 Changed risperidone 0.25 mg tablet 0.125 - 0.25 mg PO BID Qty: 20 0RF Discontinued duloxetine 60 mg Capsule,Delayed Release(Dr/Ec) 120 mg PO DAILY 7 Days Qty: 14 3RF No Action lorazepam 0.5 mg tablet 0.5 mg PO DAILY PRN (Reason: Anxiety) Rx Instructions: Take 1 tablet (0.5 mg total) by mouth 1 (one) time each day. Max Daily Amount: 0.5 mg Stand Alone Forms: Patient Portal Discharge page Print Language: Croatian
--- NOTE | 2024-09-29 12:58 | PC.NURSE ---
Patient wanted clarification of Risperdal dose. I spoke to Dr. Tabares via text and a f/u phone call who stated patient is to take Risperdal 0.25 mg tab taking one full tab three times a day. Take one tab in the morning, one tab at 4pm, and one tab at bedtime. Also poultry picking machine tender the Lamical from the pharmacy but do not start yet as Dr. Del Cid will discuss with patient tomorrow. I wrote down the instructions for patient and patient took a picture of the instructions on her phone.
--- NOTE | 2024-09-30 23:09 | HO.PHPPROGNO ---
Subjective Subjective Date of Service: 09/30/24 Reason For Visit: MDD Interim History: Patient seen for follow-up She reports her intrusive thoughts are much better . she rates intrusive thoughts severity at a 2 or 3 out of 10 which is now down from a 8 or 9 out of 10 . She reports noticing a difference upon increasing the dose of Risperdal from 1/2 tablet 3 times a day to a whole tablet 3 times a day as of yesterday. she reports yesterday she started feeling better and says today it is more noticeably improved. she reports mood is neutral , appears to be still on the low side. she denies any decline in her mood since we started lowering the duloxetine and in fact feels that medication was not helpful for her in terms of depression mood, anxiety or OCD symptoms. she had previously been started on clomipramine when she entered the program was at 75 mg for the past 3 weeks. She reports that had modestly helped her OCD symptoms improved from a 10/10 in severity to an 8/10 at best but was not helpful with anxiety or depression either. In fact she reportedly feels more flat on antidepressants. she also feels that her OCD symptoms are strongly associated with depression. Typically OCD symptoms are stable and non problematic when her mood is closer to baseline euthymia. we agreed to starting Lamictal as a mood stabilizer to target depression and anxiety. I suggest once her Lamictal is therapeutic she could probably afford coming off of clomipramine since Risperdal has been much more effective and could be taking on a PRN basis once her mood is stable. At which time hopefully the TCA would be redundant and could be trialed on a gradual taper to see if it is still needed. she reports sleep as pretty good . Eating regularly. She denies any suicidal thoughts today and said she had noticed that yesterday was the 1st day that she had not had any intrusive suicidal thoughts in a long time. She still presents as somewhat flat but had moments of brightening and was more engaged today and more spontaneous in her responses. Mental Status Exam Mental Status Exam Narrative: Alert, oriented, in no acute distress. Calm, cooperative, engaged. No psychomotor agitation or neurovegetative retardation. Eye contact intermittent. Occasionally grimaces. Mood less depressed, affect blunted, with moments of brightening. Speech normal. Thought process linear, coherent. Thought content related to stressors, denies hopelessness or SI or HI. Denies any intention, urge or plan to harm self or others got in a. No paranoia or delusional content elicited. No evidence of psychosis. Insight and judgment - fair but adequate. Diagnostics Vital Signs (24Hr): BMI result Body Mass Index 29.4 Assessment & Plan Assessment & Plan (1) OCD (obsessive compulsive disorder): Status: Acute Code(s): F42.9 - Obsessive-compulsive disorder, unspecified (2) MDD (major depressive disorder), recurrent severe, without psychosis: Status: Acute Code(s): F33.2 - Major depressive disorder, recurrent severe without psychotic features (3) Complicated grief: Status: Acute Code(s): F43.21 - Adjustment disorder with depressed mood (4) Attention-deficit hyperactivity disorder, unspecified type: Status: Acute Code(s): F90.9 - Attention-deficit hyperactivity disorder, unspecified type (5) Non-verbal learning disorder: Status: Acute Code(s): F81.89 - Other developmental disorders of scholastic skills (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, unspecified Plan xtend PHP start lamotrigine 25 mg qd (increase by 25 mg/d q 2 weeks until reach 100 mg/day, as tolerated) continue clomipramine 100 mg qhs (may also consider eventually tapering off) continue risperidone 0.25 mg to tid-qid as directed continue duloxetine 90 mg/d (cont to decr by 30 mg q week until tapered off) continue guanfacine 1 mg qam continue Wellbutrin 300 mg qam continue clonidine 0.1 mg qhs continue trazodone 100 mg qhs continue lorazepam 0.5 mg qd prn anxiety Routine lab work reviewed with patient EKG, routine for baseline QTc for medication considerations as indicated UDS as indicated Continue to monitor Patient educated on: diagnosis and medication risk/benefits Informed Consent: understands Reason for contiued partial hosp. stay Substantial Risk for: inability to function, rapid decompensation and med/psych decompensation Certification I certify that partial hospital treatment is medically necessary due to the symptoms and problems resulting from the patient's mental illness and the failure to treat the patient at the partial hospital level of care would likely result in the patient requiring inpatient psychiatric care which could not be prevented at a less intensive level of care. Total time managing care of this patient today __30__ minutes. Discharge Plan Discharge Attending provider: Doris Tabares Additional Instructions: New PCP appointment with [facility] [address] [place] [address] Office Number [phone]. If you need to cancel for any reason give 48 hours notice. Appointment on Sunday November 03, 2024 at 10:40 am with Nicky BUCHANAN. Medications: New guanfacine 1 mg tablet extended release 24 hr 1 mg PO DAILY Qty: 30 0RF clomipramine 50 mg capsule 100 mg PO BEDTIME 15 Days Qty: 30 0RF lamotrigine 25 mg tablet 25 mg PO DAILY 14 Days Qty: 14 0RF Continued trazodone 100 mg Tablet 100 mg PO BEDTIME 7 Days Qty: 7 3RF clomipramine 50 mg capsule 75 mg PO BEDTIME duloxetine 30 mg capsule,delayed release(DR/EC) 30 mg PO DAILY Qty: 90 0RF Fyavolv tablet See Rx Instructions .ROUTE .COMPLEX Rx Instructions: 1mg-5mcg bupropion HCl 300 mg Tablet Extended Release 24 Hr 300 mg PO DAILY 7 Days Qty: 7 3RF clonidine HCl 0.1 mg tablet 0.1 mg PO BEDTIME 30 Days Qty: 30 0RF Protocol: Hold for SBP< HOLD for SBP < : 90 Changed risperidone 0.25 mg tablet 0.125 - 0.25 mg PO BID Qty: 20 0RF Discontinued duloxetine 60 mg Capsule,Delayed Release(Dr/Ec) 120 mg PO DAILY 7 Days Qty: 14 3RF No Action lorazepam 0.5 mg tablet 0.5 mg PO DAILY PRN (Reason: Anxiety) Rx Instructions: Take 1 tablet (0.5 mg total) by mouth 1 (one) time each day. Max Daily Amount: 0.5 mg Stand Alone Forms: Patient Portal Discharge page Print Language: Central African
--- NOTE | 2024-10-01 12:03 | HO.PHPPROGNO ---
Subjective Subjective Date of Service: 10/01/24 Reason For Visit: MDD Interim History: Patient seen for follow-up. She has been regular about taking Risperdal in the morning however yesterday she noted missing her afternoon dose and did have some intrusive suicidal ideation until her mother gave her a tablet at bedtime says she woke up fine again this morning and was mostly good throughout the morning hours but in the afternoon started notice some emerging SI is planning to take her Risperdal when she gets home I suggest she could consider bringing a PRN with her to program perhaps taking a repeat dose around 13:00 would be helpful. We could also consider increasing the dose in the morning however she is not certain if this would just make her tired she did not she denies any plans of harming herself or others. She asks if I can reach out to her mother who had some questions about medication. I relayed plan to slowly taper down on duloxetine as [place] continues to be 120 mg will mom agrees to start her on 75 mg/d for the next week. Mom was also concerned that Twyla was supposed to be discharged today however I let her know that Twyla is discharge date what has been pushed out till next week which her mother was pleased about. She is hoping that Twyla could stay longer however I suggested she could reach out to the social workers to discuss details of discharge with them. Mental Status Exam Mental Status Exam Narrative: Alert, oriented, in no acute distress. Calm, cooperative, engaged. No psychomotor agitation or neurovegetative retardation. Eye contact intermittent. Occasionally grimaces. Mood less depressed, affect blunted, with moments of brightening. Speech normal. Thought process linear, coherent. Thought content related to stressors, denies hopelessness or SI or HI. Denies any intention, urge or plan to harm self or others got in a. No paranoia or delusional content elicited. No evidence of psychosis. Insight and judgment - fair but adequate. Diagnostics Vital Signs (24Hr): BMI result Body Mass Index 29.4 Assessment & Plan Assessment & Plan (1) OCD (obsessive compulsive disorder): Status: Acute Code(s): F42.9 - Obsessive-compulsive disorder, unspecified (2) MDD (major depressive disorder), recurrent severe, without psychosis: Status: Acute Code(s): F33.2 - Major depressive disorder, recurrent severe without psychotic features (3) Complicated grief: Status: Acute Code(s): F43.21 - Adjustment disorder with depressed mood (4) Attention-deficit hyperactivity disorder, unspecified type: Status: Acute Code(s): F90.9 - Attention-deficit hyperactivity disorder, unspecified type (5) Non-verbal learning disorder: Status: Acute Code(s): F81.89 - Other developmental disorders of scholastic skills (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, unspecified Plan extend PHP start lamotrigine 25 mg qd (increase by 25 mg/d q 2 weeks until reach 100 mg/day, as tolerated) continue clomipramine 100 mg qhs (may also consider eventually tapering off) continue risperidone 0.25 mg to tid-qid as directed pt reminded to decrease duloxetine to 90 mg/d (cont to decr by 30 mg q week until tapered off) continue guanfacine 1 mg qam continue Wellbutrin 300 mg qam continue clonidine 0.1 mg qhs continue trazodone 100 mg qhs continue lorazepam 0.5 mg qd prn anxiety Routine lab work reviewed with patient EKG, routine for baseline QTc for medication considerations as indicated UDS as indicated Continue to monitor Patient educated on: diagnosis and medication risk/benefits Informed Consent: understands Reason for contiued partial hosp. stay Substantial Risk for: inability to function and med/psych decompensation Certification I certify that partial hospital treatment is medically necessary due to the symptoms and problems resulting from the patient's mental illness and the failure to treat the patient at the partial hospital level of care would likely result in the patient requiring inpatient psychiatric care which could not be prevented at a less intensive level of care. Total time managing care of this patient today __40__ minutes. Discharge Plan Discharge Attending provider: Doris Tabares Additional Instructions: New PCP appointment with [facility] [address] [place] [address] Office Number [phone]. If you need to cancel for any reason give 48 hours notice. Appointment on Sunday November 03, 2024 at 10:40 am with Nicky BUCHANAN. Medications: New guanfacine 1 mg tablet extended release 24 hr 1 mg PO DAILY Qty: 30 0RF clomipramine 50 mg capsule 100 mg PO BEDTIME 15 Days Qty: 30 0RF lamotrigine 25 mg tablet 25 mg PO DAILY 14 Days Qty: 14 0RF clomipramine 25 mg capsule 25 mg PO DAILY Qty: 30 0RF Continued trazodone 100 mg Tablet 100 mg PO BEDTIME 7 Days Qty: 7 3RF clomipramine 50 mg capsule 75 mg PO BEDTIME duloxetine 30 mg capsule,delayed release(DR/EC) 30 mg PO DAILY Qty: 90 0RF Fyavolv tablet See Rx Instructions .ROUTE .COMPLEX Rx Instructions: 1mg-5mcg bupropion HCl 300 mg Tablet Extended Release 24 Hr 300 mg PO DAILY 7 Days Qty: 7 3RF clonidine HCl 0.1 mg tablet 0.1 mg PO BEDTIME 30 Days Qty: 30 0RF Protocol: Hold for SBP< HOLD for SBP < : 90 Changed risperidone 0.25 mg tablet 0.125 - 0.25 mg PO BID Qty: 20 0RF Discontinued duloxetine 60 mg Capsule,Delayed Release(Dr/Ec) 120 mg PO DAILY 7 Days Qty: 14 3RF No Action lorazepam 0.5 mg tablet 0.5 mg PO DAILY PRN (Reason: Anxiety) Rx Instructions: Take 1 tablet (0.5 mg total) by mouth 1 (one) time each day. Max Daily Amount: 0.5 mg Stand Alone Forms: Patient Portal Discharge page Print Language: Guatemalan
--- NOTE | 2024-10-05 22:44 | HO.PHPPROGNO ---
Subjective Subjective Date of Service: 10/05/24 Reason For Visit: MDD Diagnostics Vital Signs (24Hr): BMI result Body Mass Index 29.4 Assessment & Plan Certification I certify that partial hospital treatment is medically necessary due to the symptoms and problems resulting from the patient's mental illness and the failure to treat the patient at the partial hospital level of care would likely result in the patient requiring inpatient psychiatric care which could not be prevented at a less intensive level of care. Total time managing care of this patient today ____ minutes. Discharge Plan Discharge Attending provider: Doris Tabares Additional Instructions: New PCP appointment with [facility] [address] [place] [address] Office Number [phone]. If you need to cancel for any reason give 48 hours notice. Appointment on Sunday November 03, 2024 at 10:40 am with Nicky BUCHANAN. Medications: New guanfacine 1 mg tablet extended release 24 hr 1 mg PO DAILY Qty: 30 0RF clomipramine 50 mg capsule 100 mg PO BEDTIME 15 Days Qty: 30 0RF lamotrigine 25 mg tablet 25 mg PO DAILY 14 Days Qty: 14 0RF clomipramine 25 mg capsule 25 mg PO DAILY Qty: 30 0RF Continued trazodone 100 mg Tablet 100 mg PO BEDTIME 7 Days Qty: 7 3RF duloxetine 30 mg capsule,delayed release(DR/EC) 30 mg PO DAILY Qty: 90 0RF clomipramine 50 mg capsule 50 mg PO BEDTIME Qty: 30 0RF Fyavolv tablet See Rx Instructions .ROUTE .COMPLEX Rx Instructions: 1mg-5mcg bupropion HCl 300 mg Tablet Extended Release 24 Hr 300 mg PO DAILY 7 Days Qty: 7 3RF clonidine HCl 0.1 mg tablet 0.1 mg PO BEDTIME 30 Days Qty: 30 0RF Protocol: Hold for SBP< HOLD for SBP < : 90 Changed risperidone 0.25 mg tablet 0.125 - 0.25 mg PO BID Qty: 20 0RF Discontinued duloxetine 60 mg Capsule,Delayed Release(Dr/Ec) 120 mg PO DAILY 7 Days Qty: 14 3RF No Action lorazepam 0.5 mg tablet 0.5 mg PO DAILY PRN (Reason: Anxiety) Rx Instructions: Take 1 tablet (0.5 mg total) by mouth 1 (one) time each day. Max Daily Amount: 0.5 mg Stand Alone Forms: Patient Portal Discharge page Print Language: Ukrainian
--- NOTE | 2024-10-06 09:47 | PC.NURSE ---
Bertha did not show up to program this morning. I spoke to Bertha, no safety concerns, she denied SI. Stated she needed to take a day off from the program. She is planning on doing self care today as she is getting ready to go on vacation next week thus is getting some packing done today. She stated she needed an emotional break from the program as the program can be intense at times.
--- NOTE | 2024-10-08 12:01 | HO.PHPPROGNO ---
Subjective Subjective Date of Service: 10/08/24 Reason For Visit: MDD Interim History: Patient seen for follow-up, anticipating discharge at the end of program today.? ?Doing okay?. OCD symptoms have been ?much better?. She reports having an intrusive thought sometimes during the day yesterday however notes it was fleeting and does not feel problematic. . She notes that her mood feels stable, feels her main issue now is chronic issues with ?just feeling not good enough or feeling unwanted? Reports no acute issues or concerns. Medication compliant, medications well-tolerated. Denies any adverse effects.? Mood is stable.? Denies any hopelessness or SI. Denies thoughts of harming self or others at this time. Denies any aggressive ideation or HI. Denies any paranoia or AH or VH. Sleep, appetite, energy stable. Medication Compliance: Yes Side effects from medications: No Attending Groups: Yes Review of Systems Acute medical concerns: No Mental Status Exam Mental Status Exam Narrative: Alert, oriented, in no acute distress. Calm, cooperative, engaged. Eye contact intermittent. Occasionally grimaces, likely tics or mannerisms (upon inquiry, patient seems unaware). Mood stable, affect blunted, with moments of brightening. Speech normal, some mild pauses persist when articulating thoughts. Thought process linear, coherent. Thought content related to stressors, denies hopelessness or SI or HI. Denies any intention, urge or plan to harm self or others got in a. No paranoia or delusional content elicited. No evidence of psychosis. Insight and judgment - fair but adequate. Diagnostics Vital Signs (24Hr): BMI result Body Mass Index 29.4 Assessment & Plan Assessment & Plan (1) OCD (obsessive compulsive disorder): Status: Acute Code(s): F42.9 - Obsessive-compulsive disorder, unspecified (2) MDD (major depressive disorder), recurrent severe, without psychosis: Status: Acute Code(s): F33.2 - Major depressive disorder, recurrent severe without psychotic features (3) Complicated grief: Status: Acute Code(s): F43.21 - Adjustment disorder with depressed mood (4) Attention-deficit hyperactivity disorder, unspecified type: Status: Acute Code(s): F90.9 - Attention-deficit hyperactivity disorder, unspecified type (5) Non-verbal learning disorder: Status: Acute Code(s): F81.89 - Other developmental disorders of scholastic skills (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, unspecified Plan Discharge PHP continue clomipramine 75 mg qhs continue risperidone 0.25 mg to BID (split 0.125 mg QID) continue lamotrigine 50 mg qd (increase by 25 mg/d q 2 weeks until reach 100 mg/day, as tolerated) continue duloxetine 60 mg qd (will continue to taper with OP provider) continue guanfacine 1 mg qam continue Wellbutrin 300 mg qam continue clonidine 0.1 mg qhs continue trazodone 100 mg qhs continue lorazepam 0.5 mg qd prn anxiety Refills sent to pharmacy Labwork reviewed in chart Will defer further medication management to outpatient provider *Safety plan reviewed *Discharge diagnoses, treatment course, discharge plan have been reviewed with patient (including medication regime, medication management, potential side effects) as well as treatment rationale were also revisited *Discharge paperwork signed and given to patient, copy sent for scanning to chart Patient educated on: diagnosis and medication risk/benefits Informed Consent: understands Reason for contiued partial hosp. stay Substantial Risk for: stable for discharge Certification I certify that partial hospital treatment is medically necessary due to the symptoms and problems resulting from the patient's mental illness and the failure to treat the patient at the partial hospital level of care would likely result in the patient requiring inpatient psychiatric care which could not be prevented at a less intensive level of care. Total time managing care of this patient today _30___ minutes. Discharge Plan Discharge Attending provider: Doris Tabares Additional Instructions: New PCP appointment with [facility] [address] [place] [address] Office Number [phone]. If you need to cancel for any reason give 48 hours notice. Appointment on Sunday November 03, 2024 at 10:40 am with Nicky BUCHANAN. Medications: New guanfacine 1 mg tablet extended release 24 hr 1 mg PO DAILY Qty: 30 0RF clomipramine 25 mg capsule 25 mg PO DAILY Qty: 30 0RF lamotrigine 100 mg tablet 100 mg PO DAILY Qty: 30 0RF Rx Instructions: start this bottle once you have completed 75 mg/d for 2 weeks cyanocobalamin (vitamin B-12) 1,000 mcg capsule 1,000 mcg PO DAILY Qty: 30 2RF Continued trazodone 100 mg Tablet 100 mg PO BEDTIME 7 Days Qty: 7 3RF clomipramine 50 mg capsule 50 mg PO BEDTIME Qty: 30 0RF risperidone 0.25 mg tablet 0.25 mg PO BID Qty: 60 0RF Rx Instructions: continue to take as directed by provider Fyavolv tablet See Rx Instructions .ROUTE .COMPLEX Rx Instructions: 1mg-5mcg bupropion HCl 300 mg Tablet Extended Release 24 Hr 300 mg PO DAILY 7 Days Qty: 7 3RF clonidine HCl 0.1 mg tablet 0.1 mg PO BEDTIME 30 Days Qty: 30 0RF Protocol: Hold for SBP< HOLD for SBP < : 90 Changed lamotrigine 25 mg tablet See Rx Instructions .ROUTE .COMPLEX 28 Days Qty: 75 0RF Rx Instructions: take 2 tablets daily for 2 weeks, then increase to 3 tablets daily for 2 weeks duloxetine 30 mg capsule,delayed release(DR/EC) 60 mg PO DAILY Qty: 90 0RF Discontinued duloxetine 60 mg Capsule,Delayed Release(Dr/Ec) 120 mg PO DAILY 7 Days Qty: 14 3RF No Action lorazepam 0.5 mg tablet 0.5 mg PO DAILY PRN (Reason: Anxiety) Rx Instructions: Take 1 tablet (0.5 mg total) by mouth 1 (one) time each day. Max Daily Amount: 0.5 mg Stand Alone Forms: Patient Portal Discharge page Patient Education: ADHD in Adults (DC), Depression (DC), Obsessive Compulsive Disorder (DC), Obsessive Compulsive Disorder (GEN) Print Language: Solomon Islander
== END 2024-10-08 23:59 | disposition home or self-care (01) ==
LOC: HO.PHPA 10:15
PROVIDERS: Visit Provider Psychiatry & Neurology Psychiatry
DX: F33.2 Major depressive disorder, recurrent severe without psychotic features (principal); F42.9 Obsessive-compulsive disorder, unspecified; F43.21 Adjustment disorder with depressed mood; F90.9 Attention-deficit hyperactivity disorder, unspecified type; F81.89 Other developmental disorders of scholastic skills; Q96.9 Turner's syndrome, unspecified; Z79.899 Other long term (current) drug therapy
CPT/HCPCS: 90791; 90853